=== PATIENT | female | born 1940 | race Caucasian/White ===

== ENCOUNTER 2018-02-28 16:44 | Observation (INO) | payer OTHER ==
--- OUTSIDE RECORDS SUMMARY | 2018-02-28 16:48 | XMS REPORT | Clinical Summary ---
:1940 Author Organization [facility] Address [address] [place] [address] Care Team Providers Name Role Phone Michael Villareal Primary Care Provider Allergies No Known Allergies Medications Medication Sig Dispensed Refills Start Date End Date Status omeprazole (PRILOSEC) Take 20 mg by 0 Active 20 MG capsule mouth daily. lovastatin (MEVACOR) Take 20 mg by 0 Active 20 MG tablet mouth nightly. amLODIPine-benazepril Take 1 capsule 0 Active (LOTREL 5-10) 5-10 mg by mouth daily. per capsule bumetanide (BUMEX) 1 Take 1 mg by 0 Active MG tablet mouth daily. alendronate (FOSAMAX) Take 70 mg by 0 Active 70 MG tablet mouth every 7 days Take in the morning with a full glass of water, on an empty stomach, and do not take anything else by mouth or lie down for the next 30 min. . levothyroxine Take 25 mcg by 0 Active (SYNTHROID, mouth Every LEVOTHROID) 25 MCG morning on an tablet empty stomach. traMADol (ULTRAM) 50 Take 1 tablet 30 tablet 0 02/16/2018 02/26/2018 mg tablet (50 mg total) by mouth every 6 (six) hours as needed for up to 10 days. Max Daily Amount: 200 mg Active Problems Problem Noted Date Malignant neoplasm of pancreas 02/12/2018 Pancreatic cancer 02/12/2018 Pancreatic mass 02/01/2018 Obstructive jaundice due to cancer 02/01/2018 Encounters Date Type Specialty Care Team Description 02/12/2018 Surgery Mark Escalera WHIPPLE MD 02/12/2018 Anesthesia Event Beto Charlton MD 02/12/2018 Hospital General Internal Mark Escalera, - Encounter Medicine 02/16/2018 02/08/2018 Hospital Pre-Admission Testing Resource, Oqfl Encounter Preadmit Phone 02/05/2018 Travel 02/03/2018 Anesthesia Event Gastroenterology Oracio Jensen MD 02/03/2018 Surgery Gastroenterology Randy Andrew MD 02/01/2018 [facility] Internal YrnSaturnino jara Pancreatic mass (Primary Dx); - Encounter Medicine MD Huber Jaundice; 02/06/2018 Rema, Obstructive jaundice due to cancer (HCC); MD Tiffanie Hypothyroidism, unspecified type; Phyllis, Hypertension, unspecified type; MD Marbin Hyperlipidemia, unspecified hyperlipidemia type after 02/27/2017 Social History Tobacco Use Types Packs/Day Years Used Date Never Smoker Smokeless Tobacco: Never Used Alcohol Use Drinks/Week oz/Week Comments No Sex Assigned at Date Recorded Not on file Job Start Date Occupation Industry Not on file Not on file Not on file Travel History Travel Start Travel End No recent travel history available. Last Filed Vital Signs Vital Sign Reading Time Taken Blood Pressure 149/62 02/16/2018 7:49 AM ROLLER CHECKER Pulse 90 02/16/2018 7:49 AM ROLLER CHECKER Temperature 36.8 C (98.3 F) 02/16/2018 7:49 AM ROLLER CHECKER Respiratory Rate 18 02/16/2018 7:49 AM ROLLER CHECKER Oxygen Saturation 97% 02/16/2018 7:49 AM ROLLER CHECKER Inhaled Oxygen Concentration - - Weight 62.6 kg (137 lb 14.4 oz) 02/14/2018 10:22 AM ROLLER CHECKER Height 162.6 cm (5' 4") 02/12/2018 6:07 AM ROLLER CHECKER Body Mass Index 23.67 02/14/2018 10:22 AM ROLLER CHECKER Plan of Treatment Not on file Implants Implanted Type Area Photocopying Equipment Mechanic Device Shelf Model / Identifier Expiration Serial / Lot Date Cath Exp [employer] 12.5cmx [id number] - [id number] Pain Left: LARRY BANDA 02/19/2020 [id number] / Implanted: Qty: 1 on 02/12/2018 by Mark Escalera MD Mgmt/Sti Abdomen / mulator [id number] Cath Exp [employer] License[employer] 12.5cmx [id number] - [id number] Pain Left: LARRY BNADA 02/19/2020 [id number] / Implanted: Qty: 1 on 02/12/2018 by Mark Escalera MD Mgmt/Sti Abdomen / mulator [id number] Stent Viabil Bili 10x6 No Hole [id number] - [id number] Stents-P Bile Duct [employer] GORE & [id number] / Implanted: Qty: 1 on 02/03/2018 by Randy Andrew MD [email or web address] ASSC: MED PRDT [id number] / l [id number] Procedures Procedure Name Priority Date/Time Associated Comments Diagnosis INTRAOPERATIVE PATH 02/26/2018 2:33 REPORT - SCAN PM ROLLER CHECKER RHYTHM STRIP - SCAN 02/19/2018 1:53 PM ROLLER CHECKER HEPATIC FUNCTION PANEL Routine 02/16/2018 5:29 Results for this AM ROLLER CHECKER procedure are in the results section. CBC (HEMOGRAM ONLY) Routine 02/15/2018 4:57 Results for this AM ROLLER CHECKER procedure are in the results section. PHOSPHORUS Routine 02/15/2018 4:57 Results for this AM ROLLER CHECKER procedure are in the results section. HEPATIC FUNCTION PANEL Routine 02/15/2018 4:57 Results for this AM ROLLER CHECKER procedure are in the results section. MAGNESIUM Routine 02/15/2018 4:57 Results for this AM ROLLER CHECKER procedure are in the results section. BASIC METABOLIC PANEL Routine 02/15/2018 4:57 Results for this (7) AM ROLLER CHECKER procedure are in the results section. AMYLASE, BODY FLUID Routine 02/15/2018 4:53 Results for this AM ROLLER CHECKER procedure are in the results section. AMYLASE, BODY FLUID Routine 02/15/2018 4:53 Results for this AM ROLLER CHECKER procedure are in the results section. URINALYSIS W/ REFLEX Routine 02/14/2018 6:09 Results for this URINE CULTURE AM ROLLER CHECKER procedure are in the results section. CBC (HEMOGRAM ONLY) Routine 02/14/2018 3:51 Results for this AM ROLLER CHECKER procedure are in the results section. PHOSPHORUS Routine 02/14/2018 3:51 Results for this AM ROLLER CHECKER procedure are in the results section. HEPATIC FUNCTION PANEL Routine 02/14/2018 3:51 Results for this AM ROLLER CHECKER procedure are in the results section. MAGNESIUM Routine 02/14/2018 3:51 Results for this AM ROLLER CHECKER procedure are in the results section. BASIC METABOLIC PANEL Routine 02/14/2018 3:51 Results for this (7) AM ROLLER CHECKER procedure are in the results section. AMYLASE, BODY FLUID Routine 02/14/2018 3:46 Results for this AM ROLLER CHECKER procedure are in the results section. AMYLASE, BODY FLUID Routine 02/14/2018 2:16 Results for this AM ROLLER CHECKER procedure are in the results section. TRANSFUSION SERVICE 02/13/2018 6:00 REPORT - SCAN PM ROLLER CHECKER CBC (HEMOGRAM ONLY) Routine 02/13/2018 6:01 Results for this AM ROLLER CHECKER procedure are in the results section. PHOSPHORUS Routine 02/13/2018 6:01 Results for this AM ROLLER CHECKER procedure are in the results section. HEPATIC FUNCTION PANEL Routine 02/13/2018 6:01 Results for this AM ROLLER CHECKER procedure are in the results section. MAGNESIUM Routine 02/13/2018 6:01 Results for this AM ROLLER CHECKER procedure are in the results section. BASIC METABOLIC PANEL Routine 02/13/2018 6:01 Results for this (7) AM ROLLER CHECKER procedure are in the results section. AMYLASE, BODY FLUID Routine 02/13/2018 6:01 Results for this AM ROLLER CHECKER procedure are in the results section. AMYLASE, BODY FLUID Routine 02/13/2018 6:01 Results for this AM ROLLER CHECKER procedure are in the results section. BASIC METABOLIC PANEL Routine 02/12/2018 4:46 Results for this (7) PM ROLLER CHECKER procedure are in the results section. CBC (HEMOGRAM ONLY) Routine 02/12/2018 4:46 Results for this PM ROLLER CHECKER procedure are in the results section. POTASSIUM Routine 02/12/2018 4:46 Results for this PM ROLLER CHECKER procedure are in the results section. BLOOD GAS, ARTERIAL STAT 02/12/2018 12:30 Results for this PM ROLLER CHECKER procedure are in the results section. CALCIUM, IONIZED STAT 02/12/2018 12:30 Results for this PM ROLLER CHECKER procedure are in the results section. HGB/HCT (H&H) - STAT STAT 02/12/2018 12:30 Results for this LAB PM ROLLER CHECKER procedure are in the results section. GLUCOSE-STAT LAB STAT 02/12/2018 12:30 Results for this PM ROLLER CHECKER procedure are in the results section. POTASSIUM-STAT LAB STAT 02/12/2018 12:30 Results for this PM ROLLER CHECKER procedure are in the results section. SODIUM NA-STAT LAB STAT 02/12/2018 12:30 Results for this PM ROLLER CHECKER procedure are in the results section. ANAEROBIC CULTURE Routine 02/12/2018 10:03 Results for this AM ROLLER CHECKER procedure are in the results section. SURGICALLY OBTAINED Routine 02/12/2018 10:03 Results for this CULTURE + GRAM STAIN AM ROLLER CHECKER procedure are in the results section. ANAEROBIC CULTURE Routine 02/12/2018 9:54 Results for this AM ROLLER CHECKER procedure are in the results section. SURGICALLY OBTAINED Routine 02/12/2018 9:54 Results for this CULTURE + GRAM STAIN AM ROLLER CHECKER procedure are in the results section. TISSUE EXAM AP Routine 02/12/2018 9:23 Results for this AM ROLLER CHECKER procedure are in the results section. ANESTHESIA SPINAL Routine 02/12/2018 8:58 Results for this BLOCK AM ROLLER CHECKER procedure are in the results section. BLOOD GAS, ARTERIAL STAT 02/12/2018 8:50 Results for this AM ROLLER CHECKER procedure are in the results section. CALCIUM, IONIZED STAT 02/12/2018 8:50 Results for this AM ROLLER CHECKER procedure are in the results section. HGB/HCT (H&H) - STAT STAT 02/12/2018 8:50 Results for this LAB AM ROLLER CHECKER procedure are in the results section. GLUCOSE-STAT LAB STAT 02/12/2018 8:50 Results for this AM ROLLER CHECKER procedure are in the results section. POTASSIUM-STAT LAB STAT 02/12/2018 8:50 Results for this AM ROLLER CHECKER procedure are in the results section. SODIUM NA-STAT LAB STAT 02/12/2018 8:50 Results for this AM ROLLER CHECKER procedure are in the results section. WHIPPLE 02/12/2018 8:00 Malignant neoplasm AM ROLLER CHECKER of pancreas, unspecified location of malignancy (HCC) Special Needs (ERAS PROTOCOL) PREPARE LEUKO-REDUCED Routine 02/12/2018 7:56 AM Results for this RBC ROLLER CHECKER procedure are in the results section. TYPE AND SCREEN, Routine 02/12/2018 6:28 AM Results for this AUTOMATED ROLLER CHECKER procedure are in the results section. POTASSIUM-STAT LAB Routine 02/12/2018 6:28 AM Results for this ROLLER CHECKER procedure are in the results section. RHYTHM STRIP - SCAN 02/07/2018 2:40 PM CDT CBC W/PLT COUNT & AUTO Routine 02/06/2018 5:32 AM Results for this DIFFERENTIAL CDT procedure are in the results section. CBC W/PLT COUNT & AUTO Routine 02/06/2018 5:32 AM Results for this DIFFERENTIAL CDT procedure are in the results section. MAGNESIUM Routine 02/06/2018 5:32 AM Results for this CDT procedure are in the results section. HEPATIC FUNCTION PANEL Routine 02/06/2018 5:32 AM Results for this CDT procedure are in the results section. BASIC METABOLIC PANEL Routine 02/06/2018 5:32 AM Results for this (7) CDT procedure are in the results section. CT ABD/PELVIS - STAT 02/05/2018 3:30 PM Results for this PANCREAS EVALUATION CDT procedure are in the results section. CBC W/PLT COUNT & AUTO Routine 02/05/2018 6:39 AM Results for this DIFFERENTIAL CDT procedure are in the results section. CBC W/PLT COUNT & AUTO Routine 02/05/2018 6:39 AM Results for this DIFFERENTIAL CDT procedure are in the results section. MAGNESIUM Routine 02/05/2018 6:39 AM Results for this CDT procedure are in the results section. HEPATIC FUNCTION PANEL Routine 02/05/2018 6:39 AM Results for this CDT procedure are in the results section. BASIC METABOLIC PANEL Routine 02/05/2018 6:39 AM Results for this (7) CDT procedure are in the results section. CBC W/PLT COUNT & AUTO Routine 02/04/2018 3:54 AM Results for this DIFFERENTIAL CDT procedure are in the results section. CBC W/PLT COUNT & AUTO Routine 02/04/2018 3:54 AM Results for this DIFFERENTIAL CDT procedure are in the results section. MAGNESIUM Routine 02/04/2018 3:54 AM Results for this CDT procedure are in the results section. HEPATIC FUNCTION PANEL Routine 02/04/2018 3:54 AM Results for this CDT procedure are in the results section. BASIC METABOLIC PANEL Routine 02/04/2018 3:54 AM Results for this (7) CDT procedure are in the results section. REPORT OF PROCEDURE - 02/03/2018 2:34 PM ENDOSCOPY URL CDT REPORT OF PROCEDURE - 02/03/2018 2:31 PM ENDOSCOPY URL CDT FL ERCP Routine 02/03/2018 1:14 PM Results for this CDT procedure are in the results section. CYTOLOGY REQUEST Routine 02/03/2018 1:08 PM Results for this CDT procedure are in the results section. FINE NEEDLE ASPIRATE Routine 02/03/2018 1:08 PM Results for this (FNA) REQUEST CDT procedure are in the results section. CYTOLOGY AP Routine 02/03/2018 1:08 PM Results for this CDT procedure are in the results section. FINE NEEDLE ASPIRATION AP Routine 02/03/2018 1:08 PM Results for this BY CLINICIAN CDT procedure are in the results section. TISSUE EXAM AP Routine 02/03/2018 1:07 PM Results for this CDT procedure are in the results section. ERCP,BILIARY STENT 02/03/2018 11:30 AM Pancreatic mass CDT ERCP,PAPILLOTOMY 02/03/2018 11:30 AM Pancreatic mass CDT ERCP,BALLOON SWEEPING 02/03/2018 11:30 AM Pancreatic mass CDT UPPER ENDOSCOPY,FNA 02/03/2018 11:30 AM Pancreatic mass W/ULTRASOUND CDT PROCEDURE W/ C-ARM 02/03/2018 11:30 AM Pancreatic mass CDT ERCP 02/03/2018 11:30 AM Pancreatic mass CDT CBC W/PLT COUNT & AUTO Routine 02/03/2018 5:38 AM Results for this DIFFERENTIAL CDT procedure are in the results section. CBC W/PLT COUNT & AUTO Routine 02/03/2018 5:38 AM Results for this DIFFERENTIAL CDT procedure are in the results section. MAGNESIUM Routine 02/03/2018 5:38 AM Results for this CDT procedure are in the results section. HEPATIC FUNCTION PANEL Routine 02/03/2018 5:38 AM Results for this CDT procedure are in the results section. BASIC METABOLIC PANEL Routine 02/03/2018 5:38 AM Results for this (7) CDT procedure are in the results section. AMYLASE Routine 02/03/2018 5:38 AM Results for this CDT procedure are in the results section. LIPASE Routine 02/03/2018 5:38 AM Results for this CDT procedure are in the results section. URINALYSIS W/ STAT 02/02/2018 7:33 PM Results for this MICROSCOPIC CDT procedure are in the results section. URINE CULTURE Add-On 02/02/2018 7:33 PM Results for this CDT procedure are in the results section. CBC W/PLT COUNT & AUTO Routine 02/02/2018 6:24 AM Results for this DIFFERENTIAL CDT procedure are in the results section. CBC W/PLT COUNT & AUTO Routine 02/02/2018 6:24 AM Results for this DIFFERENTIAL CDT procedure are in the results section. MAGNESIUM Routine 02/02/2018 6:24 AM Results for this CDT procedure are in the results section. HEPATIC FUNCTION PANEL Routine 02/02/2018 6:24 AM Results for this CDT procedure are in the results section. BASIC METABOLIC PANEL Routine 02/02/2018 6:24 AM Results for this (7) CDT procedure are in the results section. CBC W/PLT COUNT & AUTO STAT 02/01/2018 4:07 PM Results for this DIFFERENTIAL CDT procedure are in the results section. PT/APTT STAT 02/01/2018 4:07 PM Results for this CDT procedure are in the results section. BASIC METABOLIC PANEL STAT 02/01/2018 4:07 PM Results for this (7) CDT procedure are in the results section. HEPATIC FUNCTION PANEL STAT 02/01/2018 4:07 PM Results for this CDT procedure are in the results section. AMYLASE STAT 02/01/2018 4:07 PM Results for this CDT procedure are in the results section. LIPASE STAT 02/01/2018 4:07 PM Results for this CDT procedure are in the results section. CBC W/PLT COUNT & AUTO STAT 02/01/2018 4:07 PM Results for this DIFFERENTIAL CDT procedure are in the results section. after 02/27/2017 Results INTRAOPERATIVE PATH REPORT - SCAN (02/26/2018 2:33 PM ROLLER CHECKER) Narrative Performed At RHYTHM STRIP - SCAN (02/19/2018 1:53 PM ROLLER CHECKER)Only the most recent of2 resultswithin the time period is included. Narrative Performed At Hepatic function panel (02/16/2018 5:29 AM ROLLER CHECKER)Only the most recent of10 resultswithin the time period is included. Protein, Total 4.5 (L) 6.0 - 8.3 gm/dL [facility] Albumin 2.5 (L) 3.5 - 5.0 g/dL [facility] Total Bilirubin 2.3 (H) 0.2 - 1.2 mg/dL [facility] Bilirubin, Direct 1.8 (H) 0.1 - 0.5 mg/dL [facility] Alkaline Phosphatase 169 (H) 40 - 150 U/L [facility] AST 25 5 - 34 U/L [facility] ALT 32 6 - 55 U/L [facility] Specimen Blood - Arm, Right Narrative Performed At Specimen slightly icteric [facility] Performing Organization Address City/State/Zipcode Phone Number [facility] [address] [place] [phone] [facility] CBC (Hemogram only) (02/15/2018 4:57 AM ROLLER CHECKER)Only the most recent of4 resultswithin the time period is included. WBC 13.1 (H) 3.5 - 10.5 K/L [facility] RBC 3.05 (L) 3.93 - 5.22 M/L [facility] Hemoglobin 9.8 (L) 11.2 - 15.7 GM/DL [facility] Hematocrit 31.0 (L) 34.1 - 44.9 % [facility] MCV 101.6 (H) 79.4 - 94.8 fL [facility] MCH 32.1 25.6 - 32.2 pg [facility] MCHC 31.6 (L) 32.2 - 35.5 GM/DL [facility] RDW 15.7 (H) 11.7 - 14.4 % [facility] Platelets 335 150 - 450 K/CU MM [facility] MPV 10.2 9.4 - 12.3 fL [facility] nRBC 0 0 - 0 /100 WBC [facility] Specimen Blood - Arm, Right Performing Organization Address City/[facility] Phone Number [address] [address] C[place] Phosphorus (02/15/2018 4:57 AM ROLLER CHECKER)Only the most recent of3 resultswithin the time period is included. Phosphorus 1.2 (LL) 2.3 - 4.7 mg/dL [facility] Specimen Blood - Arm, Right Performing Organization Address City/[facility] Phone Number [address] [address] [facility] Magnesium (02/15/2018 4:57 AM ROLLER CHECKER)Only the most recent of8 resultswithin the time period is included. Magnesium 1.9 1.6 - 2.6 mg/dL [facility] Specimen Blood - Arm, Right Performing Organization Address [facility] Phone Number [address] [phone] [place] Basic Metabolic Panel (02/15/2018 4:57 AM ROLLER CHECKER)Only the most recent of10 resultswithin the time period is included. Sodium 137 136 - 145 meq/L [facility] Potassium 3.5 3.5 - 5.1 meq/L [facility] Chloride 106 98 - 107 meq/L [facility] CO2 23 22 - 29 meq/L [facility] BUN 8 7 - 21 mg/dL [facility] Creatinine 0.60 0.57 - 1.25 mg/dL [facility] Glucose 78 70 - 105 mg/dL [facility] Calcium 8.0 (L) 8.4 - 10.2 mg/dL [facility] EGFR 97Comment: ESTIMATED GFR IS mL/min/1.73 sq m [facility] NOT ACCURATE CREATININE [facility] CLEARANCE IN PREDICTING GLOMERULAR FILTRATION RATE. ESTIMATED GFR IS NOT APPLICABLE FOR DIALYSIS PATIENTS. Specimen Blood - Arm, Right Narrative Performed At Specimen slightly icteric [facility] Performing Organization Address City/[facility]/Zipcode Phone Number [place] [phone] [place] Amylase, body fluid (02/15/2018 4:53 AM ROLLER CHECKER)Only the most recent of6 resultswithin the time period is included. Amylase, Fluid 14 U/L [facility] Specimen Body Fluid - DOMINIC Drain Narrative Performed At Absence of reference range indicates that [facility] normals have not been defined. Assay performance has not been validated for this type of specimen. Lateral drain Performing Organization Address City/State/Zipcode Phone Number [facility] [address] [place] [phone] [place] Urinalysis w/Microscopic + Reflex to Culture (02/14/2018 6:09 AM ROLLER CHECKER) Color, UA Yellow [facility] Clarity, UA Clear [facility] Specific [place], UA 1.013 1.001 - 1.035 [facility] pH, UA 5.5 5.0 - 8.0 [facility] Protein, UA 30 mg/dL (A) Negative [facility] Glucose, UA Negative Negative [facility] Ketones, UA Negative Negative [facility] Bilirubin, UA Negative Negative [facility] Blood, UA Moderate (A) Negative [facility] Nitrite, UA Negative Negative [facility] Leukocytes, UA Negative Negative [facility] Urobilinogen, UA 0.2 0.2 - 1.0 mg/dL [facility] RBC, UA 1 /HPF [facility] WBC, UA 3 /HPF [facility] Bacteria, UA Rare [facility] Mucus Rare [facility] Squam Epithel, UA 2 /HPF [facility] Hyaline Casts, UA 1 /LPF [facility] Specimen Source [facility] Specimen Urine - Urine, Nadeen Performing Organization Address City/State/Zipcode Phone Number [facility] [address] [place] [address] [place] TRANSFUSION SERVICE REPORT - SCAN (02/13/2018 6:00 PM ROLLER CHECKER) Narrative Performed At Potassium (02/12/2018 4:46 PM ROLLER CHECKER) Potassium 4.6 3.5 - 5.1 meq/L [facility] Specimen Blood - Line, Arterial Performing Organization Address [facility] Phone Number [address] [phone] [place] Potassium-Stat Lab (02/12/2018 12:30 PM ROLLER CHECKER)Only the most recent of3 resultswithin the time period is included. Potassium 4.8 3.6 - 5.5 meq/L [facility] Specimen Blood, Arterial Performing Organization Address [facility] Phone Number [address] [address] [phone] [place] Sodium Na-Stat Lab (02/12/2018 12:30 PM ROLLER CHECKER)Only the most recent of2 resultswithin the time period is included. Sodium 135 135 - 148 meq/L [facility] Specimen Blood, Arterial Performing Organization Address [facility] Phone Number [address] [phone] [place] Glucose-Stat Lab (02/12/2018 12:30 PM ROLLER CHECKER)Only the most recent of2 resultswithin the time period is included. Glucose 126 (H) 70 - 110 mg/dL [facility] Specimen Blood, Arterial Performing Organization Address [facility] Phone Number [address] [address] [phone] CENTER HGB/HCT (H&H)-Stat Lab (02/12/2018 12:30 PM ROLLER CHECKER)Only the most recent of2 resultswithin the time period is included. Hemoglobin 10.1 (L) 12.0 - 15.0 g/dL [facility] Hematocrit 30.0 (L) 36.0 - 45.0 % [facility] Specimen Blood, Arterial Performing Organization Address City/State/Zipcode Phone Number [address] [phone] [place] Calcium, Ionized (02/12/2018 12:30 PM ROLLER CHECKER)Only the most recent of2 resultswithin the time period is included. Calcium, Ion 1.00 (L) 1.12 - 1.27 mmol/L [facility] pH, Blood 7.39 [facility] Specimen Blood Performing Organization Address City/[facility] Phone Number [address] [phone] [place] Blood gas, arterial (02/12/2018 12:30 PM ROLLER CHECKER)Only the most recent of2 resultswithin the time period is included. pH, Arterial 7.39 7.35 - 7.45 [facility] pCO2, Arterial 39 35 - 45 mmHg [facility] pO2, Arterial 269 (H) 80 - 90 mmHg [facility] O2 Sat, Arterial 99.6 (H) 96.0 - 97.0 % [facility] HCO3, Arterial 23 21 - 29 mmol/L [facility] Base Excess, Arterial -1.9 -2.0 - 3.0 mmol/L [facility] Patient Temperature 37.0 C [facility] [facility] FIO2 50.0 % [facility] Specimen Blood, Arterial Performing Organization Address City/[facility]/Zipcode Phone Number [address] [address] CENTER Anaerobic culture (02/12/2018 10:03 AM ROLLER CHECKER)Only the most recent of2 resultswithin the time period is included. Result CUTIBACTERIUM ACNES (A) [facility] Specimen Body Fluid - Common Bile Duct Performing Organization Address [facility] Phone Number [facility] [address] [place] [address] CENTER Surgically obtained culture + gram stain (02/12/2018 10:03 AM ROLLER CHECKER)Only the most recent of2 resultswithin the time period is included. Result 1+ Enterococcus species (A) [facility] Result [facility] (A) [facility] [employer] Gram Stain Result 1+ WBCs [facility] Gram Stain Result No organisms seen [facility] Specimen Body Fluid - Common Bile Duct Organism Antibiotic Method Susceptibility Enterococcus species Ampicillin <=2: Susceptible Enterococcus species Linezolid 2: Susceptible Enterococcus species Vancomycin 2: Susceptible Enterobacter cloacae Amikacin <=2: Susceptible complex Enterobacter cloacae Aztreonam <=1: Susceptible complex Enterobacter cloacae Cefepime <=1: Susceptible complex Enterobacter cloacae Cefoxitin 16: Resistant complex Enterobacter cloacae Ceftazidime <=1: Susceptible complex Enterobacter cloacae Ceftriaxone <=1: Susceptible complex Enterobacter cloacae Ertapenem <=0.5: Susceptible complex Enterobacter cloacae Gentamicin <=1: Susceptible complex Enterobacter cloacae Levofloxacin <=0.12: Susceptible complex Enterobacter cloacae Meropenem <=0.25: Susceptible complex Enterobacter cloacae Piperacillin + Tazobactam <=4: Susceptible complex Enterobacter cloacae Tetracycline <=1: Susceptible complex Enterobacter cloacae Tobramycin <=1: Susceptible complex Enterobacter cloacae Trimethoprim + Sulfamethoxazole <=20: Susceptible complex Performing Organization Address City/[facility]/Zipcode Phone Number [facility] [address] [place] [address] CENTER Tissue Exam (02/12/2018 9:23 AM ROLLER CHECKER)Only the most recent of2 resultswithin the time period is included. Case Report Surgical Pathology Report Case: [id number] [facility] Authorizing Provider:Mark Escalera MDCollected: 02/12/[address] [place] [address] Ordering Location: [facility] PERIOPERATIVE Received: 02/12/2018 1247 SERVICES Pathologist: Navarro Love MD Specimens: A) - Lymph Node, Hepatic Artery Lymph Node B) - Pancreas, Ink=Neck Margin, Blue Stitch=SMA, Black Stitch=Common Bile Duct DIAGNOSIS A. LYMPH NODE, HEPATIC ARTERY, EXCISION: [facility] - ONE BENIGN LYMPH NODE (0/1) [facility] B. 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) - CHOLEDOCHOLITHIASIS - AJCC PATHOLOGIC STAGE (8TH EDITION): III (pT2 pN2) Signing Pathologist Direct Phone Line: [phone] SYNOPTIC REPORT PANCREAS (EXOCRINE)(Pancreas Exo - All Specimens) [facility] SPECIMEN Procedure:Pancreaticoduodenectomy (Whipple resection), partial pancreatectomy TUMOR Tumor Site:Pancreatic head Histologic Type:Ductal adenocarcinoma Histologic Grade:G2: Moderately differentiated Tumor Size:Greatest dimension in Centimeters (cm): 2.8 Centimeters (cm) Additional Dimension in Centimeters (cm):2 Centimeters (cm) Additional Dimension in Centimeters (cm):1.5 Centimeters (cm ) Tumor Extent: Tumor Extension:Tumor invades peripancreatic soft tissues :Tumor invades retroperitoneal soft tissue Tumor Extension:Tumor involves vascular bed / groove ( corresponding to superior mesenteric vein / portal vein) Accessory Findings: Treatment Effect:No known presurgical therapy Lymphovascular Invasion:Present Perineural Invasion:Present MARGINS Margins: Pancreatic Neck / Parenchymal Margin:Uninvolved by invasive carcinoma Distance of Invasive Carcinoma from Margin:1 Centimeters (cm) Uncinate (Retroperitoneal / Superior Mesenteric Artery) Margin: Involved by invasive carcinoma Bile Duct Margin:Uninvolved by invasive carcinoma and high- grade intraepithelial neoplasia Distance of Invasive Carcinoma from Margin:3 Centimeters (cm) Proximal Margin (Gastric or Duodenal):Uninvolved by invasive carcinoma and high-grade dysplasia Distal Margin (Duodenal or Jejunal):Uninvolved by invasive carcinoma and high-grade dysplasia LYMPH NODES Number of Lymph Nodes Involved:5 Number of Lymph Nodes Examined:24 PATHOLOGIC STAGE CLASSIFICATION(pTNM, AJCC 8th Edition) TNM Descriptors:Not applicable Primary Tumor (pT):pT2 Regional Lymph Nodes (pN):pN2 ADDITIONAL FINDINGS Additional Pathologic Findings:Pancreatic intraepithelial neoplasia Highest Grade (PanIN):3 Additional Pathologic Findings:Chronic pancreatitis Additional Pathologic Findings:choledocholithiasis CPT Code(s) A. 90282 [facility] B. 08786, 74217, 25172 x2 [facility] CLINICAL HISTORY Malignant neoplasm of pancreas [facility] SPECIMEN SOURCE A. Hepatic artery lymph node; [facility] B. Whipple specimen [facility] GROSS DESCRIPTION Specimen A: Received fresh labeled "lymph node", description "hepatic artery lymph node" is a 1.3 x 1.0 x 0.2 cm pink-munson irregular lymph node. The specimen is bisected and entirely submitted in cassette A1. [facility] Specimen B: Received fresh labeled "Whipple specimen" is a whipple resection specimen including distal stomach, with pylorus, duodenum, head of pancreas, cystic duct and common bile duct stump. The stom ach/pylorus is 1.5 cm in length and 0.4 cm in wall thickness. The duodenum is 18 cm in length, 3 cm in average circumference and 0.3 cm in wall thickness. The pancreas is 3 x 2.5 X 1.5 cm in cross secti on. The common bile duct stump is 0.5 cm in length and 0.6 cm in diameter at the margin. The cystic duct is present, measuring 4 cm in length x 1 cm in diameter and disclosing a 0.8 cm stone. Bivalving the pancreas reveals a solid, 2.8 x 2 x 1.5 cm ill-defined mass, located in the uncinate process, nearly abutting the uncinate margin, 1 cm from the pancreatic neck margin, 3 cm from the commo n bile duct margin, 11 cm from the proximal (gastric) margin and 16 cm from the distal (duodenal) resection margin. The bile duct has a stent at the proximal end. The posterior surface and anterior surface are munson-red and without gross involvement by the mass. The uninvolved pancreas is munson and lobulated. The gastric mucosa and proximal duodenal mucosa are munson-pink and grossly unremarkable. The distal 9 cm of the duodenal mucosa appears hyperemic. Multiple lymph nodes are identified in the soft tissue around the organ. A gross photograph is taken. Ink code: green, uncinate margin; yellow - vascular groove; black - posterior pancreatic surface; blue - anterior pancreatic surface. Section code: B1, pancreatic neck resection margin, en face; B2, common bile duct margin, en face; B3, tumor, representative phlebotomy services; B4, vascular bed, en face; B5- B8, uncinate margin, perpendicular sections, e ntirely submitted; B9-B10, ampulla, both halves, en face; B11-B17, tumor ( B17 tumor in relation to common bile duct); B18, four lymph node candidates, posterior-inferior; B19, five lymph node candidates , posterior-superior; B20-B23, possible lymph node candidates, anterior- inferior; B24, gastric margin, en face; B25, duodenal margin, en face; B26, uninvolved pancreas with pancreatic and common bile du cts; B27-B28 duodenum, representative phlebotomy services; B29, cystic duct edge; B30, cystic duct representative phlebotomy services. OK/pl/ew INTRAOPERATIVE FROZEN SECTION DIAGNOSIS: [facility] CONSULTATION B1FS, PANCREATIC NECK MARGIN, NEGATIVE FOR CARCINOMA [facility] B2FS, COMMON BILE DUCT MARGIN, NEGATIVE FOR CARCINOMA B3FS, TUMOR [employer]; ADENOCARCINOMA The findings are reported to Dr. Escalera by Dr. Love on 12:49 p.m. February 12, 2018. Specimen Tissue - Lymph Node Performing Organization Address City/State/Zipcode Phone Number [facility] [address] [place] [address] CENTER ANESTHESIA SPINAL BLOCK (02/12/2018 8:58 AM ROLLER CHECKER) Narrative Performed At Albaro Freeman MD 02/12/20189:00 AM Spinal Block Patient location during procedure: OR Start time: 02/12/2018 8:07 AM End time: 02/12/2018 8:14 AM Procedure Indication: procedure for pain, at surgeon's request and post-op pain management Staffing Anesthesiologist: Alexi Emery MD Resident/CARTON INSPECTOR: Albaro Freeman MD Preanesthetic Checklist Completed: patient identified, pre-op evaluation, timeout performed, IV checked, risks and benefits discussed, monitors and equipment checked, anesthesia consent given, prep site dry prior to draping and maximum sterile barriers were used: cap, mask, sterile gown, sterile gloves, and large sterile sheet Prep Prep: Betadine Procedures: sterile gloves, surgical mask and surgical hat Spinal Block Patient position: sitting Patient monitoring: EKG, HR, BP and SpO2 Approach: midlineNo pictures available Level:L4-5 Injection technique: single-shot Needle Needle type: Pencan Needle gauge: 25 G Needle Length: 12 cm Used introducer Assessment Sensory level: T10 Events: cerebrospinal fluid Additional Notes Dr. Emery present throughout. Procedure Note Albaro Freeman MD - 02/12/2018 8:58 AM ROLLER CHECKER Spinal Block Patient location during procedure: OR Start time: 02/12/2018 8:07 AM End time: 02/12/2018 8:14 AM Procedure Indication: procedure for pain, at surgeon's request and post-op pain management Staffing Anesthesiologist: Alexi Emery MD Resident/CARTON INSPECTOR: Albaro Freeman MD Preanesthetic Checklist Completed: patient identified, pre-op evaluation, timeout performed, IV checked , risks and benefits discussed, monitors and equipment checked, anesthesia consent given, prep site dry prior to draping and maximum sterile barriers were used: cap, mask, sterile gown, sterile gloves, and large sterile sheet Prep Prep: Betadine Procedures: sterile gloves, surgical mask and surgical hat Spinal Block Patient position: sitting Patient monitoring: EKG, HR, BP and SpO2 Approach: midlineNo pictures available Level: L4-5 Injection technique: single-shot Needle Needle type: Pencan Needle gauge: 25 G Needle Length: 12 cm Used introducer Assessment Sensory level: T10 Events: cerebrospinal fluid Additional Notes Dr. Emery present throughout. Prepare Leuko-Red RBC (02/12/2018 7:56 AM ROLLER CHECKER) CROSSMATCH COMPATIBLE SAFETRACE TX Unit ABO O Pos SAFETRACE TX UNIT NUMBER [id number] SAFETRACE TX Status READY SAFETRACE TX Blood Bank Product RED BLOOD CELLS SAFETRACE TX PRODUCT CODE [id number] SAFETRACE TX CROSSMATCH COMPATIBLE SAFETRACE TX Unit ABO O Pos SAFETRACE TX UNIT NUMBER [id number] SAFETRACE TX Status READY SAFETRACE TX Blood Bank Product RED BLOOD CELLS SAFETRACE TX PRODUCT CODE [id number] SAFETRACE TX CROSSMATCH COMPATIBLE SAFETRACE TX Unit ABO O Pos SAFETRACE TX UNIT NUMBER [id number] SAFETRACE TX Status READY SAFETRACE TX Blood Bank Product RED BLOOD CELLS SAFETRACE TX PRODUCT CODE [id number] SAFETRACE TX CROSSMATCH COMPATIBLE SAFETRACE TX Unit ABO O Pos SAFETRACE TX UNIT NUMBER [id number] SAFETRACE TX Status READY SAFETRACE TX Blood Bank Product RED BLOOD CELLS SAFETRACE TX PRODUCT CODE [id number] SAFETRACE TX Specimen Other Performing Organization Address [facility] Phone Number SAFETRACE TX Type and screen, automated (02/12/2018 6:28 AM ROLLER CHECKER) ABO/RH AUTOMATED (BEAKER) O POSITIVE [facility] Ab Scrn NEGATIVE [facility] Specimen Blood Performing Organization Address [facility] Phone Number [facility] [address] [place] [address] CBC with platelet count + automated diff (02/06/2018 5:32 AM CDT)Only the most recent of6 resultswithin the time period is included. WBC 8.1 3.5 - 10.5 K/L [facility] RBC 2.82 (L) 3.93 - 5.22 M/L [facility] Hemoglobin 8.9 (L) 11.2 - 15.7 GM/DL [facility] Hematocrit 27.9 (L) 34.1 - 44.9 % [facility] MCV 98.9 (H) 79.4 - 94.8 fL [facility] MCH 31.6 25.6 - 32.2 pg [facility] MCHC 31.9 (L) 32.2 - 35.5 GM/DL [facility] RDW 15.7 (H) 11.7 - 14.4 % [facility] Platelets 222 150 - 450 K/CU MM [facility] MPV 10.2 9.4 - 12.3 fL [facility] nRBC 0 0 - 0 /100 WBC [facility] % Neutros 64 % [facility] % Lymphs 19 % [facility] % Monos 8 % [facility] % Eos 3 % [facility] % Baso 1 % [facility] # Neutros 5.17 1.56 - 6.13 K/L [facility] # Lymphs 1.56 1.18 - 3.74 K/L [facility] # Monos 0.63 (H) 0.24 - 0.36 K/L [facility] # Eos 0.24 0.04 - 0.36 K/L [facility] # Baso 0.06 0.01 - 0.08 K/L [facility] Immature Granulocytes-Relative 5 (H) 0 - 1 % [facility] Specimen Blood - Arm, Right Performing Organization Address City/State/Zipcode Phone Number [facility] [address] [place] [address] abd/pelvis - pancreas evaluation (02/05/2018 3:30 PM CDT) Narrative Performed At FINAL REPORT [employer] INDICATION: 77-year-old female with suspected pancreatic mass and abnormal upper endoscopic ultrasound. COMPARISON: ERCP February 03, 2018 TECHNIQUE: CT of the Abdomen and Pelvis WITHOUT and WITH intravenous contrast. Enteric contrast was used. The exam was performed according to our department dose-optimization protocol, which includes automated exposure control, adjustments of mA and kV according to patient size. Iterative reconstructions are also sometimes employed. FINDINGS: In the head of the pancreas there is a hypodense hypoenhancing mass (portal venous phase axial image 43, coronal image 31) measuring 3.2 x 2.5 x 2.1 cm. Despite placement of a expandable metallic stent in the common duct is not narrows the lumen to 2.5 mm. The proximal common hepatic duct is dilated measuring 11 cm in diameter and proximal to the proximal end of the metallic stent there is narrowing of the common hepatic duct, likely from mass effect of a dilated cystic duct remnant. The central intrahepatic ducts are mildly dilated measuring 7 mm. Main pancreatic duct is also dilated measuring 7 mm in diameter. No pancreatic gland atrophy. The pancreatic mass is in contact with the right posterolateral wall of the superior mesenteric vein involving approximately 120 degrees over 1 cm segment. There is a tributary that drains into the superior mesenteric vein at this level, it is on the anterior side of the superior mesenteric vein. No liver metastasis is demonstrated. There are several liver cysts measuring up to 4.5 cm. There are two subcentimeter hypodensities which do not change on multiphase postcontrast imaging, highly likely represent cysts. No upper abdominal lymphadenopathy. There is no gastric outlet obstruction. At the gastric cardia there is a hypodense area. Small bowel loops are unremarkable. Diverticuli of the sigmoid colon noted. Kidneys, adrenal glands, bladder unremarkable. There is scattered moderate calcified plaque of the abdominal aorta. There is suggestion of a TURP or prostatectomy. No pelvic or retroperitoneal lymphadenopathy. There is diffuse osteopenia and a chronic moderate compression fracture of the T12 vertebral body. No acute compression fracture. No suspicious osseous lesion demonstrated. IMPRESSION: 3 cm mass in the head of the pancreas, representing pancreatic adenocarcinoma. Mass is resectable by standard criteria. Hypodense area at the gastric cardia, may represent gastric fundoplication. If the patient has not had gastric fundoplication, this might represent a mass and endoscopic evaluation recommended. Prior TURP versus prostatectomy. Diffuse osteopenia and chronic T12 compression fracture. Signed: Jesús Pineda MD Report Verified Date/Time:02/06/2018 10:37:24 [place] Location: [facility] C0X Ortho Consult Reading Room Procedure Note Interface, External Ris In - 02/06/2018 10:39 AM CDT FINAL REPORT INDICATION: 77-year-old female with suspected pancreatic mass and abnormal upper endoscopic ultrasound. COMPARISON: ERCP February 03, 2018 TECHNIQUE: CT of the Abdomen and Pelvis WITHOUT and WITH intravenous contrast. Enteric contrast was used. The exam was performed according to our department dose-optimization protocol, which includes automated exposure control, adjustments of mA and kV according to patient size. Iterative reconstructions are also sometimes employed. FINDINGS: In the head of the pancreas there is a hypodense hypoenhancing mass (portal venous phase axial image 43, coronal image 31) measuring 3.2 x 2.5 x 2.1 cm. Despite placement of a expandable metallic stent in the common duct is not narrows the lumen to 2.5 mm. The proximal common hepatic duct is dilated measuring 11 cm in diameter and proximal to the proximal end of the metallic stent there is narrowing of the common hepatic duct, likely from mass effect of a dilated cystic duct remnant. The central intrahepatic ducts are mildly dilated measuring 7 mm. Main pancreatic duct is also dilated measuring 7 mm in diameter. No pancreatic gland atrophy. The pancreatic mass is in contact with the right posterolateral wall of the superior mesenteric vein involving approximately 120 degrees over 1 cm segment. There is a tributary that drains into the superior mesenteric vein at this level, it is on the anterior side of the superior mesenteric vein. No liver metastasis is demonstrated. There are several liver cysts measuring up to 4.5 cm. There are two subcentimeter hypodensities which do not change on multiphase postcontrast imaging, highly likely represent cysts. No upper abdominal lymphadenopathy. There is no gastric outlet obstruction. At the gastric cardia there is a hypodense area. Small bowel loops are unremarkable. Diverticuli of the sigmoid colon noted. Kidneys, adrenal glands, bladder unremarkable. There is scattered moderate calcified plaque of the abdominal aorta. There is suggestion of a TURP or prostatectomy. No pelvic or retroperitoneal lymphadenopathy. There is diffuse osteopenia and a chronic moderate compression fracture of the T12 vertebral body. No acute compression fracture. No suspicious osseous lesion demonstrated. IMPRESSION: 3 cm mass in the head of the pancreas, representing pancreatic adenocarcinoma. Mass is resectable by standard criteria. Hypodense area at the gastric cardia, may represent gastric fundoplication. If the patient has not had gastric fundoplication, this might represent a mass and endoscopic evaluation recommended. Prior TURP versus prostatectomy. Diffuse osteopenia and chronic T12 compression fracture. Signed: Jesús Pineda MD Report Verified Date/Time: 02/06/2018 10:37:24 Reading Location: [address] Ortho Consult Reading Room Performing Organization Address City/State/Zipcode Phone Number [facility] REPORT OF PROCEDURE - ENDOSCOPY URL (02/03/2018 2:34 PM CDT) Narrative Performed At REPORT OF PROCEDURE - ENDOSCOPY URL (02/03/2018 2:31 PM CDT) Narrative Performed At [place] ERCP (02/03/2018 1:14 PM CDT) Narrative Performed At FINAL REPORT [facility] ERCP, 02/03/2018 Clinical History: Jaundice Impression: Intraoperative images are obtained. The radiologist is not present during the procedure. Fluoroscopy was not performed by the undersigned.Images are presented for interpretation at the completion of the procedure.Please refer to the procedure report for more details. 19 images minimal with fluoroscopy time of 123 seconds demonstrating interrogation of a dilated common duct with stent placement. Signed: Dayne Dietrich MD Report Verified Date/Time:02/03/2018 13:28:45 Reading Location: [address] Ortho Consult Reading Room Procedure Note Interface, External Ris In - 02/03/2018 1:30 PM CDT FINAL REPORT ERCP, 02/03/2018 Clinical History: Jaundice Impression: Intraoperative images are obtained. The radiologist is not present during the procedure. Fluoroscopy was not performed by the undersigned. Images are presented for interpretation at the completion of the procedure. Please refer to the procedure report for more details. 19 images minimal with fluoroscopy time of 123 seconds demonstrating interrogation of a dilated common duct with stent placement. Signed: Dayne Dietrich MD Report Verified Date/Time: 02/03/2018 13:28:45 Reading Location: [address] Ortho Consult Reading Room Performing Organization Address City/State/Zipcode Phone Number [facility] CYTOLOGY REQUEST (02/03/2018 1:08 PM CDT) Cytology See Separate Report [facility] Specimen Brushings - Common Bile Duct Performing Organization Address City/[facility]/Zipcode Phone Number [facility] [address] [place] [address] [phone] [employer] FINE NEEDLE ASPIRATE (FNA) REQUEST (02/03/2018 1:08 PM CDT) Cytology See Separate Report [facility] Specimen Fine Needle Aspirate - FNA Performing Organization Address [facility] Phone Number [facility] [address] [place] [id number] [employer] Fine Needle Aspirate by Clinician (02/03/2018 1:08 PM CDT) Case Report Medical Cytology Report Case: [id number] [facility] Authorizing Provider:Randy Andrew MDCollected: 02/03/2018 1308 [facility] Ordering Location: [address] Received: 02/05/2018 1108 Service Pathologist: Steffi Renee MD Specimen:Pancreas, Head, Head of pancreas FNA DIAGNOSIS PANCREAS HEAD MASS FNA BY CLINICIAN (CYTOSPINS AND CELL BLOCK OF ASPIRATE): [facility] - FEW CLUSTERS OF ATYPICAL CELLS (SEE COMMENT) [facility] Signing Pathologist Direct Phone Line: [phone] COMMENT Very few atypical cell clusters with rare gland formation are seen in the cellblock. These cells are very few for a definite diagnosis. Background acinar tissue is present. Five levels are examined. [facility] Please see cases [id number] and [id number] CPT Code(s) 50335, 17203 [facility] CLINICAL DATA (2.2 x 2.0 cm) Irregular [facility] mass in the pancreatic [facility] head SPECIMEN SOURCE PANCREAS, HEAD MASS FNA [facility] GROSS DESCRIPTION 25 mls in cytorich red; 4 cytospins, cell block [facility] Collected: [id number] [facility] [place] Received: [id number] MICROSCOPIC DESCRIPTION PERFORMED [facility] Gross assessment was [facility] performed at [place], Department of [facility] Pathology, [address] [place] [id number], Technical component was [facility] performed at [place], Department of [facility] Pathology, [address] [place] [phone], Professional component was [facility] performed at [place], Department of [facility] Pathology, [address] [place] [phone], Specimen Fine Needle Aspirate - Pancreas, Head Narrative Performed At Performing Organization Address City/State/Zipcode Phone Number [address] [phone] [facility] Cytology (02/03/2018 1:08 PM CDT) Case Report Medical Cytology Report Case: [id number] [facility] Authorizing Provider:Randy Andrew MDCollected: 02/03/2018 1308 [facility] Ordering Location: [address] Received: 02/05/2018 1110 Service Pathologist: Steffi Renee MD Specimen:Common Bile Duct DIAGNOSIS COMMON BILE DUCT BRUSHING (CYTOSPINS): [facility] - NO MALIGNANT CELLS SEEN [facility] Signing Pathologist Direct Phone Line: [phone] COMMENT Please see cases [id number] [facility] and [id number] [facility] CPT Code(s) 65150 [facility] CLINICAL DATA Pancreatic head mass, bile [facility] duct stricture [facility] SPECIMEN SOURCE COMMON BILE DUCT BRUSHING [facility] GROSS DESCRIPTION 1 brush tip in cytorich red; 2 cytospins [facility] Collected: [id number] [facility] Received: [id number] STATEMENT OF ADEQUACY Satisfactory [facility] Gross assessment was [facility] performed at [place], Department of [facility] Pathology, [address] [place] [address], Technical component was [facility] performed at [place], Department of [facility] Pathology, [address] [place] [id number], Professional component was [facility] performed at [place], Department of [facility] Pathology, [address] [place] [address], Specimen Brushings - Common Bile Duct Narrative Performed At Performing Organization Address [facility] Phone Number [address] [phone] [facility] Lipase (02/03/2018 5:38 AM CDT)Only the most recent of2 resultswithin the time period is included. Lipase 489 (H) 8 - 78 U/L [facility] Specimen Blood - Arm, Left Narrative Performed At Specimen markedly [facility] Performing Organization Address [facility] Phone Number [address] [address] CENTER Amylase (02/03/2018 5:38 AM CDT)Only the most recent of2 resultswithin the time period is included. Amylase 202 (H) 25 - 125 U/L [facility] Specimen Blood - Arm, Left Narrative Performed At Specimen markedly [facility] Performing Organization Address [facility] Phone Number [address] [phone] [facility] Urinalysis w/Microscopic (02/02/2018 7:33 PM CDT) Color, UA Dark Yellow [facility] Clarity, UA Hazy [facility] Specific [place], UA 1.014 1.001 - 1.035 [facility] pH, UA 5.5 5.0 - 8.0 [facility] Protein, UA 20 mg/dL (A) Negative [facility] Glucose, UA Negative Negative [facility] Ketones, UA Negative Negative [facility] Bilirubin, UA Positive (A) Negative [facility] Blood, UA Trace (A) Negative [facility] Nitrite, UA Negative Negative [facility] Leukocytes, UA Large (A) Negative [facility] Urobilinogen, UA 0.2 0.2 - 1.0 mg/dL [facility] RBC, UA 0 /HPF [facility] WBC, UA >182 /HPF [facility] Squam Epithel, UA 7 /HPF [facility] Specimen Source Urine, Clean Catch [facility] Specimen Urine - Urine, Clean Catch Performing Organization Address City/[facility]/Zipcode Phone Number [address] [address] [place] Urine culture (02/02/2018 7:33 PM CDT) Result No growth [facility] Specimen Urine - Urine, Clean Catch Performing Organization Address City/[facility]/Zipcode Phone Number [address] [phone] [facility] PT/aPTT (02/01/2018 4:07 PM CDT) Protime 14.1 11.7 - 14.7 seconds [facility] INR 1.1 <=5.9 [facility] PTT 27.4 22.5 - 36.0 seconds [facility] Specimen Blood - Arm, Right Narrative Performed At [facility] RECOMMENDED COUMADIN/WARFARIN INR THERAPY RANGES STANDARD DOSE: 2.0 - 3.0 Includes: PROPHYLAXIS for venous thrombosis, systemic embolization; TREATMENT for venous thrombosis and/or pulmonary embolus. HIGH RISK: Target INR is 2.5-3.5 for patients with mechanical heart valves. Performing Organization Address City/State/Zipcode Phone Number [facility] [address] [place], [place] [phone] CENTER after 02/27/2017 Insurance Payer Benefit Plan / Group Subscriber ID Type Phone Address MEDICARE MEDICARE A B xxxxxxxxxxx Medicare AETNA - [place] CARE AETNA INDEMNITY NON CONTR xxxxxxxxx Comm Advance Directives For more information, please contact:[address] [phone] Code Status Date Activated Date Inactivated Comments Full Code 02/12/2018 8:48 PM This code status was determined by: Patient Full Code 02/12/2018 6:10 AM 02/12/2018 8:48 PM This code status was determined by: Patient Full Code 02/01/2018 6:36 PM 02/12/2018 5:47 AM This code status was determined by: Patient
--- OUTSIDE RECORDS SUMMARY | 2018-02-28 16:49 | XMS REPORT ---
:1940 [facility] Address [address] [place] [address] Care Team Providers Name Role Phone MARK ESCALERA Unavailable Unavailable CAS STAPLES Unavailable Unavailable Problems This patient has no known problems. Allergies, Adverse Reactions, Alerts This patient has no known allergies or adverse reactions. Medications This patient has no known medications. Results Test Description Test Time Test Comments Text Results Atomic Results Result Comments ANAEROBIC CULTURE 2018-02-20 04:17:00 Test Item Value Reference Range Comments CULTURE (BEAKER) (test dfeu=3988) <1+ Propionibacterium acnes ANAEROBIC [id number] 05:08:00 Test Item Value Reference Range Comments CULTURE (BEAKER) (test nqab=1132) No anaerobes isolated HEPATIC FUNCTION [id number] 06:35:00 Test Item Value Reference Range Comments TOTAL PROTEIN (BEAKER) (test qtvj=114) 4.5 gm/dL 6.0-8.3 ALBUMIN (BEAKER) (test wetf=4279) 2.5 g/dL 3.5-5.0 BILIRUBIN TOTAL (BEAKER) (test mnvz=130) 2.3 mg/dL 0.2-1.2 BILIRUBIN DIRECT (BEAKER) (test vyky=413) 1.8 mg/dL 0.1-0.5 ALKALINE PHOSPHATASE (BEAKER) (test vobo=485) 169 U/L 40-150 AST (SGOT) (BEAKER) (test tgkg=202) 25 U/L 5-34 ALT (SGPT) (BEAKER) (test tfla=839) 32 U/L 6-55 Specimen slightly ictericSURGICALLY OBTAINED CULTURE + GRAM [id number] 16: 50:00 Test Item Value Reference Range Comments CULTURE (BEAKER) (test ENTEROCOCCUS SPECIES 1+ Enterococcus species gtju=5449) Ampicillin (test code=26) Linezolid (test code=40) Tetracycline (test code=2) Vancomycin (test code=13) CULTURE (BEAKER) (test <1+ Enterobacter cloacae gvrl=8058) complex GRAM STAIN RESULT 1+ WBCs (BEAKER) (test ntlx=6279) GRAM STAIN RESULT No organisms seen (BEAKER) (test smqj=745494) TISSUE [id number] 10:00:00Surgical Pathology Report Case: [id number] Authorizing Provider: Mark Escalera MD Collected: 02/12/2018922 Ordering Location: [facility] PERI[facility] Received: 02/12/2018 1247 SERVICES Pathologist: Navarro Love MD Specimens: A) - Lymph Node, Hepatic Artery Lymph Node B) -Pancreas, Ink= Neck Margin, Blue Stitch=SMA, Black Stitch=Common Bile Duct A. LYMPH NODE, HEPATIC ARTERY, EXCISION: - ONE BENIGN LYMPH NODE (0/1)B. 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) - CHOLEDOCHOLITHIASIS - AJCC PATHOLOGIC STAGE (8TH EDITION): III (pT2 pN2) Signing Pathologist Direct Phone Line: [phone] signed by Navarro Love MD on 02/15/2018 at 10:00 AMPANCREAS (EXOCRINE) (Pancreas Exo - All Specimens)SPECIMEN Procedure: Pancreaticoduodenectomy (Whipple resection), partial pancreatectomy TUMOR Tumor Site: Pancreatic head Histologic Type: Ductal adenocarcinoma Histologic Grade: G2: Moderately differentiated Tumor Size: Greatest dimension in Centimeters (cm): 2.8 Centimeters (cm) Additional Dimension in Centimeters (cm): 2 Centimeters (cm) Additional Dimension in Centimeters (cm): 1.5 Centimeters (cm) Tumor Extent: Tumor Extension: Tumor invades peripancreatic soft tissues : Tumor invades retroperitoneal soft tissue Tumor Extension: Tumor involves vascular bed / groove( corresponding to superior mesenteric vein / portal vein) Accessory Findings: Treatment Effect: No known presurgical therapy Lymphovascular Invasion: Present Perineural Invasion: Present MARGINS Margins: Pancreatic Neck / Parenchymal Margin: Uninvolved by invasive carcinoma Distance of Invasive Carcinoma from Margin: 1 Centimeters (cm) Uncinate(Retroperitoneal / Superior Mesenteric Artery) Margin: Involved by invasive carcinoma Bile Duct Margin: Uninvolved by invasive carcinoma and high-grade intraepithelial neoplasia Distance of Invasive Carcinoma from Margin: 3 Centimeters (cm) Proximal Margin (Gastric or Duodenal): Uninvolved by invasive carcinoma and high-grade dysplasia Distal Margin ( Duodenal or Jejunal): Uninvolved by invasive carcinoma and high-grade dysplasia LYMPH NODES Number of Lymph NodesInvolved: 5 Number of Lymph Nodes Examined: 24 PATHOLOGIC STAGE CLASSIFICATION (pTNM, QSXQ5iw Edition) TNM Descriptors: Not applicable Primary Tumor (pT): pT2 Regional Lymph Nodes (pN): pN2 ADDITIONAL FINDINGS 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 38534V. 78355, 58071, 38350 g2Pzrqccxunkrgjupmv of pancreasA. Hepatic artery lymph node; B. Whipple specimenSpecimen A: Received fresh labeled "lymph node", description "hepatic artery lymph node" is a 1.3 x 1.0 x 0.2 cm pink-munson irregular lymph node. The specimen is bisected and entirely submitted in cassette A1. Specimen B: Received fresh labeled "Whipple specimen" is a whipple resection specimen including distal stomach, with pylorus, duodenum, head of pancreas, cystic duct and common bile duct stump. The stomach/pylorus is 1.5 cm in length and 0.4 cm in wall thickness. The duodenum is 18 cm in length, 3 cm in average circumference and 0.3 cm in wall thickness. The pancreas is 3 x 2.5 X 1.5 cm in cross section. The common bile duct stump is 0.5 cm in length and 0.6 cm in diameter at the margin. The cystic duct is present, measuring4 cm in length x 1 cm in diameter and disclosing a 0.8 cm stone. Bivalving the pancreas reveals a solid, 2.8 x 2 x 1.5 cm ill-defined mass, located in the uncinate process, nearly abutting the uncinatemargin, 1 cm from the pancreatic neck margin, 3 cm from the common bile duct margin, 11 cm from the proximal (gastric) margin and 16 cm from the distal (duodenal) resection margin. The bile duct has a stent at the proximal end. The posterior surface and anterior surface are munson-red and without gross involvement by the mass. The uninvolved pancreas is munson and lobulated. The gastric mucosa and proximalduodenal mucosa are munson-pink and grossly unremarkable. The distal 9 cm of the duodenal mucosa appears hyperemic. Multiple lymph nodes are identified in the soft tissue around the organ. A gross photograph is taken. Ink code: green, uncinate margin; yellow - vascular groove; black - posterior pancreatic surface; blue - anterior pancreatic surface.Section code: B1, pancreatic neck resection margin, en face; B2, common bile duct margin, en face; B3, tumor, district representative; B4, vascular bed, en face ; B5-B8, uncinate margin, perpendicular sections, entirely submitted; B9-B10, ampulla, both halves, en face; B11-B17, tumor (B17 tumor in relation to common bile duct); B18, four lymph node candidates, posterior-inferior; B19, five lymph node candidates, posterior-superior; B20-B23, possible lymph node candidates, anterior-inferior; B24, gastric margin, en face; B25, duodenal margin, en face; B26, uninvolved pancreas with pancreatic and common bile ducts ; B27-B28 duodenum, district representative; B29, cystic ductedge; B30, cystic duct district representative. OK/pl/ewFROZEN SECTION DIAGNOSIS: B1FS, PANCREATIC NECK MARGIN , NEGATIVE FOR WKKQDNPLJH6NP, COMMON BILE DUCT MARGIN, NEGATIVE FOR XMJVOCUKPK2FN, TUMOR PAPER BALER; ADENOCARCINOMAThe findings are reported to Dr. Escalera by Dr. Love on 12:49 p.m. February.[id number] 06 :20:00 Test Item Value Reference Range Comments PHOSPHORUS (BEAKER) (test fbaj=835) 1.2 mg/dL 2.3-4.7 [id number] 06:19:00 Test Item Value Reference Range Comments MAGNESIUM (BEAKER) (test nbpg=242) 1.9 mg/dL 1.6-2.6 BASIC METABOLIC [id number] 06:19:00 Test Item Value Reference Range Comments SODIUM (BEAKER) (test 137 meq/L 136-145 ijni=477) POTASSIUM (BEAKER) (test 3.5 meq/L 3.5-5.1 disd=631) CHLORIDE (BEAKER) (test 106 meq/L 98-107 cswg=619) CO2 (BEAKER) (test 23 meq/L 22-29 ewrr=964) BLOOD UREA NITROGEN 8 mg/dL 7-21 (BEAKER) (test xzor=109) CREATININE (BEAKER) (test 0.60 mg/dL 0.57-1.25 fzdf=203) GLUCOSE RANDOM (BEAKER) 78 mg/dL 70-105 (test ximb=593) CALCIUM (BEAKER) (test 8.0 mg/dL 8.4-10.2 kwqu=065) EGFR (BEAKER) (test 97 mL/min/1.73 sq m ESTIMATED GFR IS NOT cxar=3470) ACCURATE CREATININE CLEARANCE IN PREDICTING GLOMERULAR FILTRATION RATE. ESTIMATED GFR IS NOT APPLICABLE FOR DIALYSIS PATIENTS. Specimen slightly ictericHEPATIC FUNCTION [id number] 06:19:00 Test Item Value Reference Range Comments TOTAL PROTEIN (BEAKER) (test gage=836) 5.2 gm/dL 6.0-8.3 ALBUMIN (BEAKER) (test oeak=8021) 2.9 g/dL 3.5-5.0 BILIRUBIN TOTAL (BEAKER) (test tppd=160) 2.8 mg/dL 0.2-1.2 BILIRUBIN DIRECT (BEAKER) (test vvus=801) 2.0 mg/dL 0.1-0.5 ALKALINE PHOSPHATASE (BEAKER) (test dsbe=747) 194 U/L 40-150 AST (SGOT) (BEAKER) (test nqmg=077) 30 U/L 5-34 ALT (SGPT) (BEAKER) (test rxmy=302) 40 U/L 6-55 Specimen slightly ictericCBC (HEMOGRAM ONLY)2018-02-15 05:55:00 Test Item Value Reference Range Comments WHITE BLOOD CELL COUNT (BEAKER) (test wpxa=044) 13.1 K/ L 3.5-10.5 RED BLOOD CELL COUNT (BEAKER) (test ydpi=342) 3.05 M/ L 3.93-5.22 HEMOGLOBIN (BEAKER) (test bexm=296) 9.8 GM/DL 11.2-15.7 HEMATOCRIT (BEAKER) (test xmtp=424) 31.0 % 34.1-44.9 MEAN CORPUSCULAR VOLUME (BEAKER) (test yguv=289) 101.6 fL 79.4-94.8 MEAN CORPUSCULAR HEMOGLOBIN (BEAKER) (test 32.1 pg 25.6-32.2 ouqv=580) MEAN CORPUSCULAR HEMOGLOBIN CONC (BEAKER) (test 31.6 GM/DL 32.2-35.5 qavv=168) RED CELL DISTRIBUTION WIDTH (BEAKER) (test 15.7 % 11.7-14.4 mjoy=801) PLATELET COUNT (BEAKER) (test owqs=213) 335 K/CU MM 150-450 MEAN PLATELET VOLUME (BEAKER) (test gfdk=214) 10.2 fL 9.4-12.3 NUCLEATED RED BLOOD CELLS (BEAKER) (test 0 /100 WBC 0-0 awau=040) AMYLASE, BODY [id number] 05:30:00 Test Item Value Reference Range Comments AMYLASE FLUID (BEAKER) (test dnhm=098) 14 U/L Absence of reference range indicates that normals have not been defined.Assay performance has not been validated for this type of specimen.Lateral drainAMYLASE, BODY [id number] 05:30:00 Test Item Value Reference Range Comments AMYLASE FLUID (BEAKER) (test mgnv=872) 12 U/L Absence of reference range indicates that normals have not been defined.Assay performance has not been validated for this type of specimen.Medial drainSURGICALLY OBTAINED CULTURE + GRAM [id number] 10:26:00 Test Item Value Reference Range Comments CULTURE (BEAKER) (test ACINETOBACTER 1+ Acinetobacter xmqu=5160) BAUMANNII baumannii Amikacin (test code=1) Susceptible 0-16 , Resistant <0 or >16 Ampicillin + Sulbactam Susceptible 0-8 , (test code=6) Resistant <0 or >8 Aztreonam (test code=32) Cefepime (test code=51) Susceptible 0-8 , Resistant <0 or >8 Ceftazidime (test Susceptible 0-8 , code=27) Resistant <0 or >8 Ceftriaxone (test Susceptible 0-8 , code=52) Resistant <0 or >8 Ciprofloxacin (test Susceptible 0-1 , code=7) Resistant <0 or >1 Gentamicin (test Susceptible 0-4 , code=18) Resistant <0 or >4 Levofloxacin (test Susceptible 0-2 , code=22) Resistant <0 or >2 Meropenem (test code=34) Susceptible 0-2 , Resistant <0 or >2 Minocycline (test Susceptible 0-4 , code=35) Resistant <0 or >4 Piperacillin (test Susceptible 0-16 , code=24) Resistant <0 or >16 Piperacillin + Susceptible 0-16 , Tazobactam (test Resistant <0 or >16 code=29) Tetracycline (test Susceptible 0-4 , code=2) Resistant <0 or >4 Tobramycin (test Susceptible 0-4 , code=25) Resistant <0 or >4 Trimethoprim + Susceptible 0-40 , Sulfamethoxazole (test Resistant <0 or >40 code=47) CULTURE (BEAKER) (test From Broth Only Same lrkj=2754) organism has been isolated from cultures(s) of the same body site and collection date. Repeat identification and susceptibility testing performed only after consultation with the clinical microbiology laboratory.Refer to previous culture ofEnterococcus species GRAM STAIN RESULT 2+ White blood cells (BEAKER) (test seen dvzp=9374) GRAM STAIN RESULT 1+ gram positive (BEAKER) (test cocci klid=452604) GRAM STAIN RESULT <1+ gram negative (BEAKER) (test rods cyfw=044245) URINALYSIS W/ REFLEX URINE [id number] 06:48:00 Test Item Value Reference Range Comments COLOR (BEAKER) (test tndo=094) Yellow CLARITY (BEAKER) (test cuqm=333) Clear SPECIFIC GRAVITY UA (BEAKER) (test btij=735) 1.013 1.001-1.035 PH UA (BEAKER) (test aqeo=261) 5.5 5.0-8.0 PROTEIN UA (BEAKER) (test hhht=984) 30 mg/dL Negative GLUCOSE UA (BEAKER) (test odsf=933) Negative Negative KETONES UA (BEAKER) (test egvn=050) Negative Negative BILIRUBIN UA (BEAKER) (test afml=343) Negative Negative BLOOD UA (BEAKER) (test wqwz=935) Moderate Negative NITRITE UA (BEAKER) (test aweu=948) Negative Negative LEUKOCYTE ESTERASE UA (BEAKER) (test bfyp=285) Negative Negative UROBILINOGEN UA (BEAKER) (test xavc=459) 0.2 mg/dL 0.2-1.0 RBC UA (BEAKER) (test wdvk=004) 1 /HPF WBC UA (BEAKER) (test nuvr=587) 3 /HPF BACTERIA (BEAKER) (test xxtc=598) Rare MUCUS (BEAKER) (test dshc=8869) Rare SQUAMOUS EPITHELIAL (BEAKER) (test jxim=735) 2 /HPF HYALINE CASTS (BEAKER) (test wspf=047) 1 /LPF SOURCE(BEAKER) (test mylg=8729) BASIC METABOLIC [id number] 05:46:00 Test Item Value Reference Range Comments SODIUM (BEAKER) (test 136 meq/L 136-145 carg=086) POTASSIUM (BEAKER) (test 3.1 meq/L 3.5-5.1 tida=915) CHLORIDE (BEAKER) (test 105 meq/L 98-107 pvnc=401) CO2 (BEAKER) (test 24 meq/L 22-29 yaer=039) BLOOD UREA NITROGEN 13 mg/dL 7-21 (BEAKER) (test srdj=525) CREATININE (BEAKER) (test 0.58 mg/dL 0.57-1.25 galb=315) GLUCOSE RANDOM (BEAKER) 85 mg/dL 70-105 (test wtht=360) CALCIUM (BEAKER) (test 7.5 mg/dL 8.4-10.2 wvfc=577) EGFR (BEAKER) (test 101 mL/min/1.73 sq m ESTIMATED GFR IS NOT bfmi=5793) ACCURATE CREATININE CLEARANCE IN PREDICTING GLOMERULAR FILTRATION RATE. ESTIMATED GFR IS NOT APPLICABLE FOR DIALYSIS PATIENTS. Specimen slightly [id number] 05:36:00 Test Item Value Reference Range Comments PHOSPHORUS (BEAKER) (test mczj=547) 2.3 mg/dL 2.3-4.7 [id number] 05:36:00 Test Item Value Reference Range Comments MAGNESIUM (BEAKER) (test bevc=646) 1.8 mg/dL 1.6-2.6 HEPATIC FUNCTION [id number] 05:36:00 Test Item Value Reference Range Comments TOTAL PROTEIN (BEAKER) (test ogps=949) 4.6 gm/dL 6.0-8.3 ALBUMIN (BEAKER) (test dqoo=5298) 2.8 g/dL 3.5-5.0 BILIRUBIN TOTAL (BEAKER) (test vlbg=986) 3.0 mg/dL 0.2-1.2 BILIRUBIN DIRECT (BEAKER) (test txsv=547) 1.9 mg/dL 0.1-0.5 ALKALINE PHOSPHATASE (BEAKER) (test yafx=945) 179 U/L 40-150 AST (SGOT) (BEAKER) (test uzxv=633) 32 U/L 5-34 ALT (SGPT) (BEAKER) (test rcaq=716) 43 U/L 6-55 Specimen slightly ictericCBC (HEMOGRAM ONLY)2018-02-14 05:11:00 Test Item Value Reference Range Comments WHITE BLOOD CELL COUNT (BEAKER) (test yfmb=401) 15.1 K/ L 3.5-10.5 RED BLOOD CELL COUNT (BEAKER) (test zmav=325) 2.76 M/ L 3.93-5.22 HEMOGLOBIN (BEAKER) (test iusx=933) 9.0 GM/DL 11.2-15.7 HEMATOCRIT (BEAKER) (test urfc=182) 28.3 % 34.1-44.9 MEAN CORPUSCULAR VOLUME (BEAKER) (test jfed=605) 102.5 fL 79.4-94.8 MEAN CORPUSCULAR HEMOGLOBIN (BEAKER) (test 32.6 pg 25.6-32.2 jpum=863) MEAN CORPUSCULAR HEMOGLOBIN CONC (BEAKER) (test 31.8 GM/DL 32.2-35.5 qzbj=999) RED CELL DISTRIBUTION WIDTH (BEAKER) (test 16.0 % 11.7-14.4 fwqk=523) PLATELET COUNT (BEAKER) (test hcwz=616) 292 K/CU MM 150-450 MEAN PLATELET VOLUME (BEAKER) (test qdjt=844) 10.4 fL 9.4-12.3 NUCLEATED RED BLOOD CELLS (BEAKER) (test 0 /100 WBC 0-0 wfma=666) AMYLASE, BODY [id number] 04:25:00 Test Item Value Reference Range Comments AMYLASE FLUID (BEAKER) (test hwko=783) 32 U/L Absence of reference range indicates that normals have not been defined.Assay performance has not been validated for this type of specimen.Lateral drainAMYLASE, BODY [id number] 04:25:00 Test Item Value Reference Range Comments AMYLASE FLUID (BEAKER) (test xqql=191) 56 U/L Absence of reference range indicates that normals have not been defined.Assay performance has not been validated for this type of specimen.Medial drainAMYLASE , BODY [id number] 08:26:00 Test Item Value Reference Range Comments AMYLASE FLUID (BEAKER) (test qgfr=098) 87 U/L Absence of reference range indicates that normals have not been defined.Assay performance has not been validated for this type of specimen.Medial drainAMYLASE , BODY [id number] 08:11:00 Test Item Value Reference Range Comments AMYLASE FLUID (BEAKER) (test aegf=426) 91 U/L Absence of reference range indicates that normals have not been defined.Assay performance has not been validated for this type of specimen.Lateral drainBASIC METABOLIC [id number] 07:04:00 Test Item Value Reference Range Comments SODIUM (BEAKER) (test 136 meq/L 136-145 llny=000) POTASSIUM (BEAKER) (test 4.1 meq/L 3.5-5.1 ptxr=250) CHLORIDE (BEAKER) (test 111 meq/L 98-107 vkdi=857) CO2 (BEAKER) (test 20 meq/L 22-29 hwah=518) BLOOD UREA NITROGEN 15 mg/dL 7-21 (BEAKER) (test inmm=425) CREATININE (BEAKER) (test 0.66 mg/dL 0.57-1.25 bgvb=560) GLUCOSE RANDOM (BEAKER) 103 mg/dL 70-105 (test labo=557) CALCIUM (BEAKER) (test 7.6 mg/dL 8.4-10.2 fddm=479) EGFR (BEAKER) (test 87 mL/min/1.73 sq m ESTIMATED GFR IS NOT fmog=0270) ACCURATE CREATININE CLEARANCE IN PREDICTING GLOMERULAR FILTRATION RATE. ESTIMATED GFR IS NOT APPLICABLE FOR DIALYSIS PATIENTS. Specimen slightly [id number] 07:02:00 Test Item Value Reference Range Comments PHOSPHORUS (BEAKER) (test owir=274) 2.1 mg/dL 2.3-4.7 [id number] 07:02:00 Test Item Value Reference Range Comments MAGNESIUM (BEAKER) (test zxzc=015) 1.4 mg/dL 1.6-2.6 HEPATIC FUNCTION [id number] 07:02:00 Test Item Value Reference Range Comments TOTAL PROTEIN (BEAKER) (test crxr=436) 5.3 gm/dL 6.0-8.3 ALBUMIN (BEAKER) (test tcnz=9665) 3.3 g/dL 3.5-5.0 BILIRUBIN TOTAL (BEAKER) (test fugh=161) 3.3 mg/dL 0.2-1.2 BILIRUBIN DIRECT (BEAKER) (test kjzg=611) 2.2 mg/dL 0.1-0.5 ALKALINE PHOSPHATASE (BEAKER) (test jmnd=065) 208 U/L 40-150 AST (SGOT) (BEAKER) (test xjhy=929) 50 U/L 5-34 ALT (SGPT) (BEAKER) (test ujiz=503) 60 U/L 6-55 Specimen slightly ictericCBC (HEMOGRAM ONLY)2018-02-13 07:00:00 Test Item Value Reference Range Comments WHITE BLOOD CELL COUNT (BEAKER) (test pore=914) 16.5 K/ L 3.5-10.5 RED BLOOD CELL COUNT (BEAKER) (test ahod=320) 3.13 M/ L 3.93-5.22 HEMOGLOBIN (BEAKER) (test onun=837) 10.3 GM/DL 11.2-15.7 HEMATOCRIT (BEAKER) (test qtui=666) 32.6 % 34.1-44.9 MEAN CORPUSCULAR VOLUME (BEAKER) (test dmag=370) 104.2 fL 79.4-94.8 MEAN CORPUSCULAR HEMOGLOBIN (BEAKER) (test 32.9 pg 25.6-32.2 tfiw=165) MEAN CORPUSCULAR HEMOGLOBIN CONC (BEAKER) (test 31.6 GM/DL 32.2-35.5 rnxf=942) RED CELL DISTRIBUTION WIDTH (BEAKER) (test 16.1 % 11.7-14.4 gauv=057) PLATELET COUNT (BEAKER) (test jmzc=062) 366 K/CU MM 150-450 MEAN PLATELET VOLUME (BEAKER) (test fpji=467) 9.9 fL 9.4-12.3 NUCLEATED RED BLOOD CELLS (BEAKER) (test 0 /100 WBC 0-0 vind=322) BASIC METABOLIC [id number] 17:20:00 Test Item Value Reference Range Comments SODIUM (BEAKER) (test 137 meq/L 136-145 ddem=388) POTASSIUM (BEAKER) (test 4.6 meq/L 3.5-5.1 ztja=287) CHLORIDE (BEAKER) (test 110 meq/L 98-107 afnq=475) CO2 (BEAKER) (test 21 meq/L 22-29 hfzg=817) BLOOD UREA NITROGEN 16 mg/dL 7-21 (BEAKER) (test uzmr=585) CREATININE (BEAKER) (test 0.77 mg/dL 0.57-1.25 baji=811) GLUCOSE RANDOM (BEAKER) 151 mg/dL 70-105 (test jxlv=576) CALCIUM (BEAKER) (test 7.8 mg/dL 8.4-10.2 sugi=127) EGFR (BEAKER) (test 73 mL/min/1.73 sq m ESTIMATED GFR IS NOT cddm=3382) ACCURATE CREATININE CLEARANCE IN PREDICTING GLOMERULAR FILTRATION RATE. ESTIMATED GFR IS NOT APPLICABLE FOR DIALYSIS PATIENTS. Specimen slightly [id number] 17:19:00 Test Item Value Reference Range Comments POTASSIUM (BEAKER) (test robt=130) 4.6 meq/L 3.5-5.1 CBC (HEMOGRAM ONLY)2018-02-12 16:54:00 Test Item Value Reference Range Comments WHITE BLOOD CELL COUNT (BEAKER) (test vyae=107) 11.9 K/ L 3.5-10.5 RED BLOOD CELL COUNT (BEAKER) (test diej=636) 2.91 M/ L 3.93-5.22 HEMOGLOBIN (BEAKER) (test twqk=851) 9.3 GM/DL 11.2-15.7 HEMATOCRIT (BEAKER) (test tbnl=835) 29.1 % 34.1-44.9 MEAN CORPUSCULAR VOLUME (BEAKER) (test scnc=027) 100.0 fL 79.4-94.8 MEAN CORPUSCULAR HEMOGLOBIN (BEAKER) (test 32.0 pg 25.6-32.2 pphg=863) MEAN CORPUSCULAR HEMOGLOBIN CONC (BEAKER) (test 32.0 GM/DL 32.2-35.5 xtsa=332) RED CELL DISTRIBUTION WIDTH (BEAKER) (test 15.5 % 11.7-14.4 yfib=379) PLATELET COUNT (BEAKER) (test spqy=142) 299 K/CU MM 150-450 MEAN PLATELET VOLUME (BEAKER) (test xpyh=059) 9.5 fL 9.4-12.3 NUCLEATED RED BLOOD CELLS (BEAKER) (test 0 /100 WBC 0-0 dzua=702) GLUCOSE-STAT [id number] 12:41:00 Test Item Value Reference Range Comments GLUCOSE RANDOM (BEAKER) (test ggck=920) 126 mg/dL 70-110 HGB/HCT (H&H) - STAT [id number] 12:41:00 Test Item Value Reference Range Comments HEMOGLOBIN (BEAKER) (test olhj=517) 10.1 g/dL 12.0-15.0 HEMATOCRIT (BEAKER) (test oixq=129) 30.0 % 36.0-45.0 BLOOD GAS, [id number] 12:41:00 Test Item Value Reference Range Comments PH ARTERIAL (BEAKER) (test yhph=520) 7.39 7.35-7.45 PCO2 ARTERIAL (BEAKER) (test nslu=252) 39 mmHg 35-45 PO2 ARTERIAL (BEAKER) (test byln=928) 269 mmHg 80-90 O2 SATURATION ARTERIAL (BEAKER) (test iobr=463) 99.6 % 96.0-97.0 HCO3 ARTERIAL (BEAKER) (test olka=304) 23 mmol/L 21-29 BASE EXCESS ARTERIAL (BEAKER) (test jovj=896) -1.9 mmol/L -2.0-3.0 PATIENT TEMPERATURE (BEAKER) (test pxvl=7261) 37.0 C FIO2 (BEAKER) (test cktj=0071) 50.0 % CALCIUM, [id number] 12:41:00 Test Item Value Reference Range Comments CALCIUM IONIZED (BEAKER) (test kosz=282) 1.00 mmol/L 1.12-1.27 PH, BLOOD (BEAKER) (test rngj=9058) 7.39 SODIUM NA-STAT [id number] 12:40:00 Test Item Value Reference Range Comments SODIUM (BEAKER) (test ftnj=165) 135 meq/L 135-148 POTASSIUM-STAT [id number] 12:40:00 Test Item Value Reference Range Comments POTASSIUM (BEAKER) (test szog=275) 4.8 meq/L 3.6-5.5 POTASSIUM-STAT [id number] 08:57:00 Test Item Value Reference Range Comments POTASSIUM (BEAKER) (test fbst=048) 2.9 meq/L 3.6-5.5 HGB/HCT (H&H) - STAT [id number] 08:57:00 Test Item Value Reference Range Comments HEMOGLOBIN (BEAKER) (test rkkl=876) 10.1 g/dL 12.0-15.0 HEMATOCRIT (BEAKER) (test nutb=192) 30.0 % 36.0-45.0 BLOOD GAS, [id number] 08:57:00 Test Item Value Reference Range Comments PH ARTERIAL (BEAKER) (test hhyg=534) 7.53 7.35-7.45 PCO2 ARTERIAL (BEAKER) (test yirl=468) 27 mmHg 35-45 PO2 ARTERIAL (BEAKER) (test lper=830) 347 mmHg 80-90 O2 SATURATION ARTERIAL (BEAKER) (test jhmn=589) 99.8 % 96.0-97.0 HCO3 ARTERIAL (BEAKER) (test hmko=496) 22 mmol/L 21-29 BASE EXCESS ARTERIAL (BEAKER) (test huax=362) 0.4 mmol/L -2.0-3.0 PATIENT TEMPERATURE (BEAKER) (test csyf=5682) 37.0 C FIO2 (BEAKER) (test lwvp=1739) 90.0 % CALCIUM, [id number] 08:57:00 Test Item Value Reference Range Comments CALCIUM IONIZED (BEAKER) (test zudp=583) 1.09 mmol/L 1.12-1.27 PH, BLOOD (BEAKER) (test grgj=3405) 7.53 GLUCOSE-STAT [id number] 08:56:00 Test Item Value Reference Range Comments GLUCOSE RANDOM (BEAKER) (test mjex=804) 93 mg/dL 70-110 SODIUM NA-STAT [id number] 08:56:00 Test Item Value Reference Range Comments SODIUM (BEAKER) (test rouc=594) 135 meq/L 135-148 POTASSIUM-STAT [id number] 06:57:00 Test Item Value Reference Range Comments POTASSIUM (BEAKER) (test gekq=780) 3.0 meq/L 3.6-5.5 [id number] 17:22:00Medical Cytology Report Case: [id number] Authorizing Provider: Randy Andrew MD Collected: 02/03/2018 1308 Ordering Location: [address] Received: 02/05/2018 1110 Service Pathologist: Steffi Renee MD Specimen: Common Bile Duct COMMON BILE DUCT BRUSHING (CYTOSPINS): - NO MALIGNANT CELLS SEEN Signing Pathologist Direct Phone Line: [phone] signed by Steffi Renee MD on 02/07/2018 at 5:22 PMPlease see cases [id number] and [id number] head mass, bile duct strictureCOMMON BILE DUCT BRUSHING1 brush tipin cytorich red; 2 cytospinsCollected: [id number]: [id number] Beach Community Hospital, Department of Pathology, [address] [place] [address], [facility], Department of Pathology, [address] [place] [id number] , ChddjmLoma [facility], Department of Pathology, [address] [place] [address], KRNI NEEDLE ASPIRATION BY [id number] 11:04:00Medical Cytology Report Case: [id number] Authorizing Provider: Randy Andrew MD Collected: 02/03/2018 1308 Ordering Location: [address] Received: 02/05/2018 1108 Service Pathologist: Steffi Renee MD Specimen: Pancreas, Head, Head of pancreas FNA PANCREAS HEAD MASS FNA BY CLINICIAN (CYTOSPINS AND CELL BLOCK OF ASPIRATE) : - FEW CLUSTERS OF ATYPICAL CELLS (SEE COMMENT) Signing Pathologist Direct Phone Line: [phone] signed by Keith Renee MD on 02/07/2018 at 11:04 AMVery few atypical cell clusters with rare gland formation are seen in the cellblock. These cells are very few for a definite diagnosis. Background acinar tissue is present. Five levels are examined.Please see cases [id number] and [id number], 79300(2.2 x 2.0 cm) Irregular mass in the pancreatic headPANCREAS, HEAD MASS FNA25 mls in cytorich red; 4 cytospins, cell blockCollected: [id number]: [id number] [facility], Department of Pathology, [address] [place] [address], Tel [facility], Department of Pathology, [address] [place] [address], [facility]wx[facility], Department of Pathology, [address] [place] [id number], Tel TISSUE [id number] 18:25:00Surgical Pathology Report Case: [id number] Authorizing Provider: Randy Andrew MD Collected: 02/03/2018 1307 Ordering Location: [address] Received: 2017 0812 Service Pathologist: Shayan Green MD Specimen: Pancreas, Head, FNA -head of pancreas PANCREAS, HEAD, FNA BIOPSY OF MASS- ADENOCARCINOMA- SEE COMMENT Signing Pathologist Direct Phone Line: [phone] signed by Shayan Green MD on 2017 at 6:25 PMAbundant benign acinar tissue is seen in the background. Please also see concurrent cytology reports [id number] and [id number].Intradepartmental consultation: Los Baez MD has seen the case and agrees with the diagnosis.[id number] mass, jaundice Head of pancreas FNA biopsy Received in formalin labeled "pancreas, head" are multiple carrion-white friable fragments of soft tissue admixed with clotted blood measuring 1.5 x 1.1 x 02 cm in aggregate. The specimen is entirely submitted in cassette A1. DB/ew Performed.CT , ABDOMEN - PELVIS, PANCREAS [id number] 10:37:00Reason for exam:-> abnormal EUSFINAL REPORT INDICATION:77-year-old female with suspected pancreatic mass andabnormal upper endoscopic ultrasound. COMPARISON: ERCP February 03, 2018 TECHNIQUE: CT of the Abdomenand Pelvis WITHOUT and WITH intravenous contrast. Enteric contrast was used. The exam was performed according to our department dose-optimization protocol, which includes automated exposure control, adjustments of mA and kV according to patient size. Iterative reconstructions are also sometimes employed. FINDINGS: In the head of the pancreas there is a hypodense hypoenhancing mass (portal venous phaseaxial image 43, coronal image 31) measuring 3.2 [...] effect of a dilated cystic duct remnant. Thecentral intrahepatic ducts are mildly dilated measuring 7 mm. Main pancreatic duct is also dilated measuring 7 mm in diameter. No pancreatic gland atrophy. The pancreatic mass is in contact with the right posterolateral wall of the superior mesenteric vein involving approximately 120 degrees over 1 cmsegment. There is a tributary that drains into [...] osteopenia and chronic T12 compression fracture. Signed: Seth Pineda MDReport VerifiedDate/Time: 02/06/2018 10:37:24 Reading Location: [facility] [id number] Ortho Consult Reading Room [id number] 06:11:00 Test Item Value Reference Range Comments MAGNESIUM (BEAKER) (test fvus=853) 1.7 mg/dL 1.6-2.6 BASIC METABOLIC [id number] 06:11:00 Test Item Value Reference Range Comments SODIUM (BEAKER) (test 142 meq/L 136-145 dwfd=811) POTASSIUM (BEAKER) (test 3.2 meq/L 3.5-5.1 vmet=636) CHLORIDE (BEAKER) (test 111 meq/L 98-107 vtdk=872) CO2 (BEAKER) (test 23 meq/L 22-29 rwnj=211) BLOOD UREA NITROGEN 7 mg/dL 7-21 (BEAKER) (test xgty=722) CREATININE (BEAKER) (test 0.62 mg/dL 0.57-1.25 ywwj=192) GLUCOSE RANDOM (BEAKER) 80 mg/dL 70-105 (test ytzm=671) CALCIUM (BEAKER) (test 8.7 mg/dL 8.4-10.2 eynu=399) EGFR (BEAKER) (test 93 mL/min/1.73 sq m ESTIMATED GFR IS NOT dbhr=1260) ACCURATE CREATININE CLEARANCE IN PREDICTING GLOMERULAR FILTRATION RATE. ESTIMATED GFR IS NOT APPLICABLE FOR DIALYSIS PATIENTS. Specimen moderately ictericHEPATIC FUNCTION [id number] 06:11:00 Test Item Value Reference Range Comments TOTAL PROTEIN (BEAKER) (test fxnd=003) 5.1 gm/dL 6.0-8.3 ALBUMIN (BEAKER) (test usze=1668) 2.7 g/dL 3.5-5.0 BILIRUBIN TOTAL (BEAKER) (test jijs=190) 5.5 mg/dL 0.2-1.2 BILIRUBIN DIRECT (BEAKER) (test nfpo=053) 3.5 mg/dL 0.1-0.5 ALKALINE PHOSPHATASE (BEAKER) (test oeir=478) 597 U/L 40-150 AST (SGOT) (BEAKER) (test rqmk=973) 54 U/L 5-34 ALT (SGPT) (BEAKER) (test pehc=377) 108 U/L 6-55 Specimen moderately ictericCBC W/PLT COUNT & AUTO [id number] 06: 03:00 Test Item Value Reference Range Comments WHITE BLOOD CELL COUNT (BEAKER) (test gpye=083) 8.1 K/ L 3.5-10.5 RED BLOOD CELL COUNT (BEAKER) (test xwem=393) 2.82 M/ L 3.93-5.22 HEMOGLOBIN (BEAKER) (test zyzp=423) 8.9 GM/DL 11.2-15.7 HEMATOCRIT (BEAKER) (test rwnp=110) 27.9 % 34.1-44.9 MEAN CORPUSCULAR VOLUME (BEAKER) (test eacy=775) 98.9 fL 79.4-94.8 MEAN CORPUSCULAR HEMOGLOBIN (BEAKER) (test 31.6 pg 25.6-32.2 sgew=370) MEAN CORPUSCULAR HEMOGLOBIN CONC (BEAKER) (test 31.9 GM/DL 32.2-35.5 akfv=888) RED CELL DISTRIBUTION WIDTH (BEAKER) (test 15.7 % 11.7-14.4 ufbl=227) PLATELET COUNT (BEAKER) (test pynn=518) 222 K/CU MM 150-450 MEAN PLATELET VOLUME (BEAKER) (test lxtb=661) 10.2 fL 9.4-12.3 NUCLEATED RED BLOOD CELLS (BEAKER) (test 0 /100 WBC 0-0 qygd=561) NEUTROPHILS RELATIVE PERCENT (BEAKER) (test 64 % elli=132) LYMPHOCYTES RELATIVE PERCENT (BEAKER) (test 19 % omva=328) MONOCYTES RELATIVE PERCENT (BEAKER) (test 8 % hulx=502) EOSINOPHILS RELATIVE PERCENT (BEAKER) (test 3 % oemo=183) BASOPHILS RELATIVE PERCENT (BEAKER) (test 1 % lxqr=583) NEUTROPHILS ABSOLUTE COUNT (BEAKER) (test 5.17 K/ L 1.56-6.13 zkrn=804) LYMPHOCYTES ABSOLUTE COUNT (BEAKER) (test 1.56 K/ L 1.18-3.74 kjfb=841) MONOCYTES ABSOLUTE COUNT (BEAKER) (test 0.63 K/ L 0.24-0.36 cmhx=438) EOSINOPHILS ABSOLUTE COUNT (BEAKER) (test 0.24 K/ L 0.04-0.36 yklb=379) BASOPHILS ABSOLUTE COUNT (BEAKER) (test 0.06 K/ L 0.01-0.08 vqrv=395) IMMATURE GRANULOCYTES-RELATIVE PERCENT (BEAKER) 5 % 0-1 (test mfyx=3278) CYTOLOGY [id number] 13:00:00 Test Item Value Reference Range Comments CYTOLOGY RESULT POINTER (BEAKER) (test See Separate Report zaok=4605) FINE NEEDLE ASPIRATE (FNA) [id number] 13:00:00 Test Item Value Reference Range Comments CYTOLOGY RESULT POINTER (BEAKER) (test See Separate Report dotc=9579) [id number] 07:38:00 Test Item Value Reference Range Comments MAGNESIUM (BEAKER) (test hdpc=610) 1.9 mg/dL 1.6-2.6 BASIC METABOLIC [id number] 07:38:00 Test Item Value Reference Range Comments SODIUM (BEAKER) (test 140 meq/L 136-145 jfan=559) POTASSIUM (BEAKER) (test 3.5 meq/L 3.5-5.1 ayeq=189) CHLORIDE (BEAKER) (test 110 meq/L 98-107 msfe=257) CO2 (BEAKER) (test 22 meq/L 22-29 kaab=472) BLOOD UREA NITROGEN 8 mg/dL 7-21 (BEAKER) (test ytgl=164) CREATININE (BEAKER) (test 0.66 mg/dL 0.57-1.25 qqlp=124) GLUCOSE RANDOM (BEAKER) 84 mg/dL 70-105 (test sdfo=066) CALCIUM (BEAKER) (test 9.1 mg/dL 8.4-10.2 txnv=502) EGFR (BEAKER) (test 87 mL/min/1.73 sq m ESTIMATED GFR IS NOT vkwm=7068) ACCURATE CREATININE CLEARANCE IN PREDICTING GLOMERULAR FILTRATION RATE. ESTIMATED GFR IS NOT APPLICABLE FOR DIALYSIS PATIENTS. Specimen moderately ictericHEPATIC FUNCTION [id number] 07:38:00 Test Item Value Reference Range Comments TOTAL PROTEIN (BEAKER) (test kfsh=885) 6.0 gm/dL 6.0-8.3 ALBUMIN (BEAKER) (test teqb=6642) 3.2 g/dL 3.5-5.0 BILIRUBIN TOTAL (BEAKER) (test iwrv=404) 7.3 mg/dL 0.2-1.2 BILIRUBIN DIRECT (BEAKER) (test qrdn=969) 4.6 mg/dL 0.1-0.5 ALKALINE PHOSPHATASE (BEAKER) (test cbcp=704) 838 U/L 40-150 AST (SGOT) (BEAKER) (test veow=311) 89 U/L 5-34 ALT (SGPT) (BEAKER) (test rlfk=456) 161 U/L 6-55 Specimen moderately ictericCBC W/PLT COUNT & AUTO [id number] 06: 59:00 Test Item Value Reference Range Comments WHITE BLOOD CELL COUNT (BEAKER) (test hggn=643) 10.8 K/ L 3.5-10.5 RED BLOOD CELL COUNT (BEAKER) (test mhxf=187) 3.21 M/ L 3.93-5.22 HEMOGLOBIN (BEAKER) (test frme=772) 10.3 GM/DL 11.2-15.7 HEMATOCRIT (BEAKER) (test mwzx=717) 31.3 % 34.1-44.9 MEAN CORPUSCULAR VOLUME (BEAKER) (test jbcf=105) 97.5 fL 79.4-94.8 MEAN CORPUSCULAR HEMOGLOBIN (BEAKER) (test 32.1 pg 25.6-32.2 ilnm=156) MEAN CORPUSCULAR HEMOGLOBIN CONC (BEAKER) (test 32.9 GM/DL 32.2-35.5 dgek=932) RED CELL DISTRIBUTION WIDTH (BEAKER) (test 16.7 % 11.7-14.4 sijp=929) PLATELET COUNT (BEAKER) (test hcxk=673) 245 K/CU MM 150-450 MEAN PLATELET VOLUME (BEAKER) (test drra=441) 10.5 fL 9.4-12.3 NUCLEATED RED BLOOD CELLS (BEAKER) (test 0 /100 WBC 0-0 esbc=565) NEUTROPHILS RELATIVE PERCENT (BEAKER) (test 65 % bwkh=515) LYMPHOCYTES RELATIVE PERCENT (BEAKER) (test 20 % xfry=133) MONOCYTES RELATIVE PERCENT (BEAKER) (test 7 % sxqc=866) EOSINOPHILS RELATIVE PERCENT (BEAKER) (test 2 % ibvh=709) BASOPHILS RELATIVE PERCENT (BEAKER) (test 1 % mlti=228) NEUTROPHILS ABSOLUTE COUNT (BEAKER) (test 7.01 K/ L 1.56-6.13 qmtq=670) LYMPHOCYTES ABSOLUTE COUNT (BEAKER) (test 2.15 K/ L 1.18-3.74 jqnh=528) MONOCYTES ABSOLUTE COUNT (BEAKER) (test 0.71 K/ L 0.24-0.36 gkjk=042) EOSINOPHILS ABSOLUTE COUNT (BEAKER) (test 0.26 K/ L 0.04-0.36 ozja=441) BASOPHILS ABSOLUTE COUNT (BEAKER) (test 0.08 K/ L 0.01-0.08 zipb=059) IMMATURE GRANULOCYTES-RELATIVE PERCENT (BEAKER) 5 % 0-1 (test gxuw=0838) URINE [id number] 06:20:00 Test Item Value Reference Range Comments CULTURE (BEAKER) (test tvxa=6026) No growth [id number] 05:46:00 Test Item Value Reference Range Comments MAGNESIUM (BEAKER) (test dzly=070) 2.2 mg/dL 1.6-2.6 BASIC METABOLIC [id number] 05:46:00 Test Item Value Reference Range Comments SODIUM (BEAKER) (test 143 meq/L 136-145 jznn=688) POTASSIUM (BEAKER) (test 3.9 meq/L 3.5-5.1 uzxj=809) CHLORIDE (BEAKER) (test 112 meq/L 98-107 kspt=732) CO2 (BEAKER) (test 22 meq/L 22-29 pdfb=973) BLOOD UREA NITROGEN 13 mg/dL 7-21 (BEAKER) (test tfud=354) CREATININE (BEAKER) (test 0.79 mg/dL 0.57-1.25 wgsh=728) GLUCOSE RANDOM (BEAKER) 106 mg/dL 70-105 (test vdhy=340) CALCIUM (BEAKER) (test 8.6 mg/dL 8.4-10.2 yofq=946) EGFR (BEAKER) (test 71 mL/min/1.73 sq m ESTIMATED GFR IS NOT zvvv=9938) ACCURATE CREATININE CLEARANCE IN PREDICTING GLOMERULAR FILTRATION RATE. ESTIMATED GFR IS NOT APPLICABLE FOR DIALYSIS PATIENTS. Specimen moderately ictericHEPATIC FUNCTION [id number] 05:46:00 Test Item Value Reference Range Comments TOTAL PROTEIN (BEAKER) (test gjtj=300) 5.4 gm/dL 6.0-8.3 ALBUMIN (BEAKER) (test bfqb=6509) 3.0 g/dL 3.5-5.0 BILIRUBIN TOTAL (BEAKER) (test ovnz=655) 9.2 mg/dL 0.2-1.2 BILIRUBIN DIRECT (BEAKER) (test cbmf=374) 6.0 mg/dL 0.1-0.5 ALKALINE PHOSPHATASE (BEAKER) (test qhcy=328) 932 U/L 40-150 AST (SGOT) (BEAKER) (test bsux=970) 189 U/L 5-34 ALT (SGPT) (BEAKER) (test ptei=542) 213 U/L 6-55 Specimen moderately ictericCBC W/PLT COUNT & AUTO [id number] 04: 26:00 Test Item Value Reference Range Comments WHITE BLOOD CELL COUNT (BEAKER) (test xdka=257) 9.9 K/ L 3.5-10.5 RED BLOOD CELL COUNT (BEAKER) (test oolh=834) 3.06 M/ L 3.93-5.22 HEMOGLOBIN (BEAKER) (test mbvi=027) 9.9 GM/DL 11.2-15.7 HEMATOCRIT (BEAKER) (test egpu=005) 29.2 % 34.1-44.9 MEAN CORPUSCULAR VOLUME (BEAKER) (test uulk=108) 95.4 fL 79.4-94.8 MEAN CORPUSCULAR HEMOGLOBIN (BEAKER) (test 32.4 pg 25.6-32.2 qtck=424) MEAN CORPUSCULAR HEMOGLOBIN CONC (BEAKER) (test 33.9 GM/DL 32.2-35.5 fjmf=562) RED CELL DISTRIBUTION WIDTH (BEAKER) (test 17.6 % 11.7-14.4 myot=311) PLATELET COUNT (BEAKER) (test sgtr=698) 232 K/CU MM 150-450 MEAN PLATELET VOLUME (BEAKER) (test qbno=026) 10.8 fL 9.4-12.3 NUCLEATED RED BLOOD CELLS (BEAKER) (test 0 /100 WBC 0-0 toay=843) NEUTROPHILS RELATIVE PERCENT (BEAKER) (test 71 % qpjx=231) LYMPHOCYTES RELATIVE PERCENT (BEAKER) (test 14 % rsuu=796) MONOCYTES RELATIVE PERCENT (BEAKER) (test 8 % unil=358) EOSINOPHILS RELATIVE PERCENT (BEAKER) (test 2 % wjoq=218) BASOPHILS RELATIVE PERCENT (BEAKER) (test 1 % iong=556) NEUTROPHILS ABSOLUTE COUNT (BEAKER) (test 6.98 K/ L 1.56-6.13 ndsh=971) LYMPHOCYTES ABSOLUTE COUNT (BEAKER) (test 1.41 K/ L 1.18-3.74 socf=512) MONOCYTES ABSOLUTE COUNT (BEAKER) (test 0.78 K/ L 0.24-0.36 bvnf=858) EOSINOPHILS ABSOLUTE COUNT (BEAKER) (test 0.16 K/ L 0.04-0.36 nkwf=201) BASOPHILS ABSOLUTE COUNT (BEAKER) (test 0.07 K/ L 0.01-0.08 loza=691) IMMATURE GRANULOCYTES-RELATIVE PERCENT (BEAKER) 5 % 0-1 (test nnah=1775) FL, [id number] 13:28:00Reason for exam:->jaundiceFINAL REPORT ERCP, 02/03/2018 Clinical History: Jaundice Impression: Intraoperative images are obtained. The radiologist is not present during the procedure. Fluoroscopy was notperformed by the undersigned. Images are presented for interpretation at the completion of the procedure. Please refer to the procedure report for more details. 19 images minimal with fluoroscopy time of 123 seconds demonstrating interrogation of a dilated common duct with stent placement. Signed: Dayne Dietrich MDReport Verified Date/Time: 2017 13:28:45 Reading Location: [address] OrthoConsult Reading Room [id number] 07:11:00 Test Item Value Reference Range Comments MAGNESIUM (BEAKER) (test ykwr=175) 1.7 mg/dL 1.6-2.6 BASIC METABOLIC [id number] 07:11:00 Test Item Value Reference Range Comments SODIUM (BEAKER) (test 142 meq/L 136-145 yyzu=129) POTASSIUM (BEAKER) (test 3.3 meq/L 3.5-5.1 evhe=159) CHLORIDE (BEAKER) (test 110 meq/L 98-107 gycs=569) CO2 (BEAKER) (test 23 meq/L 22-29 qbab=294) BLOOD UREA NITROGEN 22 mg/dL 7-21 (BEAKER) (test htcw=379) CREATININE (BEAKER) (test 1.06 mg/dL 0.57-1.25 pqva=523) GLUCOSE RANDOM (BEAKER) 89 mg/dL 70-105 (test yvku=546) CALCIUM (BEAKER) (test 8.6 mg/dL 8.4-10.2 amgw=707) EGFR (BEAKER) (test 50 mL/min/1.73 sq m ESTIMATED GFR IS NOT duih=6047) ACCURATE CREATININE CLEARANCE IN PREDICTING GLOMERULAR FILTRATION RATE. ESTIMATED GFR IS NOT APPLICABLE FOR DIALYSIS PATIENTS. Specimen markedly ictericHEPATIC FUNCTION [id number] 07:11:00 Test Item Value Reference Range Comments TOTAL PROTEIN (BEAKER) (test khjj=442) 5.4 gm/dL 6.0-8.3 ALBUMIN (BEAKER) (test axit=3827) 3.0 g/dL 3.5-5.0 BILIRUBIN TOTAL (BEAKER) (test ffxf=799) 18.0 mg/dL 0.2-1.2 BILIRUBIN DIRECT (BEAKER) (test agiq=023) 11.9 mg/dL 0.1-0.5 ALKALINE PHOSPHATASE (BEAKER) (test uyva=507) 1031 U/L 40-150 AST (SGOT) (BEAKER) (test ycgs=419) 306 U/L 5-34 ALT (SGPT) (BEAKER) (test lqck=790) 246 U/L 6-55 Specimen markedly [id number] 07:11:00 Test Item Value Reference Range Comments AMYLASE (BEAKER) (test whzf=697) 202 U/L 25-125 Specimen markedly [id number] 07:11:00 Test Item Value Reference Range Comments LIPASE (BEAKER) (test jbma=180) 489 U/L 8-78 Specimen markedly ictericCBC W/PLT COUNT & AUTO [id number] 06:42 :00 Test Item Value Reference Range Comments WHITE BLOOD CELL COUNT (BEAKER) (test ykfc=647) 8.1 K/ L 3.5-10.5 RED BLOOD CELL COUNT (BEAKER) (test ycno=705) 3.19 M/ L 3.93-5.22 HEMOGLOBIN (BEAKER) (test pjhw=204) 10.2 GM/DL 11.2-15.7 HEMATOCRIT (BEAKER) (test lmsk=239) 30.2 % 34.1-44.9 MEAN CORPUSCULAR VOLUME (BEAKER) (test pgiz=900) 94.7 fL 79.4-94.8 MEAN CORPUSCULAR HEMOGLOBIN (BEAKER) (test 32.0 pg 25.6-32.2 hcir=539) MEAN CORPUSCULAR HEMOGLOBIN CONC (BEAKER) (test 33.8 GM/DL 32.2-35.5 jlvx=044) RED CELL DISTRIBUTION WIDTH (BEAKER) (test 17.0 % 11.7-14.4 lsgx=443) PLATELET COUNT (BEAKER) (test tfsl=276) 222 K/CU MM 150-450 MEAN PLATELET VOLUME (BEAKER) (test lvjc=302) 11.0 fL 9.4-12.3 NUCLEATED RED BLOOD CELLS (BEAKER) (test 0 /100 WBC 0-0 ceye=704) NEUTROPHILS RELATIVE PERCENT (BEAKER) (test 70 % jhmj=738) LYMPHOCYTES RELATIVE PERCENT (BEAKER) (test 14 % zpyd=008) MONOCYTES RELATIVE PERCENT (BEAKER) (test 8 % wjkw=768) EOSINOPHILS RELATIVE PERCENT (BEAKER) (test 2 % wstv=452) BASOPHILS RELATIVE PERCENT (BEAKER) (test 1 % yayr=472) NEUTROPHILS ABSOLUTE COUNT (BEAKER) (test 5.69 K/ L 1.56-6.13 gyov=018) LYMPHOCYTES ABSOLUTE COUNT (BEAKER) (test 1.13 K/ L 1.18-3.74 hfmw=977) MONOCYTES ABSOLUTE COUNT (BEAKER) (test 0.67 K/ L 0.24-0.36 ojww=865) EOSINOPHILS ABSOLUTE COUNT (BEAKER) (test 0.17 K/ L 0.04-0.36 znaw=344) BASOPHILS ABSOLUTE COUNT (BEAKER) (test 0.05 K/ L 0.01-0.08 gycc=937) IMMATURE GRANULOCYTES-RELATIVE PERCENT (BEAKER) 5 % 0-1 (test devp=4668) URINALYSIS W/ [id number] 20:08:00 Test Item Value Reference Range Comments COLOR (BEAKER) (test ijzg=846) Dark Yellow CLARITY (BEAKER) (test ilsy=924) Hazy SPECIFIC GRAVITY UA (BEAKER) (test 1.014 1.001-1.035 uzxe=595) PH UA (BEAKER) (test hkyg=046) 5.5 5.0-8.0 PROTEIN UA (BEAKER) (test tlzd=008) 20 mg/dL Negative GLUCOSE UA (BEAKER) (test nshz=967) Negative Negative KETONES UA (BEAKER) (test nivw=088) Negative Negative BILIRUBIN UA (BEAKER) (test gexj=538) Positive Negative BLOOD UA (BEAKER) (test vqek=332) Trace Negative NITRITE UA (BEAKER) (test zazs=354) Negative Negative LEUKOCYTE ESTERASE UA (BEAKER) (test Large Negative hszw=781) UROBILINOGEN UA (BEAKER) (test wtnz=678) 0.2 mg/dL 0.2-1.0 RBC UA (BEAKER) (test cwwr=509) 0 /HPF WBC UA (BEAKER) (test rqhm=175) > /HPF SQUAMOUS EPITHELIAL (BEAKER) (test 7 /HPF xjdi=781) SOURCE(BEAKER) (test xzip=4674) Urine, Clean Catch [id number] 07:14:00 Test Item Value Reference Range Comments MAGNESIUM (BEAKER) (test lykb=563) 1.8 mg/dL 1.6-2.6 BASIC METABOLIC [id number] 07:14:00 Test Item Value Reference Range Comments SODIUM (BEAKER) (test 141 meq/L 136-145 zskb=588) POTASSIUM (BEAKER) (test 3.6 meq/L 3.5-5.1 iyha=710) CHLORIDE (BEAKER) (test 104 meq/L 98-107 dhee=972) CO2 (BEAKER) (test 21 meq/L 22-29 csxv=236) BLOOD UREA NITROGEN 31 mg/dL 7-21 (BEAKER) (test dtvx=047) CREATININE (BEAKER) (test 1.57 mg/dL 0.57-1.25 nslf=796) GLUCOSE RANDOM (BEAKER) 74 mg/dL 70-105 (test adxo=961) CALCIUM (BEAKER) (test 9.0 mg/dL 8.4-10.2 itor=530) EGFR (BEAKER) (test 32 mL/min/1.73 sq m ESTIMATED GFR IS NOT lwle=4173) ACCURATE CREATININE CLEARANCE IN PREDICTING GLOMERULAR FILTRATION RATE. ESTIMATED GFR IS NOT APPLICABLE FOR DIALYSIS PATIENTS. Specimen markedly ictericHEPATIC FUNCTION [id number] 07:14:00 Test Item Value Reference Range Comments TOTAL PROTEIN (BEAKER) (test qahr=577) 6.2 gm/dL 6.0-8.3 ALBUMIN (BEAKER) (test glou=8280) 3.4 g/dL 3.5-5.0 BILIRUBIN TOTAL (BEAKER) (test letf=889) 19.3 mg/dL 0.2-1.2 BILIRUBIN DIRECT (BEAKER) (test fttl=417) 13.2 mg/dL 0.1-0.5 ALKALINE PHOSPHATASE (BEAKER) (test mpyv=930) 1182 U/L 40-150 AST (SGOT) (BEAKER) (test xwzc=921) 314 U/L 5-34 ALT (SGPT) (BEAKER) (test xirq=928) 301 U/L 6-55 Specimen markedly ictericCBC W/PLT COUNT & AUTO [id number] 06:43 :00 Test Item Value Reference Range Comments WHITE BLOOD CELL COUNT (BEAKER) (test jljj=763) 11.0 K/ L 3.5-10.5 RED BLOOD CELL COUNT (BEAKER) (test ktag=203) 3.71 M/ L 3.93-5.22 HEMOGLOBIN (BEAKER) (test ulhs=602) 11.9 GM/DL 11.2-15.7 HEMATOCRIT (BEAKER) (test tsqy=364) 35.2 % 34.1-44.9 MEAN CORPUSCULAR VOLUME (BEAKER) (test kvhq=962) 94.9 fL 79.4-94.8 MEAN CORPUSCULAR HEMOGLOBIN (BEAKER) (test 32.1 pg 25.6-32.2 hapr=324) MEAN CORPUSCULAR HEMOGLOBIN CONC (BEAKER) (test 33.8 GM/DL 32.2-35.5 adpv=890) RED CELL DISTRIBUTION WIDTH (BEAKER) (test 16.4 % 11.7-14.4 xnsf=137) PLATELET COUNT (BEAKER) (test mjmu=443) 270 K/CU MM 150-450 MEAN PLATELET VOLUME (BEAKER) (test mqka=871) 10.6 fL 9.4-12.3 NUCLEATED RED BLOOD CELLS (BEAKER) (test 0 /100 WBC 0-0 vfvc=537) NEUTROPHILS RELATIVE PERCENT (BEAKER) (test 68 % mikt=504) LYMPHOCYTES RELATIVE PERCENT (BEAKER) (test 18 % dhtu=770) MONOCYTES RELATIVE PERCENT (BEAKER) (test 8 % dwdl=538) EOSINOPHILS RELATIVE PERCENT (BEAKER) (test 1 % yede=896) BASOPHILS RELATIVE PERCENT (BEAKER) (test 1 % rswk=078) NEUTROPHILS ABSOLUTE COUNT (BEAKER) (test 7.50 K/ L 1.56-6.13 sivj=700) LYMPHOCYTES ABSOLUTE COUNT (BEAKER) (test 1.94 K/ L 1.18-3.74 fljw=083) MONOCYTES ABSOLUTE COUNT (BEAKER) (test 0.87 K/ L 0.24-0.36 gmdh=846) EOSINOPHILS ABSOLUTE COUNT (BEAKER) (test 0.15 K/ L 0.04-0.36 asgm=551) BASOPHILS ABSOLUTE COUNT (BEAKER) (test 0.09 K/ L 0.01-0.08 gfyj=501) IMMATURE GRANULOCYTES-RELATIVE PERCENT (BEAKER) 4 % 0-1 (test nwrr=3481) BASIC METABOLIC [id number] 16:47:00 Test Item Value Reference Range Comments SODIUM (BEAKER) (test 140 meq/L 136-145 vozs=943) POTASSIUM (BEAKER) (test 3.4 meq/L 3.5-5.1 zxgt=454) CHLORIDE (BEAKER) (test 97 meq/L 98-107 pwmw=626) CO2 (BEAKER) (test 28 meq/L 22-29 muae=697) BLOOD UREA NITROGEN 32 mg/dL 7-21 (BEAKER) (test xiud=726) CREATININE (BEAKER) (test 2.08 mg/dL 0.57-1.25 atxk=307) GLUCOSE RANDOM (BEAKER) 92 mg/dL 70-105 (test jjgl=267) CALCIUM (BEAKER) (test 10.1 mg/dL 8.4-10.2 edps=552) EGFR (BEAKER) (test 23 mL/min/1.73 sq m ESTIMATED GFR IS NOT ycom=7504) ACCURATE CREATININE CLEARANCE IN PREDICTING GLOMERULAR FILTRATION RATE. ESTIMATED GFR IS NOT APPLICABLE FOR DIALYSIS PATIENTS. Specimen markedly [id number] 16:44:00 Test Item Value Reference Range Comments AMYLASE (BEAKER) (test enht=117) 186 U/L 25-125 Specimen markedly ictericHEPATIC FUNCTION [id number] 16:44:00 Test Item Value Reference Range Comments TOTAL PROTEIN (BEAKER) (test jlsn=826) 7.4 gm/dL 6.0-8.3 ALBUMIN (BEAKER) (test yyjx=4496) 4.0 g/dL 3.5-5.0 BILIRUBIN TOTAL (BEAKER) (test mzlt=036) 20.0 mg/dL 0.2-1.2 BILIRUBIN DIRECT (BEAKER) (test pubs=643) 13.9 mg/dL 0.1-0.5 ALKALINE PHOSPHATASE (BEAKER) (test zcja=627) 1372 U/L 40-150 AST (SGOT) (BEAKER) (test bruk=584) 377 U/L 5-34 ALT (SGPT) (BEAKER) (test afrq=129) 433 U/L 6-55 Specimen markedly [id number] 16:44:00 Test Item Value Reference Range Comments LIPASE (BEAKER) (test phal=995) 316 U/L 8-78 Specimen markedly ictericPT/[id number] 16:30:00 Test Item Value Reference Range Comments PROTIME (BEAKER) (test dxaw=374) 14.1 seconds 11.7-14.7 INR (BEAKER) (test fnxx=367) 1.1 <=5.9 PARTIAL THROMBOPLASTIN TIME (BEAKER) (test 27.4 seconds 22.5-36.0 ecoo=248) RECOMMENDED COUMADIN/WARFARIN INR THERAPY RANGESSTANDARD DOSE: 2.0 - 3.0 Includes: PROPHYLAXIS forvenous thrombosis, systemic embolization; TREATMENT for venous thrombosis and/or pulmonary embolus.HIGH RISK: Target INR is 2.5-3.5 for patients with mechanical heart valves.CBC W/PLT COUNT & AUTO [id number] 16:24:00 Test Item Value Reference Range Comments WHITE BLOOD CELL COUNT (BEAKER) (test olhi=903) 14.1 K/ L 3.5-10.5 RED BLOOD CELL COUNT (BEAKER) (test gxsg=090) 4.23 M/ L 3.93-5.22 HEMOGLOBIN (BEAKER) (test lsxn=474) 13.4 GM/DL 11.2-15.7 HEMATOCRIT (BEAKER) (test zvra=861) 39.8 % 34.1-44.9 MEAN CORPUSCULAR VOLUME (BEAKER) (test vuje=003) 94.1 fL 79.4-94.8 MEAN CORPUSCULAR HEMOGLOBIN (BEAKER) (test 31.7 pg 25.6-32.2 osrw=728) MEAN CORPUSCULAR HEMOGLOBIN CONC (BEAKER) (test 33.7 GM/DL 32.2-35.5 fook=399) RED CELL DISTRIBUTION WIDTH (BEAKER) (test 16.2 % 11.7-14.4 xwsk=675) PLATELET COUNT (BEAKER) (test rsxp=341) 352 K/CU MM 150-450 MEAN PLATELET VOLUME (BEAKER) (test mcoi=664) 10.6 fL 9.4-12.3 NUCLEATED RED BLOOD CELLS (BEAKER) (test 0 /100 WBC 0-0 jrzg=937) NEUTROPHILS RELATIVE PERCENT (BEAKER) (test 75 % cvkl=621) LYMPHOCYTES RELATIVE PERCENT (BEAKER) (test 13 % hgri=858) MONOCYTES RELATIVE PERCENT (BEAKER) (test 8 % fryf=200) EOSINOPHILS RELATIVE PERCENT (BEAKER) (test 1 % cjzy=106) BASOPHILS RELATIVE PERCENT (BEAKER) (test 1 % sblx=629) NEUTROPHILS ABSOLUTE COUNT (BEAKER) (test 10.52 K/ L 1.56-6.13 edqm=029) LYMPHOCYTES ABSOLUTE COUNT (BEAKER) (test 1.86 K/ L 1.18-3.74 wyyl=946) MONOCYTES ABSOLUTE COUNT (BEAKER) (test 1.06 K/ L 0.24-0.36 affz=960) EOSINOPHILS ABSOLUTE COUNT (BEAKER) (test 0.11 K/ L 0.04-0.36 yvez=042) BASOPHILS ABSOLUTE COUNT (BEAKER) (test 0.09 K/ L 0.01-0.08 qeru=402) IMMATURE GRANULOCYTES-RELATIVE PERCENT (BEAKER) 3 % 0-1 (test [id number])
[2018-02-28 17:59] LABS: Urine Blood NEGATIVE (NEG); Urine Glucose NEGATIVE (NEG); Urine Protein NEGATIVE (NEG); Urine pH 6.5 (5.0-7.0)
[2018-02-28 18:08] LABS: Absolute Lymphocytes (CBC) 1.2 K/uL (0.7-4.9); Absolute Monocytes 1.3 K/uL (0.1-1.3); Absolute Neutrophil 6.3 K/uL (1.8-8.0); Basophils % 0.7 % (0-1.3); Eosinophils % 1.2 % (0-4.4); Hematocrit 33.5 % (36.0-45.0); Lymphocytes % 13.1 % (15.3-44.8); MCH 32.7 pg (27.0-35.0); MPV 7.5 fL (7.6-11.3); Monocytes % 14.3 % (3.3-12.3); Protime INR 1.13; RBC Red Blood Cell Count 3.57 M/uL (3.86-4.86)
[2018-02-28 18:23] LABS: Phosphorus 3.6 mg/dL (2.5-4.9); Troponin (Emerg Dept Use Only) 0.02 ng/mL (0.0-0.045)
[2018-02-28 18:31] LABS: Albumin 3.3 g/dL (3.4-5.0); Bilirubin Direct 1.4 mg/dL (0-0.2); Bilirubin Total 2.2 mg/dL (0.2-1.0); Magnesium 1.6 mg/dL (1.8-2.4); Protein, Total 6.9 g/dL (6.4-8.2)
[2018-02-28 18:33] LABS: Potassium 2.3 mmol/L (3.5-5.1)
--- NOTE | 2018-02-28 18:51 | RAD REPORT ---
EXAM DESCRIPTION: RAD - Chest Single View - 02/28/2018 6:18 pm CLINICAL HISTORY: COUGH Chest pain. COMPARISON: No comparisons FINDINGS: Portable technique limits examination quality. The lungs are grossly clear. The heart is normal in size. No displaced fractures.Aortic atheroscleros is. IMPRESSION: No acute intrathoracic process suspected.
[2018-02-28] MEDS ORDERED: NS KCL 20MEQ 1,000 ML IV ONE (18:57)
--- NOTE | 2018-02-28 19:02 | ER ---
Nurse's Notes [facility] Name: Elena Mir Age: 77 yrs Sex: Female : 1940 Arrival Date: 02/28/2018 Time: 16:49 Bed 25 Private MD: Diagnosis: Abdominal tenderness;Weakness;Hypokalemia;Hypomagnesemia Presentation: 02/28 17:11 Presenting complaint: Child states: She had a whipple surgery 2 weeks ago for aj1 pancreatic cancer, she had labs done for her oncologist, Dr. Mcmillan, today and they told her that her potassium was low and to come to the emergency room. Transition of care: patient was not received from another setting of care. Onset of symptoms was February 28, 2018. Risk Assessment: Do you want to hurt yourself or someone else? Patient reports no desire to harm self or others. Initial Sepsis Screen: Does the patient meet any 2 criteria? No. Patient's initial sepsis screen is negative. Does the patient have a suspected source of infection? No. Patient's initial sepsis screen is negative. Care prior to arrival: None. 17:11 Method Of Arrival: Ambulatory [facility] 17:11 Acuity: FR[place] 2 aj1 Triage Assessment: 17:13 General: Appears in no apparent distress. comfortable, Behavior is calm, cooperative, aj1 appropriate for age. Pain: Denies pain. Neuro: Level of Consciousness is awake, alert, obeys commands. Cardiovascular: Patient's skin is warm and dry. Respiratory: Airway is patent Respiratory effort is even, unlabored, Respiratory pattern is regular, symmetrical. Historical: - Allergies: 17:13 No Known Allergies; aj1 - PMHx: 17:13 pancreatic cancer; Hypertension; Hyperlipidemia; Hypothyroidism; aj1 - PSHx: 17:13 whipple 2 weeks ago; aj1 - Immunization history:: Flu vaccine is up to date. - Social history:: Smoking status: Patient/guardian denies using tobacco. - Ebola Screening: : Patient denies travel to an Ebola-affected area in the 21 days before illness onset. Screenin:59 Abuse screen: Denies threats or abuse. Denies injuries from another. Nutritional kr2 screening: No deficits noted. Tuberculosis screening: No symptoms or risk factors identified. Fall Risk None identified. Assessment: 17:30 General: Appears in no apparent distress. comfortable, well groomed, well developed, kr2 well nourished, Behavior is calm, cooperative, appropriate for age. Pain: Denies pain. Neuro: Level of Consciousness is awake, alert, obeys commands, Oriented to person, place, time, situation, Appropriate for age. Cardiovascular: Capillary refill < 3 seconds in bilateral fingers Patient's skin is warm and dry. Respiratory: Airway is patent Respiratory effort is even, unlabored, Respiratory pattern is regular, symmetrical. GI: Abdomen is flat, non-distended, Bowel sounds present X 4 quads. : Denies burning with urination. EENT: Oral mucosa is moist. Derm: Skin is fragile, Wound noted right upper quadrant Wound is a surgical incision, well approximated, steri strips in place, no s/sx of infection. Musculoskeletal: Circulation, motion, and sensation intact. 18:27 Reassessment: Patient appears in no apparent distress at this time. Patient and/or kr2 family updated on plan of care and expected duration. Pain level reassessed. Patient is alert, oriented x 3, equal unlabored respirations, skin warm/dry/pink. Patient denies pain at this time. 18:55 Reassessment: Patient appears in no apparent distress at this time. Patient and/or kr2 family updated on plan of care and expected duration. Pain level reassessed. Patient is alert, oriented x 3, equal unlabored respirations, skin warm/dry/pink. Patient denies pain at this time. 20:37 Reassessment: Patient appears in no apparent distress at this time. Patient and/or kr2 family updated on plan of care and expected duration. Pain level reassessed. Patient is alert, oriented x 3, equal unlabored respirations, skin warm/dry/pink. Patient denies pain at this time. Vital Signs: 17:13 BP 97 / 58; Pulse 86; Resp 20; Temp 97.0; Pulse Ox 97% on R/A; Weight 53.52 kg; Height aj1 5 ft. 4 in. (162.56 cm) (R); Pain 0/10; 18:55 BP 114 / 57; Pulse 79; Resp 20; Pulse Ox 97% on R/A; kr2 20:00 BP 111 / 60; Pulse 79; Resp 19; Pulse Ox 98% on R/A; kr2 21:16 BP 108 / 64; Pulse 88; Resp 19; Pulse Ox 97% on R/A; kr2 17:13 Body Mass Index 20.25 (53.52 kg, 162.56 cm) aj1 ED Course: 16:49 Patient arrived in ED. mr 17:12 Triage completed. aj1 17:13 Arm band placed on Patient placed in an exam room. aj1 17:22 Kartik Woodson MD is Attending Physician. [facility] 17:50 Inserted saline lock: 22 gauge in right antecubital area, using aseptic technique. kr2 Blood collected. 17:52 EKG done, by hydroelectric production technician. reviewed by Kartik Woodson MD. sm3 18:00 Patient has correct armband on for positive identification. Bed in low position. Call kr2 light in reach. Side rails up X 1. Adult w/ patient. secured entrance monitor on. Pulse ox on. NIBP on. Door closed. Warm blanket given. Pillow given. Head of bed elevated. 18:09 XRAY Chest (1 view) In Process Unspecified. EDMS 19:00 Sandeep Villareal MD is Hospitalizing Provider. [facility] 20:03 Ami Albert, BINA is Primary Nurse. kr2 21:14 No provider procedures requiring assistance completed. Patient admitted, IV remains in aj1 place. Administered Medications: Discontinued: NS 0.9% 1000 ml IV at 125 ml/hr continuous 18:35 Drug: NS 0.9% 1000 ml Route: IV; Rate: 125 ml/hr; Site: right antecubital; kr2 19:40 Follow up: IV Status: Order to discontinue infusion kr2 18:45 Drug: Potassium Chloride 20 mEq Route: IV; Rate: per protocol; Site: right antecubital; kr2 19:38 Follow up: IV Status: Completed infusion kr2 19:39 Follow up: Response: No adverse reaction kr2 18:54 Drug: Potassium Effervescent Tablet 25 mEq Route: PO; kr2 19:39 Follow up: Response: No adverse reaction kr2 18:55 Drug: NS 0.9% with KCl 20 mEq/L 1000 ml Route: IV; Rate: 125 ml/hr; Site: right kr2 antecubital; 21:13 Follow up: Response: No adverse reaction; IV Status: Infusion continued upon admission aj1 19:00 Drug: NS 0.9% 500 ml Route: IV; Rate: bolus; Site: right antecubital; kr2 20:20 Follow up: Response: No adverse reaction; IV Status: Completed infusion kr2 19:38 Drug: Magnesium Sulfate 1 grams Route: IVPB; Infused Over: 1 hrs; Site: right kr2 antecubital; 20:20 Follow up: Response: No adverse reaction; IV Status: Completed infusion kr2 Outcome: 19:02 Decision to Hospitalize by Provider. [facility] 21:15 Admitted to Tele accompanied by tech, family with patient, via wheelchair, room 409, kr2 with chart, Report called to BINA Moreno 21:15 Condition: stable 21:15 Instructed on the need for admit, Demonstrated understanding of instructions. 21:21 Patient left the ED. kr2 Signatures: Dispatcher [employer] EDCathy Husain RN RN aj1 Kartik Woodson MD MD cha Rivera, Mary mr Reaves, Karey, RN RN kr2 Louise Lucio sm3 Corrections: (The following items were deleted from the chart) 17:14 17:11 Acuity: FRANCE 3 aj1 aj1
--- NOTE | 2018-02-28 19:03 | EDPHYS ---
Physician Documentation [facility] Name: Elena Mir Age: 77 yrs Sex: Female : 1940 Arrival Date: 02/28/2018 Time: 16:49 Bed 25 Private MD: Kartik Muniz HPI: 02/28 18:57 This 77 yrs old Female presents to ER via Ambulatory with complaints of tyler Abnormal Lab Results. 18:57 This 77 yrs old Female presents to ER via Ambulatory with complaints of tyler Abnormal Lab Results. 18:57 The patient presents to the emergency department with nausea. Onset: The tyler symptoms/episode began/occurred 3 day(s) ago. Possible causes: unknown. The symptoms are aggravated by food , The symptoms are alleviated by remaining still. recent whipple surgery. Associated signs and symptoms: Pertinent positives: abdominal pain, nausea. Severity of symptoms: At their worst the symptoms were mild in the emergency department the symptoms are unchanged. The patient has not experienced similar symptoms in the past. Historical: - Allergies: 17:13 No Known Allergies; aj1 - PMHx: 17:13 pancreatic cancer; Hypertension; Hyperlipidemia; Hypothyroidism; aj1 - PSHx: 17:13 whipple 2 weeks ago; aj1 - Immunization history:: Flu vaccine is up to date. - Social history:: Smoking status: Patient/guardian denies using tobacco. - Ebola Screening: : Patient denies travel to an Ebola-affected area in the 21 days before illness onset. ROS: 18:59 Constitutional: Negative for fever, chills, and weight loss, Eyes: Negative for injury, tyler pain, redness, and discharge, ENT: Negative for injury, pain, and discharge, Neck: Negative for injury, pain, and swelling, Cardiovascular: Negative for chest pain, palpitations, and edema, Respiratory: Negative for shortness of breath, cough, wheezing, and pleuritic chest pain, Abdomen/GI: Negative for abdominal pain, nausea, vomiting, diarrhea, and constipation, Back: Negative for injury and pain, : Negative for injury, bleeding, discharge, and swelling, MS/Extremity: Negative for injury and deformity, Skin: Negative for injury, rash, and discoloration, Neuro: Negative for headache, weakness, numbness, tingling, and seizure, Psych: Negative for depression, anxiety, suicide ideation, homicidal ideation, and hallucinations, Allergy/Immunology: Negative for hives, rash, and allergies, Endocrine: Negative for neck swelling, polydipsia, polyuria, polyphagia, and marked weight changes, Hematologic/Lymphatic: Negative for swollen nodes, abnormal bleeding, and unusual bruising. Exam: 18:59 Constitutional: This is a well developed, well nourished patient who is awake, alert, tyler and in no acute distress. Head/Face: Normocephalic, atraumatic. Eyes: Pupils equal round and reactive to light, extra-ocular motions intact. Lids and lashes normal. Conjunctiva and sclera are non-icteric and not injected. Cornea within normal limits. Periorbital areas with no swelling, redness, or edema. ENT: Nares patent. No nasal discharge, no septal abnormalities noted. Tympanic membranes are normal and external auditory canals are clear. Oropharynx with no redness, swelling, or masses, exudates, or evidence of obstruction, uvula midline. Mucous membranes moist. Neck: Trachea midline, no thyromegaly or masses palpated, and no cervical lymphadenopathy. Supple, full range of motion without nuchal rigidity, or vertebral point tenderness. No Meningismus. Chest/axilla: Normal chest wall appearance and motion. Nontender with no deformity. No lesions are appreciated. Cardiovascular: Regular rate and rhythm with a normal S1 and S2. No gallops, murmurs, or rubs. Normal PMI, no JVD. No pulse deficits. Respiratory: Lungs have equal breath sounds bilaterally, clear to auscultation and percussion. No rales, rhonchi or wheezes noted. No increased work of breathing, no retractions or nasal flaring. Back: No spinal tenderness. No costovertebral tenderness. Full range of motion. Female : Normal external genitalia. MS/ Extremity: Pulses equal, no cyanosis. Neurovascular intact. Full, normal range of motion. Neuro: Awake and alert, GCS 15, oriented to person, place, time, and situation. Cranial nerves II-XII grossly intact. Motor strength 5/5 in all extremities. Sensory grossly intact. Cerebellar exam normal. Normal gait. Psych: Awake, alert, with orientation to person, place and time. Behavior, mood, and affect are within normal limits. 18:59 Abdomen/GI: Inspection: abdomen appears normal, Bowel sounds: normal, Palpation: mild abdominal tenderness, in all quadrants, Liver: no appreciated palpable abnormalities, Hernia: not appreciated. Vital Signs: 17:13 BP 97 / 58; Pulse 86; Resp 20; Temp 97.0; Pulse Ox 97% on R/A; Weight 53.52 kg; Height aj1 5 ft. 4 in. (162.56 cm) (R); Pain 0/10; 18:55 BP 114 / 57; Pulse 79; Resp 20; Pulse Ox 97% on R/A; kr2 20:00 BP 111 / 60; Pulse 79; Resp 19; Pulse Ox 98% on R/A; kr2 21:16 BP 108 / 64; Pulse 88; Resp 19; Pulse Ox 97% on R/A; kr2 17:13 Body Mass Index 20.25 (53.52 kg, 162.56 cm) aj1 MDM: 17:22 Patient medically screened. [facility] 19:03 Data reviewed: vital signs, nurses notes, lab test result(s), EKG, radiologic studies, [facility] plain films. 02/28 17:16 Order name: Basic Metabolic Panel; Complete Time: 18:49 snw 02/28 17:16 Order name: CBC with Diff; Complete Time: 18:25 snw 02/28 17:16 Order name: Lipase; Complete Time: 18:49 snw 02/28 17:16 Order name: Magnesium; Complete Time: 18:49 snw 02/28 17:16 Order name: Lipase sn 02/28 17:16 Order name: LFT's; Complete Time: 18:49 snw 02/28 17:16 Order name: PT-INR; Complete Time: 18:25 snw 02/28 17:26 Order name: NT PRO-BNP; Complete Time: 18:25 [facility] 02/28 17:26 Order name: Troponin (emerg Dept Use Only); Complete Time: 18:25 [facility] 02/28 17:26 Order name: Urine Culture [facility] 02/28 17:26 Order name: Phosphorus; Complete Time: 18:25 [facility] 02/28 17:55 Order name: Urine Dipstick--Ancillary (enter results); Complete Time: 18:25 02/28 19:10 Order name: Basic Metabolic Panel EDMS 02/28 19:10 Order name: Basic Metabolic Panel EDCA 02/28 17:16 Order name: IV Saline Lock; Complete Time: 17:59 sn 02/28 17:16 Order name: Labs collected and sent; Complete Time: 17:59 sn 02/28 17:26 Order name: XRAY Chest (1 view); Complete Time: 19:02 [facility] 02/28 17:26 Order name: EKG; Complete Time: 17:27 [facility] 02/28 19:10 Order name: CBC with Automated Diff EDMS 02/28 19:11 Order name: CBC with Automated Diff EDMS 02/28 19:11 Order name: Lipase EDMS 02/28 19:11 Order name: Lipase EDMS 02/28 19:11 Order name: Liver (Hepatic) Function EDMS 02/28 19:11 Order name: Liver (Hepatic) Function EDMS 02/28 17:26 Order name: Cardiac monitoring; Complete Time: 17:31 [facility] 02/28 17:26 Order name: EKG - Nurse/Tech; Complete Time: 17:59 [facility] 02/28 17:26 Order name: O2 Per Protocol; Complete Time: 17:30 [facility] 02/28 17:26 Order name: O2 Sat Monitoring; Complete Time: 17:31 [facility] 02/28 17:26 Order name: Urine Dipstick-Ancillary (obtain specimen); Complete Time: 17:59 [facility] Administered Medications: Discontinued: NS 0.9% 1000 ml IV at 125 ml/hr continuous 18:35 Drug: NS 0.9% 1000 ml Route: IV; Rate: 125 ml/hr; Site: right antecubital; kr2 19:40 Follow up: IV Status: Order to discontinue infusion kr2 18:45 Drug: Potassium Chloride 20 mEq Route: IV; Rate: per protocol; Site: right antecubital; kr2 19:38 Follow up: IV Status: Completed infusion kr2 19:39 Follow up: Response: No adverse reaction kr2 18:54 Drug: Potassium Effervescent Tablet 25 mEq Route: PO; kr2 19:39 Follow up: Response: No adverse reaction kr2 18:55 Drug: NS 0.9% with KCl 20 mEq/L 1000 ml Route: IV; Rate: 125 ml/hr; Site: right kr2 antecubital; 21:13 Follow up: Response: No adverse reaction; IV Status: Infusion continued upon admission aj1 19:00 Drug: NS 0.9% 500 ml Route: IV; Rate: bolus; Site: right antecubital; kr2 20:20 Follow up: Response: No adverse reaction; IV Status: Completed infusion kr2 19:38 Drug: Magnesium Sulfate 1 grams Route: IVPB; Infused Over: 1 hrs; Site: right kr2 antecubital; 20:20 Follow up: Response: No adverse reaction; IV Status: Completed infusion kr2 Disposition: 02/28/18 19:02 Hospitalization ordered by Sandeep Villareal for Observation. Preliminary diagnosis are Abdominal tenderness, Weakness, Hypokalemia, Hypomagnesemia. - Bed requested for Telemetry/MedSurg (observation). - Status is Observation. kr2 - Condition is Fair. - Problem is new. - Symptoms have improved. UTI on Admission? No Signatures: Dispatcher [employer] EDCathy Husain RN RN aj1 Kartik Woodson MD MD cha Therrien, Shelly, COIN MACHINE SERVICER REPAIRER-C COIN MACHINE SERVICER REPAIRER-Csnw Charito Hanson RN RN cg Ami Albert RN RN kr2 Corrections: (The following items were deleted from the chart) 19:03 19:02 Hospitalization Ordered by Sandeep Villareal MD for Observation. Preliminary diagnosis tyler is Abdominal tenderness; Weakness; Hypokalemia. Bed requested for Telemetry/MedSurg (observation). Status is Observation. Condition is Fair. Problem is new. Symptoms have improved. UTI on Admission? No. tyler 19:58 19:03 02/28/2018 19:02 Hospitalization Ordered by Sandeep Villareal MD for Observation. cg Preliminary diagnosis is Abdominal tenderness; Weakness; Hypokalemia; Hypomagnesemia. Bed requested for Telemetry/MedSurg (observation). Status is Observation. Condition is Fair. Problem is new. Symptoms have improved. UTI on Admission? No. tyler 21:21 19:58 02/28/2018 19:02 Hospitalization Ordered by Sandeep Villareal MD for Observation. kr2 Preliminary diagnosis is Abdominal tenderness; Weakness; Hypokalemia; Hypomagnesemia. Bed requested for Telemetry/MedSurg (observation). Status is Observation. Condition is Fair. Problem is new. Symptoms have improved. UTI on Admission? No. cg
[2018-02-28] MEDS ORDERED: ACETAMINOPHEN 500 MG TAB PO PRN (19:06)
[2018-02-28] MEDS ORDERED: ONDANSETRON 4 MG/2 ML VIAL IV PRN (19:06)
[2018-02-28] MEDS ORDERED: FENTANYL CITR 100 MCG/2 ML IV PRN (19:08)
[2018-02-28] MEDS ORDERED: MAGNESIUM SULFATE 1 gm IVPB 1 GM/100 ML BAG IV ONE (19:20)
--- NOTE | 2018-02-28 20:55 | EKG ---
Test Date: 2018-02-28 Test Time: 17:49:52 Transport Conductor: KEITH MEASUREMENT RESULTS: Intervals: Rate: 80 WV: 124 QRSD: 78 QT: 396 QTc: 456 [place]: P: 50 WV: 124 QRS: -9 T: 43 INTERPRETIVE STATEMENTS: Normal sinus rhythm Normal ECG No previous ECG available for comparison Electronically Signed On 02-28-18 20:54:29 [employer] by Brice Spencer
[2018-02-28] MEDS: D5.45NS W/KCL 20MEQ 20 MEQ/1,000 ML BAG IV SCH (22:27)
[2018-02-28] MEDS: MAGNESIUM OXIDE 400 MG TAB PO SCH (22:28)
[2018-02-28] MEDS: FAMOTIDINE 20 MG/2 ML VIAL IV SCH (22:28)
[2018-03-01 05:36] LABS: RBC Red Blood Cell Count 2.98 M/uL (3.86-4.86)
[2018-03-01 05:37] LABS: Absolute Lymphocytes (CBC) 1.2 K/uL (0.7-4.9); Absolute Monocytes 0.8 K/uL (0.1-1.3); Absolute Neutrophil 2.4 K/uL (1.8-8.0); Basophils % 1.3 % (0-1.3); Eosinophils % 5.3 % (0-4.4); Hematocrit 28.2 % (36.0-45.0); Lymphocytes % 25.2 % (15.3-44.8); MCH 33.4 pg (27.0-35.0); MCV 94.5 fL (80-100); MPV 7.7 fL (7.6-11.3); Monocytes % 17.1 % (3.3-12.3)
[2018-03-01 05:55] LABS: ALT/SGPT 16 U/L (12-78); AST/SGOT 18 U/L (15-37); Albumin 2.5 g/dL (3.4-5.0); Alkaline Phosphatase 107 U/L (45-117); BUN Blood Urea Nitrogen 17 mg/dL (7-18); Bicarbonate 36 mmol/L (21-32); Bilirubin Direct 1.1 mg/dL (0-0.2); Bilirubin Total 1.6 mg/dL (0.2-1.0); Glucose Level 98 mg/dL (74-106); Lipase 123 U/L (73-393); Protein, Total 5.4 g/dL (6.4-8.2); Sodium Level 139 mmol/L (136-145)
[2018-03-01 05:58] LABS: Potassium 2.8 mmol/L (3.5-5.1)
[2018-03-01 06:28] LABS: Blood Morphology Comment NOT SEEN (NOT SEEN); Platelet Estimate ADEQ
[2018-03-01] MEDS: D5.45NS W/KCL 20MEQ 20 MEQ/1,000 ML BAG IV SCH ×2 (06:29→13:44)
[2018-03-01] MEDS: KCL 20 MEQ/100 mL IVPB 20 MEQ/100 ML BAG IV SCH ×3 (06:52→11:11)
[2018-03-01 07:13] LABS: Magnesium 1.7 mg/dL (1.8-2.4)
[2018-03-01] MEDS ORDERED: TRAMADOL HCL 50 MG TAB PO PRN (09:24)
[2018-03-01] MEDS: MAGNESIUM OXIDE 400 MG TAB PO SCH (09:30)
[2018-03-01] MEDS: FAMOTIDINE 20 MG/2 ML VIAL IV SCH (09:30)
--- NOTE | 2018-03-01 09:46 | P.SSS ---
Patient History Date of Service: 03/01/18 Reason for admission: LOW K FOUND BY DR LANIER History of Present Illness: MS. GREGG IS A PANCREATIC CANCER PATIENT SP WHIPPLE'S SURGERY ABOUT 2 WEEKS AGO AT [facility]. DR LANIER SAW HER FOR FIRST VISIT AND K WAS LOW AT 2.8. SHE WAS SENT TO ER. SHE HAS NO SYMPTOMS FOR NOW. Allergies No Known Allergies Allergy (Verified 02/28/18 19:21) Home Medications: Alendronate Sodium 70 mg PO SEECOM 02/28/18 Amlodipine Besylate/Benazepril [Amlodipine-Benazepril 5-10 mg] 1 each PO DAILY 02/28/18 Levothyroxine Sodium 25 mcg PO DAILY 02/28/18 Lovastatin 20 mg PO BEDTIME 02/28/18 Metoclopramide [Reglan] 5 mg PO Q4H PRN 02/28/18 Ondansetron [Ondansetron Odt] 8 mg PO Q12H PRN 02/28/18 traMADol HCL [Ultram*] 50 mg PO Q4HR PRN 02/28/18 - Past Medical/Surgical History Has patient received pneumonia vaccine in the past: Yes Diabetic: No -: Pancreatic Cancer -: HTN -: Hypothyroidism -: Hyperlipidemia -: Whipple Surgery (2 weeks ago) - Family History Father -: Stroke Mother -: Cancer - Social History Smoking Status: Never smoker Alcohol use: No CD- Drugs: No Caffeine use: Yes Place of Residence: Home Review of Systems 10-point ROS is otherwise unremarkable Physical Examination - Vital Signs Temperature: 97.8 F Blood Pressure: 112/56 Pulse: 82 Respirations: 18 Pulse Ox (%): 100 - Physical Exam General: Alert, In no apparent distress HEENT: Atraumatic, PERRLA, Mucous membr. moist/pink, EOMI, Sclerae nonicteric Neck: Supple, 2+ carotid pulse no bruit, No LAD, Without JVD or thyroid abnormality Respiratory: Clear to auscultation bilaterally, Normal air movement Cardiovascular: Regular rate/rhythm, Normal S1 S2 Gastrointestinal: Soft and benign, Other (POST OP- SCAR IS IN GOOD SHAPE) Musculoskeletal: No tenderness Integumentary: No rashes Neurological: Normal gait, Normal speech, Normal strength at 5/5 x4 extr, Normal tone, Normal affect Lymphatics: No axilla or inguinal lymphadenopathy - Studies Laboratory Data (last 24 hrs) 02/28/18 17:50: Phosphorus 3.6 02/28/18 17:50: PT 13.4 H, INR 1.13 02/28/18 17:50: WBC 9.0, Hgb 11.7 L, Hct 33.5 L, Plt Count 472 H 02/28/18 17:50: Sodium 135 L, Potassium 2.3 L*, BUN 19 H, Creatinine 0.80, Glucose 108 H, Magnesium 1.6 L, Total Bilirubin 2.2 H, AST 23, ALT 21, Alkaline Phosphatase 141 H, Lipase 123 - Diagnosis (Problem(s)) (1) Hypokalemia Current Visit: Yes Status: Acute Plan: MAINLY POST OP. LOW INTAKE. K REPLACE. MAG REPLACE. FU IN TWO WEEKS. BETTER DIET NOW SHOULD IMPROVE. STOP BUMEX. (2) Hypomagnesemia Current Visit: Yes Status: Acute Plan: SAME PLAN ABOVE. (3) Pancreatic cancer Current Visit: Yes Status: Acute Plan: CHEMO TO BE STARTED SOON. - Disposition Disposition: ROUTINE DISCHARGE Patient Discharge Instructions: STOP BUMETADINE. COME TO OFFICE IN 2 WEEKS. Diet: Regular
[2018-03-01] MEDS ORDERED: AMLODIPINE 5 MG TAB PO SCH (10:00)
[2018-03-01] MEDS ORDERED: ATORVASTATIN 10 MG TAB PO SCH (21:00)
[2018-03-02] MEDS ORDERED: LEVOTHYROXINE SOD 0.025 MG TAB PO SCH (06:30)
[2018-03-02] MEDS ORDERED: BENAZEPRIL 10 MG TAB PO SCH (09:00)
== END 2018-03-01 15:54 | disposition home or self-care (01) ==
LOC: ER 16:44 → ERHOLD 19:04 → 4TH 21:02
PROVIDERS: ADMIT Internal Medicine; ATTEND Internal Medicine
DX: E87.6 Hypokalemia (principal); E83.42 Hypomagnesemia; C25.9 Malignant neoplasm of pancreas, unspecified; I10 Essential (primary) hypertension; E78.5 Hyperlipidemia, unspecified
CPT/HCPCS: 36415; 71045; 80048 ×2; 80076 ×2; 81003; 83690 ×2; 83735 ×3; 83880; 84100; 84132; 84484; 85025 ×2; 85610; 87077 ×2; 87086; 87088; 87186 ×2; 93005; 96361; 96365; 96367; 99285; J3475; G0378

== ENCOUNTER 2019-06-07 10:12 | Emergency (ER) | payer OTHER ==
--- OUTSIDE RECORDS SUMMARY | 2019-06-07 10:17 | XMS REPORT ---
:1940 [facility] [place] [address] Care Team Providers Name Role Phone MARK ESCALERA Unavailable Unavailable JHOANCAS Unavailable Unavailable Problems This patient has no known problems. Allergies, Adverse Reactions, Alerts This patient has no known allergies or adverse reactions. Medications This patient has no known medications. Encounters Start End Encounter Admission Attending Care Care Encounter Date/Time Date/Time Type Type Clinicians Facility Department ID 2019-05-03 2019-05-03 Outpatient [facility] MED [id number] 11:30:00 11:30:00 Results Test Description Test Time Test Comments Text Results Atomic Results Result Comments TISSUE EXAM 2019-04-26 19:15:00 Surgical Pathology Report Case: [id number] Authorizing Provider: Mark Escalera MD Collected: 02/12/2018 0923 Ordering Location: [facility] PERIOPERATIVE Received: 02/12/2018 1247 SERVICES Pathologist: Navarro Love MD Specimens: A) - Lymph Node, Hepatic Artery Lymph Node B) - Pancreas, Ink=Neck Margin, Blue Stitch=SMA, Black Stitch=Common Bile Duct The addendum is being issued to report the results of immunohistochemistry (IHC) testing for Mismatch Repair (MMR) Proteins, which has been performed at the request of the oncologist.The diagnosis remains unchanged.IHC testing for all four MMR proteins was performed on selected block B5 with appropriate controls.RESULTSMLH1: Intact nuclear expressionMSH2: Intact nuclear expressionMSH6: Intact nuclear expressionPMS2: Intact nuclear expressionIHC InterpretationNo loss of nuclear expression of MMR proteins. 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 LYMPH NODE, HEPATIC ARTERY, EXCISION: - ONE [...] (pT2 pN2) Signing Pathologist Direct Phone Line: [phone] signed by Navarro Love MD on 02/15/2018 [...] Tumor Extension: Tumor involves vascular bed / groove (corresponding to superior mesenteric vein / portal vein) Accessory Findings: Treatment Effect: No known presurgical therapy Lymphovascular Invasion: Present Perineural Invasion: Present MARGINS Margins: Pancreatic Neck / Parenchymal Margin: Uninvolved by invasive carcinoma Distance of Invasive Carcinoma from Margin: 1 Centimeters (cm) Uncinate (Retroperitoneal / Superior Mesenteric Artery) Margin: Involved by invasive carcinoma Bile Duct Margin: Uninvolved by invasive carcinoma and high-grade intraepithelial neoplasia Distance of Invasive Carcinoma from Margin: 3 Centimeters (cm) Proximal Margin (Gastric or Duodenal): Uninvolved by invasive carcinoma and high-grade dysplasia Distal Margin (Duodenal or Jejunal): Uninvolved by invasive carcinoma and high-grade dysplasia LYMPH NODES Number of Lymph Nodes Involved: 5 Number of Lymph Nodes Examined: 24 PATHOLOGIC STAGE CLASSIFICATION (pTNM, AJCC 8th Edition) TNM Descriptors: Not applicable Primary Tumor (pT): pT2 Regional Lymph Nodes (pN): pN2 ADDITIONAL FINDINGS 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 99633J. 10263, 04966, 39624 b9Uyjapvqzd neoplasm of pancreasA. Hepatic artery lymph node; B. [...] bile duct margin, en face; B3, tumor, circulation sales representative; B4, vascular bed, en face; B5-B8, uncinate margin, perpendicular sections, entirely submitted; B9-B10, ampulla, both halves, en face; B11-B17, tumor (B17 tumor in relation to common bile duct); B18, four lymph node candidates, posterior-inferior; B19, five lymph node candidates, posterior-superior; B20-B23, possible lymph node candidates, anterior-inferior; B24, gastric margin, en face; B25, duodenal margin, en face; B26, uninvolved pancreas with pancreatic and common bile ducts; B27-B28 duodenum, circulation sales representative; B29, cystic duct edge; B30, cystic duct circulation sales representative. OK/pl/ewFROZEN SECTION DIAGNOSIS: B1FS, PANCREATIC NECK MARGIN, NEGATIVE FOR CHTOKLNRIR0GO, COMMON BILE DUCT MARGIN, NEGATIVE FOR [id number], TUMOR COOPER APPRENTICE; ADENOCARCINOMAThe findings are reported to Dr. Escalera by Dr. Love on 12:49 p.m. February 12, 2018. ANAEROBIC CULTURE 2018-02-20 04:17:00 Test Item Value Reference Range Comments CULTURE (BEAKER) (test drqx=1174) <1+ Propionibacterium acnes ANAEROBIC [id number] 05:08:00 Test Item Value Reference Range Comments CULTURE (BEAKER) (test zfai=8748) No anaerobes isolated HEPATIC FUNCTION [id number] 06:35:00 Test Item Value Reference Range Comments TOTAL PROTEIN (BEAKER) (test hnus=476) 4.5 gm/dL 6.0-8.3 ALBUMIN (BEAKER) (test renh=3330) 2.5 g/dL 3.5-5.0 BILIRUBIN TOTAL (BEAKER) (test edhn=999) 2.3 mg/dL 0.2-1.2 BILIRUBIN DIRECT (BEAKER) (test tuby=369) 1.8 mg/dL 0.1-0.5 ALKALINE PHOSPHATASE (BEAKER) (test hifw=422) 169 U/L 40-150 AST (SGOT) (BEAKER) (test oxme=546) 25 U/L 5-34 ALT (SGPT) (BEAKER) (test lfgc=932) 32 U/L 6-55 Specimen slightly ictericSURGICALLY OBTAINED CULTURE + GRAM [id number] 16: 50:00 Test Item Value Reference Range Comments CULTURE (BEAKER) (test ENTEROCOCCUS SPECIES 1+ Enterococcus species xrmt=5203) Ampicillin (test code=26) Linezolid (test code=40) Tetracycline (test code=2) Vancomycin (test code=13) CULTURE (BEAKER) (test <1+ Enterobacter cloacae qcli=9423) complex GRAM STAIN RESULT 1+ WBCs (BEAKER) (test plld=7550) GRAM STAIN RESULT No organisms seen (BEAKER) (test escj=384070) [id number] 06:20:00 Test Item Value Reference Range Comments PHOSPHORUS (BEAKER) (test lenj=301) 1.2 mg/dL 2.3-4.7 [id number] 06:19:00 Test Item Value Reference Range Comments MAGNESIUM (BEAKER) (test foie=546) 1.9 mg/dL 1.6-2.6 BASIC METABOLIC [id number] 06:19:00 Test Item Value Reference Range Comments SODIUM (BEAKER) (test 137 meq/L 136-145 qsnc=185) POTASSIUM (BEAKER) (test 3.5 meq/L 3.5-5.1 qgid=989) CHLORIDE (BEAKER) (test 106 meq/L 98-107 tpll=998) CO2 (BEAKER) (test 23 meq/L 22-29 wcwz=645) BLOOD UREA NITROGEN 8 mg/dL 7-21 (BEAKER) (test uxhg=037) CREATININE (BEAKER) (test 0.60 mg/dL 0.57-1.25 weaa=636) GLUCOSE RANDOM (BEAKER) 78 mg/dL 70-105 (test asyv=994) CALCIUM (BEAKER) (test 8.0 mg/dL 8.4-10.2 rovw=971) EGFR (BEAKER) (test 97 mL/min/1.73 sq m ESTIMATED GFR IS NOT jzje=3755) ACCURATE CREATININE CLEARANCE IN PREDICTING GLOMERULAR FILTRATION RATE. ESTIMATED GFR IS NOT APPLICABLE FOR DIALYSIS PATIENTS. Specimen slightly ictericHEPATIC FUNCTION [id number] 06:19:00 Test Item Value Reference Range Comments TOTAL PROTEIN (BEAKER) (test htmx=478) 5.2 gm/dL 6.0-8.3 ALBUMIN (BEAKER) (test tnan=4375) 2.9 g/dL 3.5-5.0 BILIRUBIN TOTAL (BEAKER) (test xuce=290) 2.8 mg/dL 0.2-1.2 BILIRUBIN DIRECT (BEAKER) (test rvkr=631) 2.0 mg/dL 0.1-0.5 ALKALINE PHOSPHATASE (BEAKER) (test uqph=321) 194 U/L 40-150 AST (SGOT) (BEAKER) (test aadm=745) 30 U/L 5-34 ALT (SGPT) (BEAKER) (test mgcf=488) 40 U/L 6-55 Specimen slightly ictericCBC (HEMOGRAM ONLY)2018-02-15 05:55:00 Test Item Value Reference Range Comments WHITE BLOOD CELL COUNT (BEAKER) (test rctf=292) 13.1 K/ L 3.5-10.5 RED BLOOD CELL COUNT (BEAKER) (test hzgu=444) 3.05 M/ L 3.93-5.22 HEMOGLOBIN (BEAKER) (test ggez=253) 9.8 GM/DL 11.2-15.7 HEMATOCRIT (BEAKER) (test hqrj=468) 31.0 % 34.1-44.9 MEAN CORPUSCULAR VOLUME (BEAKER) (test wypc=999) 101.6 fL 79.4-94.8 MEAN CORPUSCULAR HEMOGLOBIN (BEAKER) (test 32.1 pg 25.6-32.2 sisj=521) MEAN CORPUSCULAR HEMOGLOBIN CONC (BEAKER) (test 31.6 GM/DL 32.2-35.5 tkco=096) RED CELL DISTRIBUTION WIDTH (BEAKER) (test 15.7 % 11.7-14.4 ylvf=714) PLATELET COUNT (BEAKER) (test jbko=942) 335 K/CU MM 150-450 MEAN PLATELET VOLUME (BEAKER) (test pdbk=382) 10.2 fL 9.4-12.3 NUCLEATED RED BLOOD CELLS (BEAKER) (test 0 /100 WBC 0-0 qvhc=947) AMYLASE, BODY [id number] 05:30:00 Test Item Value Reference Range Comments AMYLASE FLUID (BEAKER) (test qfaz=302) 14 U/L Absence of reference range indicates that normals have not been defined.Assay performance has not been validated for this type of specimen.Lateral drainAMYLASE, BODY [id number] 05:30:00 Test Item Value Reference Range Comments AMYLASE FLUID (BEAKER) (test aqfp=792) 12 U/L Absence of reference range indicates that normals have not been defined.Assay performance has not been validated for this type of specimen.Medial drainSURGICALLY OBTAINED CULTURE + GRAM [id number] 10:26:00 Test Item Value Reference Range Comments CULTURE (BEAKER) (test ACINETOBACTER 1+ Acinetobacter ykyv=5647) BAUMANNII baumannii Amikacin (test code=1) Susceptible 0-16 [...] CULTURE (BEAKER) (test From Broth Only Same wloe=0116) organism has been isolated from cultures(s) of the same body site and collection date. Repeat identification and susceptibility testing performed only after consultation with the clinical microbiology laboratory.Refer to previous culture ofEnterococcus species GRAM STAIN RESULT 2+ White blood cells (BEAKER) (test seen jvwr=2812) GRAM STAIN RESULT 1+ gram positive (BEAKER) (test cocci gbyg=929475) GRAM STAIN RESULT <1+ gram negative (BEAKER) (test rods jzvl=485465) URINALYSIS W/ REFLEX URINE [id number] 06:48:00 Test Item Value Reference Range Comments COLOR (BEAKER) (test xxdo=369) Yellow CLARITY (BEAKER) (test byrz=465) Clear SPECIFIC GRAVITY UA (BEAKER) (test sxfp=171) 1.013 1.001-1.035 PH UA (BEAKER) (test qkdz=661) 5.5 5.0-8.0 PROTEIN UA (BEAKER) (test nlke=369) 30 mg/dL Negative GLUCOSE UA (BEAKER) (test vnco=892) Negative Negative KETONES UA (BEAKER) (test dcya=687) Negative Negative BILIRUBIN UA (BEAKER) (test ayub=458) Negative Negative BLOOD UA (BEAKER) (test vevs=928) Moderate Negative NITRITE UA (BEAKER) (test sbnc=990) Negative Negative LEUKOCYTE ESTERASE UA (BEAKER) (test lbll=383) Negative Negative UROBILINOGEN UA (BEAKER) (test eqwc=863) 0.2 mg/dL 0.2-1.0 RBC UA (BEAKER) (test dmjs=661) 1 /HPF WBC UA (BEAKER) (test eekq=203) 3 /HPF BACTERIA (BEAKER) (test yjrr=682) Rare MUCUS (BEAKER) (test rxsv=6915) Rare SQUAMOUS EPITHELIAL (BEAKER) (test zboy=996) 2 /HPF HYALINE CASTS (BEAKER) (test plxx=804) 1 /LPF SOURCE(BEAKER) (test tthw=4880) BASIC METABOLIC [id number] 05:46:00 Test Item Value Reference Range Comments SODIUM (BEAKER) (test 136 meq/L 136-145 ogdt=055) POTASSIUM (BEAKER) (test 3.1 meq/L 3.5-5.1 ojta=798) CHLORIDE (BEAKER) (test 105 meq/L 98-107 rvey=538) CO2 (BEAKER) (test 24 meq/L 22-29 qtya=602) BLOOD UREA NITROGEN 13 mg/dL 7-21 (BEAKER) (test znjk=720) CREATININE (BEAKER) (test 0.58 mg/dL 0.57-1.25 bzvk=081) GLUCOSE RANDOM (BEAKER) 85 mg/dL 70-105 (test ouys=328) CALCIUM (BEAKER) (test 7.5 mg/dL 8.4-10.2 fdnd=199) EGFR (BEAKER) (test 101 mL/min/1.73 sq m ESTIMATED GFR IS NOT gevl=3286) ACCURATE CREATININE CLEARANCE IN PREDICTING GLOMERULAR FILTRATION RATE. ESTIMATED GFR IS NOT APPLICABLE FOR DIALYSIS PATIENTS. Specimen slightly [id number] 05:36:00 Test Item Value Reference Range Comments PHOSPHORUS (BEAKER) (test briu=215) 2.3 mg/dL 2.3-4.7 [id number] 05:36:00 Test Item Value Reference Range Comments MAGNESIUM (BEAKER) (test foxq=463) 1.8 mg/dL 1.6-2.6 HEPATIC FUNCTION [id number] 05:36:00 Test Item Value Reference Range Comments TOTAL PROTEIN (BEAKER) (test niev=500) 4.6 gm/dL 6.0-8.3 ALBUMIN (BEAKER) (test ehsi=6284) 2.8 g/dL 3.5-5.0 BILIRUBIN TOTAL (BEAKER) (test fjul=865) 3.0 mg/dL 0.2-1.2 BILIRUBIN DIRECT (BEAKER) (test licb=565) 1.9 mg/dL 0.1-0.5 ALKALINE PHOSPHATASE (BEAKER) (test zyux=721) 179 U/L 40-150 AST (SGOT) (BEAKER) (test dsso=246) 32 U/L 5-34 ALT (SGPT) (BEAKER) (test ccwe=362) 43 U/L 6-55 Specimen slightly ictericCBC (HEMOGRAM ONLY)2018-02-14 05:11:00 Test Item Value Reference Range Comments WHITE BLOOD CELL COUNT (BEAKER) (test pawb=520) 15.1 K/ L 3.5-10.5 RED BLOOD CELL COUNT (BEAKER) (test bqgx=321) 2.76 M/ L 3.93-5.22 HEMOGLOBIN (BEAKER) (test cgbl=126) 9.0 GM/DL 11.2-15.7 HEMATOCRIT (BEAKER) (test vlwf=124) 28.3 % 34.1-44.9 MEAN CORPUSCULAR VOLUME (BEAKER) (test gqpz=359) 102.5 fL 79.4-94.8 MEAN CORPUSCULAR HEMOGLOBIN (BEAKER) (test 32.6 pg 25.6-32.2 hglo=841) MEAN CORPUSCULAR HEMOGLOBIN CONC (BEAKER) (test 31.8 GM/DL 32.2-35.5 ldpm=512) RED CELL DISTRIBUTION WIDTH (BEAKER) (test 16.0 % 11.7-14.4 cfxa=577) PLATELET COUNT (BEAKER) (test pnmh=258) 292 K/CU MM 150-450 MEAN PLATELET VOLUME (BEAKER) (test itqz=434) 10.4 fL 9.4-12.3 NUCLEATED RED BLOOD CELLS (BEAKER) (test 0 /100 WBC 0-0 akho=547) AMYLASE, BODY [id number] 04:25:00 Test Item Value Reference Range Comments AMYLASE FLUID (BEAKER) (test iezh=185) 32 U/L Absence of reference range indicates that normals have not been defined.Assay performance has not been validated for this type of specimen.Lateral drainAMYLASE, BODY [id number] 04:25:00 Test Item Value Reference Range Comments AMYLASE FLUID (BEAKER) (test hqut=439) 56 U/L Absence of reference range indicates that normals have not been defined.Assay performance has not been validated for this type of specimen.Medial drainAMYLASE , BODY [id number] 08:26:00 Test Item Value Reference Range Comments AMYLASE FLUID (BEAKER) (test jvql=146) 87 U/L Absence of reference range indicates that normals have not been defined.Assay performance has not been validated for this type of specimen.Medial drainAMYLASE , BODY [id number] 08:11:00 Test Item Value Reference Range Comments AMYLASE FLUID (BEAKER) (test lclr=773) 91 U/L Absence of reference range indicates that normals have not been defined.Assay performance has not been validated for this type of specimen.Lateral drainBASIC METABOLIC [id number] 07:04:00 Test Item Value Reference Range Comments SODIUM (BEAKER) (test 136 meq/L 136-145 saap=749) POTASSIUM (BEAKER) (test 4.1 meq/L 3.5-5.1 knwk=946) CHLORIDE (BEAKER) (test 111 meq/L 98-107 nufd=058) CO2 (BEAKER) (test 20 meq/L 22-29 srku=148) BLOOD UREA NITROGEN 15 mg/dL 7-21 (BEAKER) (test msph=399) CREATININE (BEAKER) (test 0.66 mg/dL 0.57-1.25 qeow=527) GLUCOSE RANDOM (BEAKER) 103 mg/dL 70-105 (test etaz=404) CALCIUM (BEAKER) (test 7.6 mg/dL 8.4-10.2 plnl=041) EGFR (BEAKER) (test 87 mL/min/1.73 sq m ESTIMATED GFR IS NOT klpc=8504) ACCURATE CREATININE CLEARANCE IN PREDICTING GLOMERULAR FILTRATION RATE. ESTIMATED GFR IS NOT APPLICABLE FOR DIALYSIS PATIENTS. Specimen slightly [id number] 07:02:00 Test Item Value Reference Range Comments PHOSPHORUS (BEAKER) (test qnno=047) 2.1 mg/dL 2.3-4.7 [id number] 07:02:00 Test Item Value Reference Range Comments MAGNESIUM (BEAKER) (test jwqy=734) 1.4 mg/dL 1.6-2.6 HEPATIC FUNCTION [id number] 07:02:00 Test Item Value Reference Range Comments TOTAL PROTEIN (BEAKER) (test uztq=870) 5.3 gm/dL 6.0-8.3 ALBUMIN (BEAKER) (test chfx=8712) 3.3 g/dL 3.5-5.0 BILIRUBIN TOTAL (BEAKER) (test ojof=338) 3.3 mg/dL 0.2-1.2 BILIRUBIN DIRECT (BEAKER) (test wwlz=883) 2.2 mg/dL 0.1-0.5 ALKALINE PHOSPHATASE (BEAKER) (test xwop=021) 208 U/L 40-150 AST (SGOT) (BEAKER) (test wgsz=352) 50 U/L 5-34 ALT (SGPT) (BEAKER) (test hctv=335) 60 U/L 6-55 Specimen slightly ictericCBC (HEMOGRAM ONLY)2018-02-13 07:00:00 Test Item Value Reference Range Comments WHITE BLOOD CELL COUNT (BEAKER) (test yyoe=710) 16.5 K/ L 3.5-10.5 RED BLOOD CELL COUNT (BEAKER) (test oyfr=628) 3.13 M/ L 3.93-5.22 HEMOGLOBIN (BEAKER) (test tsli=516) 10.3 GM/DL 11.2-15.7 HEMATOCRIT (BEAKER) (test xwij=319) 32.6 % 34.1-44.9 MEAN CORPUSCULAR VOLUME (BEAKER) (test wqaq=091) 104.2 fL 79.4-94.8 MEAN CORPUSCULAR HEMOGLOBIN (BEAKER) (test 32.9 pg 25.6-32.2 xbes=017) MEAN CORPUSCULAR HEMOGLOBIN CONC (BEAKER) (test 31.6 GM/DL 32.2-35.5 pyhn=271) RED CELL DISTRIBUTION WIDTH (BEAKER) (test 16.1 % 11.7-14.4 pkzo=214) PLATELET COUNT (BEAKER) (test hipx=317) 366 K/CU MM 150-450 MEAN PLATELET VOLUME (BEAKER) (test zzuz=706) 9.9 fL 9.4-12.3 NUCLEATED RED BLOOD CELLS (BEAKER) (test 0 /100 WBC 0-0 bbne=176) BASIC METABOLIC [id number] 17:20:00 Test Item Value Reference Range Comments SODIUM (BEAKER) (test 137 meq/L 136-145 klza=590) POTASSIUM (BEAKER) (test 4.6 meq/L 3.5-5.1 leaj=512) CHLORIDE (BEAKER) (test 110 meq/L 98-107 pkum=621) CO2 (BEAKER) (test 21 meq/L 22-29 vniv=492) BLOOD UREA NITROGEN 16 mg/dL 7-21 (BEAKER) (test htfi=258) CREATININE (BEAKER) (test 0.77 mg/dL 0.57-1.25 hnlh=670) GLUCOSE RANDOM (BEAKER) 151 mg/dL 70-105 (test rwjh=062) CALCIUM (BEAKER) (test 7.8 mg/dL 8.4-10.2 quni=928) EGFR (BEAKER) (test 73 mL/min/1.73 sq m ESTIMATED GFR IS NOT fovm=6938) ACCURATE CREATININE CLEARANCE IN PREDICTING GLOMERULAR FILTRATION RATE. ESTIMATED GFR IS NOT APPLICABLE FOR DIALYSIS PATIENTS. Specimen slightly [id number] 17:19:00 Test Item Value Reference Range Comments POTASSIUM (BEAKER) (test ssjx=408) 4.6 meq/L 3.5-5.1 CBC (HEMOGRAM ONLY)2018-02-12 16:54:00 Test Item Value Reference Range Comments WHITE BLOOD CELL COUNT (BEAKER) (test kdwh=239) 11.9 K/ L 3.5-10.5 RED BLOOD CELL COUNT (BEAKER) (test omuk=809) 2.91 M/ L 3.93-5.22 HEMOGLOBIN (BEAKER) (test fuco=680) 9.3 GM/DL 11.2-15.7 HEMATOCRIT (BEAKER) (test icci=308) 29.1 % 34.1-44.9 MEAN CORPUSCULAR VOLUME (BEAKER) (test tuiq=267) 100.0 fL 79.4-94.8 MEAN CORPUSCULAR HEMOGLOBIN (BEAKER) (test 32.0 pg 25.6-32.2 yupb=494) MEAN CORPUSCULAR HEMOGLOBIN CONC (BEAKER) (test 32.0 GM/DL 32.2-35.5 vulu=585) RED CELL DISTRIBUTION WIDTH (BEAKER) (test 15.5 % 11.7-14.4 brde=859) PLATELET COUNT (BEAKER) (test pyoj=291) 299 K/CU MM 150-450 MEAN PLATELET VOLUME (BEAKER) (test mrmy=016) 9.5 fL 9.4-12.3 NUCLEATED RED BLOOD CELLS (BEAKER) (test 0 /100 WBC 0-0 wjsu=187) GLUCOSE-STAT [id number] 12:41:00 Test Item Value Reference Range Comments GLUCOSE RANDOM (BEAKER) (test meok=499) 126 mg/dL 70-110 HGB/HCT (H&H) - STAT [id number] 12:41:00 Test Item Value Reference Range Comments HEMOGLOBIN (BEAKER) (test wlnu=608) 10.1 g/dL 12.0-15.0 HEMATOCRIT (BEAKER) (test ilco=635) 30.0 % 36.0-45.0 BLOOD GAS, [id number] 12:41:00 Test Item Value Reference Range Comments PH ARTERIAL (BEAKER) (test nstc=989) 7.39 7.35-7.45 PCO2 ARTERIAL (BEAKER) (test zjvj=212) 39 mmHg 35-45 PO2 ARTERIAL (BEAKER) (test qxnz=010) 269 mmHg 80-90 O2 SATURATION ARTERIAL (BEAKER) (test ywxn=501) 99.6 % 96.0-97.0 HCO3 ARTERIAL (BEAKER) (test npgl=021) 23 mmol/L 21-29 BASE EXCESS ARTERIAL (BEAKER) (test bmqd=303) -1.9 mmol/L -2.0-3.0 PATIENT TEMPERATURE (BEAKER) (test nuib=4308) 37.0 C FIO2 (BEAKER) (test qgcj=4747) 50.0 % CALCIUM, [id number] 12:41:00 Test Item Value Reference Range Comments CALCIUM IONIZED (BEAKER) (test fauw=959) 1.00 mmol/L 1.12-1.27 PH, BLOOD (BEAKER) (test oohg=3279) 7.39 SODIUM NA-STAT [id number] 12:40:00 Test Item Value Reference Range Comments SODIUM (BEAKER) (test such=669) 135 meq/L 135-148 POTASSIUM-STAT [id number] 12:40:00 Test Item Value Reference Range Comments POTASSIUM (BEAKER) (test vmcv=123) 4.8 meq/L 3.6-5.5 POTASSIUM-STAT [id number] 08:57:00 Test Item Value Reference Range Comments POTASSIUM (BEAKER) (test ehmu=443) 2.9 meq/L 3.6-5.5 HGB/HCT (H&H) - STAT [id number] 08:57:00 Test Item Value Reference Range Comments HEMOGLOBIN (BEAKER) (test dxgi=703) 10.1 g/dL 12.0-15.0 HEMATOCRIT (BEAKER) (test qqim=192) 30.0 % 36.0-45.0 BLOOD GAS, [id number] 08:57:00 Test Item Value Reference Range Comments PH ARTERIAL (BEAKER) (test itbs=723) 7.53 7.35-7.45 PCO2 ARTERIAL (BEAKER) (test whog=624) 27 mmHg 35-45 PO2 ARTERIAL (BEAKER) (test wkkt=248) 347 mmHg 80-90 O2 SATURATION ARTERIAL (BEAKER) (test mynx=263) 99.8 % 96.0-97.0 HCO3 ARTERIAL (BEAKER) (test bbhe=378) 22 mmol/L 21-29 BASE EXCESS ARTERIAL (BEAKER) (test sxos=956) 0.4 mmol/L -2.0-3.0 PATIENT TEMPERATURE (BEAKER) (test gnej=6153) 37.0 C FIO2 (BEAKER) (test epes=9656) 90.0 % CALCIUM, [id number] 08:57:00 Test Item Value Reference Range Comments CALCIUM IONIZED (BEAKER) (test jvaq=876) 1.09 mmol/L 1.12-1.27 PH, BLOOD (BEAKER) (test kdvn=9199) 7.53 GLUCOSE-STAT [id number] 08:56:00 Test Item Value Reference Range Comments GLUCOSE RANDOM (BEAKER) (test brup=349) 93 mg/dL 70-110 SODIUM NA-STAT [id number] 08:56:00 Test Item Value Reference Range Comments SODIUM (BEAKER) (test dojg=686) 135 meq/L 135-148 POTASSIUM-STAT [id number] 06:57:00 Test Item Value Reference Range Comments POTASSIUM (BEAKER) (test olpr=438) 3.0 meq/L 3.6-5.5 [id number] 17:22:00Medical Cytology Report Case: [id number] Authorizing Provider: Randy Andrew MD Collected: 02/03/2018 1308 Ordering Location: [address] Received: 02/05/2018 1110 Service Pathologist: Steffi Renee MD Specimen: Common Bile Duct COMMON BILE DUCT BRUSHING (CYTOSPINS): - NO MALIGNANT CELLS SEEN Signing Pathologist Direct Phone Line: [phone] signed by Steffi Renee MD on 02/07/2018 at 5:22 PMPlease see cases [id number] and [id number] head mass, bile duct strictureCOMMON BILE DUCT BRUSHING1 brush tipin cytorich red; 2 cytospinsCollected: [id number]: [id number]s County Hospital, Department of Pathology, [address] [place] [address], [place] [address], DcsboySaint [facility], [facility] of Pathology, [address] [place] [id number] , TzxrngSaint Louise Regional Hospital, Department of Pathology, [address] [place] [address], FXZI NEEDLE ASPIRATION BY [id number] 11:04:00Medical Cytology Report Case: [id number] Authorizing Provider: Randy Andrew MD Collected: 02/03/2018 1308 Ordering Location: [address] Received: 02/05/2018 1108 Service Pathologist: Steffi Renee MD Specimen: Pancreas, Head, Head of pancreas FNA PANCREAS HEAD MASS FNA BY CLINICIAN (CYTOSPINS AND CELL BLOCK OF ASPIRATE) : - FEW CLUSTERS OF ATYPICAL CELLS (SEE COMMENT) Signing Pathologist Direct Phone Line: [phone] signed by Keith Renee MD on 02/07/2018 at 11:04 AMVery few atypical cell clusters with rare gland formation are seen in the cellblock. These cells are very few for a definite diagnosis. Background acinar tissue is present. Five levels are examined.Please see cases [id number] and [id number], 60556(2.2 x 2.0 cm) Irregular mass in the pancreatic headPANCREAS, HEAD MASS FNA25 mls in cytorich red; 4 cytospins, cell blockCollected: [id number]: [id number] [facility], Department of Pathology, [address] [place] [address], Tel MSaint [facility], [facility] of Pathology, [address] [place] [address], NqzftaSaint Louise [facility], Department of Pathology, [address] [place] [address], Tel TISSUE [id number] 18:25:00Surgical Pathology Report Case: [id number] Authorizing Provider: Randy Andrew MD Collected: 02/03/2018 1307 Ordering Location: [address] Received: 2017 0812 Service Pathologist: Shayan Green MD Specimen: Pancreas, Head, FNA -head of pancreas PANCREAS, HEAD, FNA BIOPSY OF MASS- ADENOCARCINOMA- SEE COMMENT Signing Pathologist Direct Phone Line: [phone] signed by Sahyan Green MD on 2017 at 6:25 PMAbundant benign acinar tissue is seen in the background. Please also see concurrent cytology reports [id number] and [id number].Intradepartmental consultation: Los Baez MD has seen the case and agrees with the diagnosis.[id number] mass, jaundice Head of pancreas FNA biopsy Received in formalin labeled "pancreas, head" are multiple carrion-white friable fragments of soft tissue admixed with clotted blood measuring 1.5 x 1.1 x 02 cm in aggregate. The specimen is entirely submitted in cassette A1. DB/ew Performed.CT , ABDOMEN - PELVIS, PANCREAS [id number] 10:37:00Reason for exam:-> abnormal EUSFINAL REPORT INDICATION:77-year-old [...] Pineda MDReport VerifiedDate/Time: 02/06/2018 10:37:24 Reading Location: [facility] C0X Ortho Consult Reading Room [id number] 06:11:00 Test Item Value Reference Range Comments MAGNESIUM (BEAKER) (test raup=923) 1.7 mg/dL 1.6-2.6 BASIC METABOLIC [id number] 06:11:00 Test Item Value Reference Range Comments SODIUM (BEAKER) (test 142 meq/L 136-145 zagt=030) POTASSIUM (BEAKER) (test 3.2 meq/L 3.5-5.1 xzlx=058) CHLORIDE (BEAKER) (test 111 meq/L 98-107 jtvj=743) CO2 (BEAKER) (test 23 meq/L 22-29 bgvi=486) BLOOD UREA NITROGEN 7 mg/dL 7-21 (BEAKER) (test lnvu=558) CREATININE (BEAKER) (test 0.62 mg/dL 0.57-1.25 msfm=889) GLUCOSE RANDOM (BEAKER) 80 mg/dL 70-105 (test wvbe=955) CALCIUM (BEAKER) (test 8.7 mg/dL 8.4-10.2 itef=790) EGFR (BEAKER) (test 93 mL/min/1.73 sq m ESTIMATED GFR IS NOT cmyh=7337) ACCURATE CREATININE CLEARANCE IN PREDICTING GLOMERULAR FILTRATION RATE. ESTIMATED GFR IS NOT APPLICABLE FOR DIALYSIS PATIENTS. Specimen moderately ictericHEPATIC FUNCTION [id number] 06:11:00 Test Item Value Reference Range Comments TOTAL PROTEIN (BEAKER) (test ajpq=202) 5.1 gm/dL 6.0-8.3 ALBUMIN (BEAKER) (test tmov=1210) 2.7 g/dL 3.5-5.0 BILIRUBIN TOTAL (BEAKER) (test brwo=101) 5.5 mg/dL 0.2-1.2 BILIRUBIN DIRECT (BEAKER) (test msnw=347) 3.5 mg/dL 0.1-0.5 ALKALINE PHOSPHATASE (BEAKER) (test hjgy=344) 597 U/L 40-150 AST (SGOT) (BEAKER) (test faoq=618) 54 U/L 5-34 ALT (SGPT) (BEAKER) (test mojy=951) 108 U/L 6-55 Specimen moderately ictericCBC W/PLT COUNT & AUTO [id number] 06: 03:00 Test Item Value Reference Range Comments WHITE BLOOD CELL COUNT (BEAKER) (test gxse=556) 8.1 K/ L 3.5-10.5 RED BLOOD CELL COUNT (BEAKER) (test wjkf=910) 2.82 M/ L 3.93-5.22 HEMOGLOBIN (BEAKER) (test aakf=979) 8.9 GM/DL 11.2-15.7 HEMATOCRIT (BEAKER) (test fbnk=478) 27.9 % 34.1-44.9 MEAN CORPUSCULAR VOLUME (BEAKER) (test mfcq=807) 98.9 fL 79.4-94.8 MEAN CORPUSCULAR HEMOGLOBIN (BEAKER) (test 31.6 pg 25.6-32.2 audk=598) MEAN CORPUSCULAR HEMOGLOBIN CONC (BEAKER) (test 31.9 GM/DL 32.2-35.5 hurn=068) RED CELL DISTRIBUTION WIDTH (BEAKER) (test 15.7 % 11.7-14.4 qlix=158) PLATELET COUNT (BEAKER) (test tvsi=456) 222 K/CU MM 150-450 MEAN PLATELET VOLUME (BEAKER) (test dgfm=716) 10.2 fL 9.4-12.3 NUCLEATED RED BLOOD CELLS (BEAKER) (test 0 /100 WBC 0-0 dmwk=149) NEUTROPHILS RELATIVE PERCENT (BEAKER) (test 64 % niff=832) LYMPHOCYTES RELATIVE PERCENT (BEAKER) (test 19 % dlsc=408) MONOCYTES RELATIVE PERCENT (BEAKER) (test 8 % qlfj=159) EOSINOPHILS RELATIVE PERCENT (BEAKER) (test 3 % lwdw=743) BASOPHILS RELATIVE PERCENT (BEAKER) (test 1 % gfck=981) NEUTROPHILS ABSOLUTE COUNT (BEAKER) (test 5.17 K/ L 1.56-6.13 ghyv=295) LYMPHOCYTES ABSOLUTE COUNT (BEAKER) (test 1.56 K/ L 1.18-3.74 hpcd=833) MONOCYTES ABSOLUTE COUNT (BEAKER) (test 0.63 K/ L 0.24-0.36 jctu=067) EOSINOPHILS ABSOLUTE COUNT (BEAKER) (test 0.24 K/ L 0.04-0.36 bwkg=064) BASOPHILS ABSOLUTE COUNT (BEAKER) (test 0.06 K/ L 0.01-0.08 gkvx=697) IMMATURE GRANULOCYTES-RELATIVE PERCENT (BEAKER) 5 % 0-1 (test iimf=6100) CYTOLOGY [id number] 13:00:00 Test Item Value Reference Range Comments CYTOLOGY RESULT POINTER (BEAKER) (test See Separate Report jwps=2460) FINE NEEDLE ASPIRATE (FNA) [id number] 13:00:00 Test Item Value Reference Range Comments CYTOLOGY RESULT POINTER (BEAKER) (test See Separate Report eztt=3724) [id number] 07:38:00 Test Item Value Reference Range Comments MAGNESIUM (BEAKER) (test jxkd=669) 1.9 mg/dL 1.6-2.6 BASIC METABOLIC [id number] 07:38:00 Test Item Value Reference Range Comments SODIUM (BEAKER) (test 140 meq/L 136-145 pjea=254) POTASSIUM (BEAKER) (test 3.5 meq/L 3.5-5.1 ubtu=576) CHLORIDE (BEAKER) (test 110 meq/L 98-107 dbvs=868) CO2 (BEAKER) (test 22 meq/L 22-29 gydm=390) BLOOD UREA NITROGEN 8 mg/dL 7-21 (BEAKER) (test ycfl=290) CREATININE (BEAKER) (test 0.66 mg/dL 0.57-1.25 syri=531) GLUCOSE RANDOM (BEAKER) 84 mg/dL 70-105 (test vobt=502) CALCIUM (BEAKER) (test 9.1 mg/dL 8.4-10.2 ykcf=231) EGFR (BEAKER) (test 87 mL/min/1.73 sq m ESTIMATED GFR IS NOT mltk=1617) ACCURATE CREATININE CLEARANCE IN PREDICTING GLOMERULAR FILTRATION RATE. ESTIMATED GFR IS NOT APPLICABLE FOR DIALYSIS PATIENTS. Specimen moderately ictericHEPATIC FUNCTION [id number] 07:38:00 Test Item Value Reference Range Comments TOTAL PROTEIN (BEAKER) (test hplt=090) 6.0 gm/dL 6.0-8.3 ALBUMIN (BEAKER) (test dzuq=7483) 3.2 g/dL 3.5-5.0 BILIRUBIN TOTAL (BEAKER) (test bbrl=866) 7.3 mg/dL 0.2-1.2 BILIRUBIN DIRECT (BEAKER) (test mxeq=099) 4.6 mg/dL 0.1-0.5 ALKALINE PHOSPHATASE (BEAKER) (test pddn=829) 838 U/L 40-150 AST (SGOT) (BEAKER) (test fnmi=578) 89 U/L 5-34 ALT (SGPT) (BEAKER) (test hxln=602) 161 U/L 6-55 Specimen moderately ictericCBC W/PLT COUNT & AUTO [id number] 06: 59:00 Test Item Value Reference Range Comments WHITE BLOOD CELL COUNT (BEAKER) (test rmyg=349) 10.8 K/ L 3.5-10.5 RED BLOOD CELL COUNT (BEAKER) (test qmrx=684) 3.21 M/ L 3.93-5.22 HEMOGLOBIN (BEAKER) (test jnvk=724) 10.3 GM/DL 11.2-15.7 HEMATOCRIT (BEAKER) (test zwgr=336) 31.3 % 34.1-44.9 MEAN CORPUSCULAR VOLUME (BEAKER) (test oiha=086) 97.5 fL 79.4-94.8 MEAN CORPUSCULAR HEMOGLOBIN (BEAKER) (test 32.1 pg 25.6-32.2 mkzi=968) MEAN CORPUSCULAR HEMOGLOBIN CONC (BEAKER) (test 32.9 GM/DL 32.2-35.5 dmtm=462) RED CELL DISTRIBUTION WIDTH (BEAKER) (test 16.7 % 11.7-14.4 ggdj=939) PLATELET COUNT (BEAKER) (test xekm=152) 245 K/CU MM 150-450 MEAN PLATELET VOLUME (BEAKER) (test ifnh=343) 10.5 fL 9.4-12.3 NUCLEATED RED BLOOD CELLS (BEAKER) (test 0 /100 WBC 0-0 ledy=727) NEUTROPHILS RELATIVE PERCENT (BEAKER) (test 65 % ljkh=665) LYMPHOCYTES RELATIVE PERCENT (BEAKER) (test 20 % doqt=509) MONOCYTES RELATIVE PERCENT (BEAKER) (test 7 % ulww=160) EOSINOPHILS RELATIVE PERCENT (BEAKER) (test 2 % lpdq=828) BASOPHILS RELATIVE PERCENT (BEAKER) (test 1 % abak=744) NEUTROPHILS ABSOLUTE COUNT (BEAKER) (test 7.01 K/ L 1.56-6.13 fjce=607) LYMPHOCYTES ABSOLUTE COUNT (BEAKER) (test 2.15 K/ L 1.18-3.74 lopt=986) MONOCYTES ABSOLUTE COUNT (BEAKER) (test 0.71 K/ L 0.24-0.36 utrb=482) EOSINOPHILS ABSOLUTE COUNT (BEAKER) (test 0.26 K/ L 0.04-0.36 adhr=315) BASOPHILS ABSOLUTE COUNT (BEAKER) (test 0.08 K/ L 0.01-0.08 dzhq=595) IMMATURE GRANULOCYTES-RELATIVE PERCENT (BEAKER) 5 % 0-1 (test vvdz=9689) URINE [id number] 06:20:00 Test Item Value Reference Range Comments CULTURE (BEAKER) (test soeh=2538) No growth [id number] 05:46:00 Test Item Value Reference Range Comments MAGNESIUM (BEAKER) (test atgr=669) 2.2 mg/dL 1.6-2.6 BASIC METABOLIC [id number] 05:46:00 Test Item Value Reference Range Comments SODIUM (BEAKER) (test 143 meq/L 136-145 ltdi=676) POTASSIUM (BEAKER) (test 3.9 meq/L 3.5-5.1 kooi=850) CHLORIDE (BEAKER) (test 112 meq/L 98-107 nqhm=539) CO2 (BEAKER) (test 22 meq/L 22-29 xyzc=667) BLOOD UREA NITROGEN 13 mg/dL 7-21 (BEAKER) (test rqsj=774) CREATININE (BEAKER) (test 0.79 mg/dL 0.57-1.25 epzo=134) GLUCOSE RANDOM (BEAKER) 106 mg/dL 70-105 (test annm=852) CALCIUM (BEAKER) (test 8.6 mg/dL 8.4-10.2 nnnz=600) EGFR (BEAKER) (test 71 mL/min/1.73 sq m ESTIMATED GFR IS NOT eoib=0132) ACCURATE CREATININE CLEARANCE IN PREDICTING GLOMERULAR FILTRATION RATE. ESTIMATED GFR IS NOT APPLICABLE FOR DIALYSIS PATIENTS. Specimen moderately ictericHEPATIC FUNCTION [id number] 05:46:00 Test Item Value Reference Range Comments TOTAL PROTEIN (BEAKER) (test yxxr=883) 5.4 gm/dL 6.0-8.3 ALBUMIN (BEAKER) (test erfd=6314) 3.0 g/dL 3.5-5.0 BILIRUBIN TOTAL (BEAKER) (test uelp=478) 9.2 mg/dL 0.2-1.2 BILIRUBIN DIRECT (BEAKER) (test pklq=678) 6.0 mg/dL 0.1-0.5 ALKALINE PHOSPHATASE (BEAKER) (test jcnj=648) 932 U/L 40-150 AST (SGOT) (BEAKER) (test yiqa=403) 189 U/L 5-34 ALT (SGPT) (BEAKER) (test wtkl=071) 213 U/L 6-55 Specimen moderately ictericCBC W/PLT COUNT & AUTO [id number] 04: 26:00 Test Item Value Reference Range Comments WHITE BLOOD CELL COUNT (BEAKER) (test ymrc=409) 9.9 K/ L 3.5-10.5 RED BLOOD CELL COUNT (BEAKER) (test icuv=544) 3.06 M/ L 3.93-5.22 HEMOGLOBIN (BEAKER) (test msps=877) 9.9 GM/DL 11.2-15.7 HEMATOCRIT (BEAKER) (test tqxu=817) 29.2 % 34.1-44.9 MEAN CORPUSCULAR VOLUME (BEAKER) (test fbsi=281) 95.4 fL 79.4-94.8 MEAN CORPUSCULAR HEMOGLOBIN (BEAKER) (test 32.4 pg 25.6-32.2 jbev=896) MEAN CORPUSCULAR HEMOGLOBIN CONC (BEAKER) (test 33.9 GM/DL 32.2-35.5 ofbx=538) RED CELL DISTRIBUTION WIDTH (BEAKER) (test 17.6 % 11.7-14.4 yibh=045) PLATELET COUNT (BEAKER) (test harn=048) 232 K/CU MM 150-450 MEAN PLATELET VOLUME (BEAKER) (test tuxu=503) 10.8 fL 9.4-12.3 NUCLEATED RED BLOOD CELLS (BEAKER) (test 0 /100 WBC 0-0 ufui=130) NEUTROPHILS RELATIVE PERCENT (BEAKER) (test 71 % xwhf=768) LYMPHOCYTES RELATIVE PERCENT (BEAKER) (test 14 % atul=521) MONOCYTES RELATIVE PERCENT (BEAKER) (test 8 % hehu=882) EOSINOPHILS RELATIVE PERCENT (BEAKER) (test 2 % lgly=451) BASOPHILS RELATIVE PERCENT (BEAKER) (test 1 % pqqj=165) NEUTROPHILS ABSOLUTE COUNT (BEAKER) (test 6.98 K/ L 1.56-6.13 numg=043) LYMPHOCYTES ABSOLUTE COUNT (BEAKER) (test 1.41 K/ L 1.18-3.74 njvs=700) MONOCYTES ABSOLUTE COUNT (BEAKER) (test 0.78 K/ L 0.24-0.36 uzzo=029) EOSINOPHILS ABSOLUTE COUNT (BEAKER) (test 0.16 K/ L 0.04-0.36 wgey=916) BASOPHILS ABSOLUTE COUNT (BEAKER) (test 0.07 K/ L 0.01-0.08 jzat=095) IMMATURE GRANULOCYTES-RELATIVE PERCENT (BEAKER) 5 % 0-1 (test vwcb=0551) [place], [id number] 13:28:00Reason for exam:->jaundiceFINAL REPORT ERCP, 02/03/2018 Clinical [...] MDReport Verified Date/Time: 2017 13:28:45 Reading Location: [address] [facility] Reading Room [id number] 07:11:00 Test Item Value Reference Range Comments MAGNESIUM (BEAKER) (test ztlu=073) 1.7 mg/dL 1.6-2.6 BASIC METABOLIC [id number] 07:11:00 Test Item Value Reference Range Comments SODIUM (BEAKER) (test 142 meq/L 136-145 bmph=486) POTASSIUM (BEAKER) (test 3.3 meq/L 3.5-5.1 jlzf=267) CHLORIDE (BEAKER) (test 110 meq/L 98-107 hfmt=870) CO2 (BEAKER) (test 23 meq/L 22-29 zkqv=060) BLOOD UREA NITROGEN 22 mg/dL 7-21 (BEAKER) (test jymr=448) CREATININE (BEAKER) (test 1.06 mg/dL 0.57-1.25 wsyc=886) GLUCOSE RANDOM (BEAKER) 89 mg/dL 70-105 (test udgg=042) CALCIUM (BEAKER) (test 8.6 mg/dL 8.4-10.2 gbhz=684) EGFR (BEAKER) (test 50 mL/min/1.73 sq m ESTIMATED GFR IS NOT cjox=5919) ACCURATE CREATININE CLEARANCE IN PREDICTING GLOMERULAR FILTRATION RATE. ESTIMATED GFR IS NOT APPLICABLE FOR DIALYSIS PATIENTS. Specimen markedly ictericHEPATIC FUNCTION [id number] 07:11:00 Test Item Value Reference Range Comments TOTAL PROTEIN (BEAKER) (test vtyu=264) 5.4 gm/dL 6.0-8.3 ALBUMIN (BEAKER) (test ckjh=4668) 3.0 g/dL 3.5-5.0 BILIRUBIN TOTAL (BEAKER) (test vhnk=928) 18.0 mg/dL 0.2-1.2 BILIRUBIN DIRECT (BEAKER) (test tfmf=095) 11.9 mg/dL 0.1-0.5 ALKALINE PHOSPHATASE (BEAKER) (test nyer=473) 1031 U/L 40-150 AST (SGOT) (BEAKER) (test prak=972) 306 U/L 5-34 ALT (SGPT) (BEAKER) (test xwic=975) 246 U/L 6-55 Specimen markedly [id number] 07:11:00 Test Item Value Reference Range Comments AMYLASE (BEAKER) (test jfpd=351) 202 U/L 25-125 Specimen markedly [id number] 07:11:00 Test Item Value Reference Range Comments LIPASE (BEAKER) (test kqpt=836) 489 U/L 8-78 Specimen markedly ictericCBC W/PLT COUNT & AUTO [id number] 06:42 :00 Test Item Value Reference Range Comments WHITE BLOOD CELL COUNT (BEAKER) (test zozl=982) 8.1 K/ L 3.5-10.5 RED BLOOD CELL COUNT (BEAKER) (test riuz=464) 3.19 M/ L 3.93-5.22 HEMOGLOBIN (BEAKER) (test caor=910) 10.2 GM/DL 11.2-15.7 HEMATOCRIT (BEAKER) (test dbfs=175) 30.2 % 34.1-44.9 MEAN CORPUSCULAR VOLUME (BEAKER) (test sbck=976) 94.7 fL 79.4-94.8 MEAN CORPUSCULAR HEMOGLOBIN (BEAKER) (test 32.0 pg 25.6-32.2 soqk=065) MEAN CORPUSCULAR HEMOGLOBIN CONC (BEAKER) (test 33.8 GM/DL 32.2-35.5 lorb=247) RED CELL DISTRIBUTION WIDTH (BEAKER) (test 17.0 % 11.7-14.4 fjuc=541) PLATELET COUNT (BEAKER) (test zpgp=860) 222 K/CU MM 150-450 MEAN PLATELET VOLUME (BEAKER) (test jxhg=188) 11.0 fL 9.4-12.3 NUCLEATED RED BLOOD CELLS (BEAKER) (test 0 /100 WBC 0-0 woof=794) NEUTROPHILS RELATIVE PERCENT (BEAKER) (test 70 % iefq=001) LYMPHOCYTES RELATIVE PERCENT (BEAKER) (test 14 % foef=048) MONOCYTES RELATIVE PERCENT (BEAKER) (test 8 % zwad=101) EOSINOPHILS RELATIVE PERCENT (BEAKER) (test 2 % sqce=139) BASOPHILS RELATIVE PERCENT (BEAKER) (test 1 % gjkf=917) NEUTROPHILS ABSOLUTE COUNT (BEAKER) (test 5.69 K/ L 1.56-6.13 gjtp=024) LYMPHOCYTES ABSOLUTE COUNT (BEAKER) (test 1.13 K/ L 1.18-3.74 ztzn=400) MONOCYTES ABSOLUTE COUNT (BEAKER) (test 0.67 K/ L 0.24-0.36 goiy=395) EOSINOPHILS ABSOLUTE COUNT (BEAKER) (test 0.17 K/ L 0.04-0.36 wkyj=821) BASOPHILS ABSOLUTE COUNT (BEAKER) (test 0.05 K/ L 0.01-0.08 jdio=001) IMMATURE GRANULOCYTES-RELATIVE PERCENT (BEAKER) 5 % 0-1 (test exzf=0119) URINALYSIS W/ [id number] 20:08:00 Test Item Value Reference Range Comments COLOR (BEAKER) (test mmuq=969) Dark Yellow CLARITY (BEAKER) (test vgxp=005) Hazy SPECIFIC GRAVITY UA (BEAKER) (test 1.014 1.001-1.035 qttb=576) PH UA (BEAKER) (test jtqm=201) 5.5 5.0-8.0 PROTEIN UA (BEAKER) (test jxcu=730) 20 mg/dL Negative GLUCOSE UA (BEAKER) (test iael=574) Negative Negative KETONES UA (BEAKER) (test dych=437) Negative Negative BILIRUBIN UA (BEAKER) (test kced=099) Positive Negative BLOOD UA (BEAKER) (test okqb=589) Trace Negative NITRITE UA (BEAKER) (test szmn=395) Negative Negative LEUKOCYTE ESTERASE UA (BEAKER) (test Large Negative cixb=056) UROBILINOGEN UA (BEAKER) (test pgki=782) 0.2 mg/dL 0.2-1.0 RBC UA (BEAKER) (test vsnb=939) 0 /HPF WBC UA (BEAKER) (test gahd=586) > /HPF SQUAMOUS EPITHELIAL (BEAKER) (test 7 /HPF dlah=387) SOURCE(BEAKER) (test asji=0494) Urine, Clean Catch [id number] 07:14:00 Test Item Value Reference Range Comments MAGNESIUM (BEAKER) (test npfn=121) 1.8 mg/dL 1.6-2.6 BASIC METABOLIC [id number] 07:14:00 Test Item Value Reference Range Comments SODIUM (BEAKER) (test 141 meq/L 136-145 ubqi=098) POTASSIUM (BEAKER) (test 3.6 meq/L 3.5-5.1 pfno=931) CHLORIDE (BEAKER) (test 104 meq/L 98-107 umfc=912) CO2 (BEAKER) (test 21 meq/L 22-29 mtlw=155) BLOOD UREA NITROGEN 31 mg/dL 7-21 (BEAKER) (test mpwe=844) CREATININE (BEAKER) (test 1.57 mg/dL 0.57-1.25 nnpz=898) GLUCOSE RANDOM (BEAKER) 74 mg/dL 70-105 (test fqjz=390) CALCIUM (BEAKER) (test 9.0 mg/dL 8.4-10.2 nobv=851) EGFR (BEAKER) (test 32 mL/min/1.73 sq m ESTIMATED GFR IS NOT prrz=3195) ACCURATE CREATININE CLEARANCE IN PREDICTING GLOMERULAR FILTRATION RATE. ESTIMATED GFR IS NOT APPLICABLE FOR DIALYSIS PATIENTS. Specimen markedly ictericHEPATIC FUNCTION [id number] 07:14:00 Test Item Value Reference Range Comments TOTAL PROTEIN (BEAKER) (test okfq=609) 6.2 gm/dL 6.0-8.3 ALBUMIN (BEAKER) (test ybym=7618) 3.4 g/dL 3.5-5.0 BILIRUBIN TOTAL (BEAKER) (test cyaa=360) 19.3 mg/dL 0.2-1.2 BILIRUBIN DIRECT (BEAKER) (test cczb=113) 13.2 mg/dL 0.1-0.5 ALKALINE PHOSPHATASE (BEAKER) (test thcm=188) 1182 U/L 40-150 AST (SGOT) (BEAKER) (test diza=481) 314 U/L 5-34 ALT (SGPT) (BEAKER) (test azgf=699) 301 U/L 6-55 Specimen markedly ictericCBC W/PLT COUNT & AUTO [id number] 06:43 :00 Test Item Value Reference Range Comments WHITE BLOOD CELL COUNT (BEAKER) (test kczk=773) 11.0 K/ L 3.5-10.5 RED BLOOD CELL COUNT (BEAKER) (test cial=766) 3.71 M/ L 3.93-5.22 HEMOGLOBIN (BEAKER) (test iuzi=986) 11.9 GM/DL 11.2-15.7 HEMATOCRIT (BEAKER) (test lrky=620) 35.2 % 34.1-44.9 MEAN CORPUSCULAR VOLUME (BEAKER) (test rdfa=390) 94.9 fL 79.4-94.8 MEAN CORPUSCULAR HEMOGLOBIN (BEAKER) (test 32.1 pg 25.6-32.2 bmnz=830) MEAN CORPUSCULAR HEMOGLOBIN CONC (BEAKER) (test 33.8 GM/DL 32.2-35.5 tfvw=292) RED CELL DISTRIBUTION WIDTH (BEAKER) (test 16.4 % 11.7-14.4 vsum=588) PLATELET COUNT (BEAKER) (test lkmh=485) 270 K/CU MM 150-450 MEAN PLATELET VOLUME (BEAKER) (test zqha=437) 10.6 fL 9.4-12.3 NUCLEATED RED BLOOD CELLS (BEAKER) (test 0 /100 WBC 0-0 xlju=331) NEUTROPHILS RELATIVE PERCENT (BEAKER) (test 68 % aolp=439) LYMPHOCYTES RELATIVE PERCENT (BEAKER) (test 18 % bjux=170) MONOCYTES RELATIVE PERCENT (BEAKER) (test 8 % frrs=736) EOSINOPHILS RELATIVE PERCENT (BEAKER) (test 1 % pbdd=531) BASOPHILS RELATIVE PERCENT (BEAKER) (test 1 % bkqw=797) NEUTROPHILS ABSOLUTE COUNT (BEAKER) (test 7.50 K/ L 1.56-6.13 ymmh=021) LYMPHOCYTES ABSOLUTE COUNT (BEAKER) (test 1.94 K/ L 1.18-3.74 emop=015) MONOCYTES ABSOLUTE COUNT (BEAKER) (test 0.87 K/ L 0.24-0.36 uqml=272) EOSINOPHILS ABSOLUTE COUNT (BEAKER) (test 0.15 K/ L 0.04-0.36 iefs=067) BASOPHILS ABSOLUTE COUNT (BEAKER) (test 0.09 K/ L 0.01-0.08 jxkm=997) IMMATURE GRANULOCYTES-RELATIVE PERCENT (BEAKER) 4 % 0-1 (test tfqe=5169) BASIC METABOLIC [id number] 16:47:00 Test Item Value Reference Range Comments SODIUM (BEAKER) (test 140 meq/L 136-145 kytw=138) POTASSIUM (BEAKER) (test 3.4 meq/L 3.5-5.1 serg=329) CHLORIDE (BEAKER) (test 97 meq/L 98-107 hsic=685) CO2 (BEAKER) (test 28 meq/L 22-29 hzow=153) BLOOD UREA NITROGEN 32 mg/dL 7-21 (BEAKER) (test hudl=813) CREATININE (BEAKER) (test 2.08 mg/dL 0.57-1.25 djtr=243) GLUCOSE RANDOM (BEAKER) 92 mg/dL 70-105 (test lick=994) CALCIUM (BEAKER) (test 10.1 mg/dL 8.4-10.2 hrub=535) EGFR (BEAKER) (test 23 mL/min/1.73 sq m ESTIMATED GFR IS NOT xgdy=3607) ACCURATE CREATININE CLEARANCE IN PREDICTING GLOMERULAR FILTRATION RATE. ESTIMATED GFR IS NOT APPLICABLE FOR DIALYSIS PATIENTS. Specimen markedly [id number] 16:44:00 Test Item Value Reference Range Comments AMYLASE (BEAKER) (test zldp=290) 186 U/L 25-125 Specimen markedly ictericHEPATIC FUNCTION [id number] 16:44:00 Test Item Value Reference Range Comments TOTAL PROTEIN (BEAKER) (test bord=630) 7.4 gm/dL 6.0-8.3 ALBUMIN (BEAKER) (test viiw=8130) 4.0 g/dL 3.5-5.0 BILIRUBIN TOTAL (BEAKER) (test wanl=827) 20.0 mg/dL 0.2-1.2 BILIRUBIN DIRECT (BEAKER) (test tpcz=147) 13.9 mg/dL 0.1-0.5 ALKALINE PHOSPHATASE (BEAKER) (test zqmc=720) 1372 U/L 40-150 AST (SGOT) (BEAKER) (test rvfp=150) 377 U/L 5-34 ALT (SGPT) (BEAKER) (test zmgr=592) 433 U/L 6-55 Specimen markedly [id number] 16:44:00 Test Item Value Reference Range Comments LIPASE (BEAKER) (test qlay=573) 316 U/L 8-78 Specimen markedly ictericPT/[id number] 16:30:00 Test Item Value Reference Range Comments PROTIME (BEAKER) (test fzcg=465) 14.1 seconds 11.7-14.7 INR (BEAKER) (test dbwb=826) 1.1 <=5.9 PARTIAL THROMBOPLASTIN TIME (BEAKER) (test 27.4 seconds 22.5-36.0 gboa=200) RECOMMENDED COUMADIN/WARFARIN INR THERAPY RANGESSTANDARD DOSE: 2.0 - 3.0 Includes: PROPHYLAXIS forvenous thrombosis, systemic embolization; TREATMENT for venous thrombosis and/or pulmonary embolus.HIGH RISK: Target INR is 2.5-3.5 for patients with mechanical heart valves.CBC W/PLT COUNT & AUTO [id number] 16:24:00 Test Item Value Reference Range Comments WHITE BLOOD CELL COUNT (BEAKER) (test kbnl=476) 14.1 K/ L 3.5-10.5 RED BLOOD CELL COUNT (BEAKER) (test otsi=154) 4.23 M/ L 3.93-5.22 HEMOGLOBIN (BEAKER) (test rieb=965) 13.4 GM/DL 11.2-15.7 HEMATOCRIT (BEAKER) (test blsn=283) 39.8 % 34.1-44.9 MEAN CORPUSCULAR VOLUME (BEAKER) (test mwqh=977) 94.1 fL 79.4-94.8 MEAN CORPUSCULAR HEMOGLOBIN (BEAKER) (test 31.7 pg 25.6-32.2 hikz=804) MEAN CORPUSCULAR HEMOGLOBIN CONC (BEAKER) (test 33.7 GM/DL 32.2-35.5 gvqc=570) RED CELL DISTRIBUTION WIDTH (BEAKER) (test 16.2 % 11.7-14.4 rrli=721) PLATELET COUNT (BEAKER) (test dtog=275) 352 K/CU MM 150-450 MEAN PLATELET VOLUME (BEAKER) (test idug=697) 10.6 fL 9.4-12.3 NUCLEATED RED BLOOD CELLS (BEAKER) (test 0 /100 WBC 0-0 esne=801) NEUTROPHILS RELATIVE PERCENT (BEAKER) (test 75 % qbjk=074) LYMPHOCYTES RELATIVE PERCENT (BEAKER) (test 13 % jurv=212) MONOCYTES RELATIVE PERCENT (BEAKER) (test 8 % jjzf=939) EOSINOPHILS RELATIVE PERCENT (BEAKER) (test 1 % ovui=800) BASOPHILS RELATIVE PERCENT (BEAKER) (test 1 % qmtn=045) NEUTROPHILS ABSOLUTE COUNT (BEAKER) (test 10.52 K/ L 1.56-6.13 qfaq=957) LYMPHOCYTES ABSOLUTE COUNT (BEAKER) (test 1.86 K/ L 1.18-3.74 uvky=416) MONOCYTES ABSOLUTE COUNT (BEAKER) (test 1.06 K/ L 0.24-0.36 yoov=724) EOSINOPHILS ABSOLUTE COUNT (BEAKER) (test 0.11 K/ L 0.04-0.36 tbwi=211) BASOPHILS ABSOLUTE COUNT (BEAKER) (test 0.09 K/ L 0.01-0.08 yudf=249) IMMATURE GRANULOCYTES-RELATIVE PERCENT (BEAKER) 3 % 0-1 (test ceed=4111)
--- NOTE | 2019-06-07 11:30 | EKG ---
Test Date: 2019-06-07 Test Time: 10:19:58 Automotive Maintenance Technician: PAULA MEASUREMENT RESULTS: Intervals: Rate: 108 KS: 120 QRSD: 82 QT: 376 QTc: 503 [place]: P: 77 KS: 120 QRS: -65 T: 79 INTERPRETIVE STATEMENTS: Sinus tachycardia Left anterior fascicular block Septal infarct, age undetermined Abnormal ECG Compared to ECG 02/28/2018 17:49:52 Left anterior fascicular block now present Myocardial infarct finding now present Sinus rhythm no longer present Electronically Signed On 06-07-19 11:29:02 PERSONNEL MANAGER by Tobi Hanley
--- NOTE | 2019-06-07 11:35 | RAD REPORT ---
EXAM DESCRIPTION: RAD - Pelvis - 06/07/2019 11:24 am CLINICAL HISTORY: fall Fall, left hip pain COMPARISON: None FINDINGS: AP pelvis left femur- multiple projections submitted Subcapital fracture proximal left femur with varus angulation noted. No dislocation evident. Blastic rounded metastatic lesion noted right iliac wing. Lucent lesion is seen involving the greater trochan ter of the proximal left femur, also likely metastatic in etiology.
--- NOTE | 2019-06-07 11:39 | RAD REPORT ---
EXAM DESCRIPTION: RAD - Chest Single View - 06/07/2019 11:24 am CLINICAL HISTORY: fall Chest pain. COMPARISON: Chest Single View dated 02/28/2018 FINDINGS: Portable technique limits examination quality. Emphysematous changes are present throughout the lungs. The heart is normal in size. Right-sided port catheter its tip in the SVC.The bones are quite demineralized without visualized fracture.
[2019-06-07] MEDS ORDERED: ONDANSETRON 4 MG/2 ML VIAL ONE (11:40)
[2019-06-07] MEDS ORDERED: NA CHLORIDE 0.9% 1,000 ML ONE ×2 (11:40→13:16)
[2019-06-07] MEDS ORDERED: MORPHINE 2 MG/ML SYR ONE (11:40)
[2019-06-07 11:47] LABS: Absolute Lymphocytes (CBC) 0.6 K/uL (0.7-4.9); Basophils % 0.8 % (0-1.3); Hematocrit 48.1 % (36.0-45.0); Lymphocytes % 0.7 % (15.3-44.8); MPV 9.5 fL (7.6-11.3); RBC Red Blood Cell Count 4.98 M/uL (3.86-4.86)
[2019-06-07] MEDS ORDERED: FENTANYL CITR 100 MCG/2 ML ONE (11:51)
[2019-06-07 11:52] LABS: Protime INR 1.3
[2019-06-07 12:10] LABS: Albumin 2.5 g/dL (3.4-5.0); Bilirubin Direct 0.9 mg/dL (0-0.2); Magnesium 2.2 mg/dL (1.8-2.4); Potassium 3.1 mmol/L (3.5-5.1); Protein, Total 5.9 g/dL (6.4-8.2)
[2019-06-07] MEDS ORDERED: VANCOMYCIN/NS 1 gm 1 GM/250 ML BAG IV ONE (12:15)
[2019-06-07] MEDS ORDERED: CEFEPIME/SWI 2gm 2 GM/20 ML SYR IV ONE (12:15)
[2019-06-07 12:23] LABS: Troponin (Emerg Dept Use Only) 1.5 ng/mL (0.0-0.045)
[2019-06-07 12:25] LABS: Urine Blood 2+ (NEG); Urine Glucose NEGATIVE (NEG); Urine Protein 2+ (NEG); Urine Specific Gravity 1.025 (1.005-1.030); Urine pH 5.5 (5.0-7.0)
[2019-06-07 12:38] LABS: Urine Bacteria LOADED /HPF (<20); Urine RBC <5 /HPF (NONE SEEN)
[2019-06-07 12:39] LABS: Urine Culture Reflex Order NOT NEEDED
[2019-06-07] MEDS ORDERED: TETANUS & DIPHTHERIA TOX,ADULT 0.5 ML VIAL ONE (12:50)
--- NOTE | 2019-06-07 12:59 | RAD REPORT ---
EXAM DESCRIPTION: RAD - Wrist Right 3 View - 06/07/2019 12:47 pm CLINICAL HISTORY: fall Pain COMPARISON: No comparisons FINDINGS: No fracture or dislocation seen. No foreign body or other soft tissue abnormality. IMPRESSION: No acute finding demonstrated.
--- NOTE | 2019-06-07 12:59 | RAD REPORT ---
EXAM DESCRIPTION: RAD - Elbow Right 3 View - 06/07/2019 12:47 pm CLINICAL HISTORY: fall Fall, elbow pain COMPARISON: No comparisons FINDINGS: No acute fracture or dislocation is evident.
[2019-06-07] MEDS ORDERED: KCL 20 MEQ/100 mL IVPB 20 MEQ/100 ML BAG IV ONE (13:16)
[2019-06-07 13:30] LABS: Anisocytosis 1+; Blood Morphology Comment NOTED (NOT SEEN); Platelet Estimate ADEQ; Toxic Granulation 1+
--- NOTE | 2019-06-07 13:32 | RAD REPORT ---
EXAM DESCRIPTION: CT - Head C Spine Cap W Con - 06/07/2019 12:51 pm CLINICAL HISTORY: fall, left hip/abdomen pain, head, neck, chest and abdomen pain, patient fell and was found approximately 16 hours after the event COMPARISON: Chest Abdomen Pelvis W Cont dated 04/23/2019; Chest Abdomen Pelvis W Cont dated 9; Femur Left dated 06/07/2019; Pelvis dated 06/07/2019 TECHNIQUE: Axial [address] head images were obtained. Axial [address] cervical spine images were obtaine d with sagittal and coronal reconstruction images reviewed. During dynamic enhancement of 100mL non-i onic contrast, axial 5 mm images of the chest, abdomen and pelvis were obtained. All CT scans are performed using dose optimization technique as appropriate and may include automated exposure control or mA/KV adjustment according to patient size. FINDINGS: No intracranial hemorrhage, mass or edema. No midline shift or abnormal fluid collection. Moderate severity atrophy and chronic ischemic changes are present. Ventricles are in proportion to v olume loss. Arterial and physiologic calcifications are present. Mastoid air cells and paranasal sinu ses are clear. No skull fracture. CT cervical spine imaging shows normal height. Normal alignment of the vertebrae. No acute fracture c hanges seen. All disc levels except C2-3 and C7-T1 show loss in height. Mild bony foraminal encroachm ent at C5-6. Patient has very dense carotid calcifications. Soft tissues of the right-side neck are m ore prominent but not definitive for hematoma. Central canal detail is inherently limited. Concerns f or traumatic disc herniation or traumatic cord injury can be further addressed with MR imaging. No pulmonary contusion or pneumothorax. No suspicious infiltrate in the lung parenchyma. Esophagus is distended and filled with fluid. Hiatal hernia is present. An aspiration pneumonia is not currently identifiable. A spiculated 13 millimeter mass in the lateral upper right lung field at the aortic arc h level is not substantially different from the January 2019 CT chest. A few additional small areas o f nodularity are present. No mediastinal hematoma and the aorta and pulmonary arteries are unremarkab le. No chest will mass or abnormal axillary finding. No displaced rib fracture or other significant b shaina finding. The liver shows continued progression of intrahepatic metastatic disease since the April 23 imaging . Inferior left lobe lesion was 3.6 cm in maximum dimension in April. That lesion is 4.9 cm on the current study. An anterior central right lobe lesion is 3.0 cm in maximum diameter previously 2.6 cm. Superior right lobe lesion was 3.3 cm in maximum dimension previously. That lesion now measures 4.1 cm. Several new lesions are present. Patient has progressive intrahepatic biliary tree dilatation. Ga llbladder is not identified. Symmetric renal function is present. Free intraperitoneal air is present. A definitive source for the areas not identified. The diaphragm a injury is not seen and the patient does not have a pneumothorax. Stomach small bowel anastomosis an d distal small bowel anastomosis have no gross abnormalities but would be a primary consideration for area of perforation. Free intraperitoneal fluid is present. No abscess or drainable fluid collection s seen. Patient has distended but nondilated small bowel loops. Urinary bladder is contracted around a Senior catheter. Sclerotic or blastic focus in the right ilium at the SI joint unchanged. Multiple partial compression fractures are not clearly different. Left femoral neck fracture is present near the subcapital regio n. No pathologic changes evident. No fracture of the bony pelvis. Findings telephoned to the referring clinician 1:28 p.m. IMPRESSION: Moderate severity atrophy and chronic ischemic change with no acute intracranial finding . Cervical spine degenerative change as detailed. No acute findings confirmed. No pulmonary contusion or pneumothorax. Spiculated right upper lobe mass has not changed. Patient has dilated fluid-filled esophagus. Aspiration pneumonia is not seen. Moderate amount of free intraperitoneal air with the etiology not definitive. Progressive intrahepatic metastatic disease. Progressive biliary tree dilatation may be from obstruct ion by a mass. An obstructing stone may be occult and is not identified. Free intraperitoneal fluid. No abscess or drainable fluid collection. Significant subcutaneous fat fl uid retention seen. Left femoral neck fracture.
[2019-06-07] MEDS ORDERED: PIPER/TAZO/NS 3.375gm 3.375 GM/100 ML BAG ONE (13:59)
--- NOTE | 2019-06-07 16:01 | ER ---
Nurse's Notes [facility] Name: Elena Mir Age: 78 yrs Sex: Female : 1940 Arrival Date: 06/07/2019 Time: 10:15 Bed 19 Private MD: Diagnosis: Displaced fracture of base of neck of left femur;Fall on same level from slipping, tripping and stumbling;Intraperitoneal air and fluid Presentation: 06/07 10:16 Chief complaint: EMS states: Tripped and fell yesterday around 1600 and landed on her ca1 wood floor. Has been on the floor until 09 this morning. C/O left hip pain and bruising on the R elbow and wrist. Coronavirus screen: The patient has NOT traveled to [place] in the past 14 days. The patient has NOT had contact with known and/or suspected case of Coronavirus. Ebola Screen: Patient negative for fever greater than or equal to 101.5 degrees Fahrenheit, and additional compatible Ebola Virus Disease symptoms Patient denies exposure to infectious person. Patient denies travel to an Ebola-affected area in the 21 days before illness onset. No symptoms or risks identified at this time. Initial Sepsis Screen: Does the patient meet any 2 criteria? No. Patient's initial sepsis screen is negative. Does the patient have a suspected source of infection? No. Patient's initial sepsis screen is negative. Risk Assessment: Do you want to hurt yourself or someone else? Patient reports no desire to harm self or others. 10:16 Acuity: FR[place] 2 ca1 10:16 Method Of Arrival: EMS: [facility] ca1 10:16 Mechanism of Injury: Fall from standing position. ca1 10:16 Trauma event details: Injury occurred in the [facility], Injury occurred: at [facility]. Injury occurred: June 06, 2019. 10:21 Onset of symptoms was June 07, 2019. Care prior to arrival: Medication(s) given: ca1 Fentanyl 50 mEqs IV initiated. 20 GA, in the left hand. Trauma Activation: Alert Physician: ED Physician; Name: ; Notified At: ; Arrived At: Physician: General Surgeon; Name: ; Notified At: ; Arrived At: Physician: Radiology; Name: ; Notified At: ; Arrived At: Physician: Respiratory; Name: ; Notified At: ; Arrived At: Physician: Lab; Name: ; Notified At: ; Arrived At: Historical: - Allergies: 10: No Known Allergies; ca1 - Home Meds: : alendronate 70 mg oral tab 1 tab once wkly [Active]; benazepril 20 mg oral tab 1 tab ca1 once daily [Active]; levothyroxine 25 mcg tab 1 tab once daily [Active]; 10: ondansetron HCl 4 mg Oral tab 1 tab as needed [Active]; Zenpep oral oral [Active]; ca1 Lactose Enzyme daily [Active]; Iron CR Oral 65 mg daily [Active]; - PMHx: 10: Hyperlipidemia; Hypertension; Hypothyroidism; pancreatic cancer; ca1 - PSHx: : whipple; Hysterectomy; ca1 10: Cholecystectomy; ca1 - Immunization history:: Adult Immunizations up to date, Last tetanus immunization: unknown, Pneumococcal vaccine is not up to date, Flu vaccine is up to date. - Social history:: Smoking status: Patient denies any tobacco usage or history of. - Immunization history: Last tetanus immunization: unknown. Screenin:20 Abuse screen: Denies threats or abuse. Denies injuries from another. Tuberculosis ca1 screening: No symptoms or risk factors identified. 10:20 Nutritional screening: No deficits noted. ca1 10:20 Fall Risk Fall in past 12 months (25 points). Total Farias Fall Scale indicates Low Risk ca1 Score (25-44 pts). Fall prevention measures have been instituted. Side Rails Up X 2 Frequent Obs/Assesments occuring Family Present and informed to notify staff if they need to leave bedside As available Patient and Family Educated on Fall Prevention Program and strategies. Primary Survey: 10:20 NO uncontrolled hemorrhage observed. ca1 10:20 Breathing/Chest: Respiratory pattern: regular, Chest inspection: symmetrical rise and ca1 fall of the chest. Circulation: Pulses: palpable bilateral radial, brachial, femoral, popliteal, posterior tibial and and dorsalis pedis arteries.. Skin color: pink, Skin temperature: warm, dry. Disability Alert. Exposure/Environment: All clothing and personal items were removed. Forensic evidence collection is not deemed to be indicated at this time. Items placed in patient belonging bag. There is no evidence of uncontrolled external bleeding. Obvious injury(ies) are noted at this time: Bruising on R elbow and R wrist. Possible hip fracture A warming method has been applied: A warm blanket has been provided to the patient. 13:36 Reassessment Airway Airway Patent Breathing/Chest Respiratory pattern Regular ca1 Respiratory effort Spontaneous Unlabored Breath sounds Clear Chest inspection Symmetrical Circulation Heart tones Present Pulses Palpable Color [place] Temperature Warm Dry Disability Alert. Assessment: 10:15 Reassessment: MERLYN Wright at bedside. ca1 10:16 General: Appears in no apparent distress. uncomfortable, Behavior is calm, cooperative, ca1 appropriate for age. Pain: Complains of pain in left hip Pain began 1 day ago. Neuro: Level of Consciousness is awake, alert, obeys commands, Oriented to person, place, time, situation, Appropriate for age. EENT: No signs and/or symptoms were reported regarding the EENT system. Cardiovascular: Heart tones S1 S2 present Capillary refill < 3 seconds Patient's skin is warm and dry. Rhythm is sinus tachycardia. Respiratory: Airway is patent Respiratory effort is even, unlabored, Respiratory pattern is regular, symmetrical, Breath sounds are clear. GI: Abdomen is flat, non-distended, Bowel sounds present X 4 quads. Abd is soft and non tender X 4 quads. : No signs and/or symptoms were reported regarding the genitourinary system. Derm: Skin is fragile, is thin, Skin is pink, warm \T\ dry. Bruising that is bright red, on right arm. Musculoskeletal: Circulation, motion, and sensation intact. Capillary refill < 3 seconds, external rotation of L hip and shortening of L leg. Injury Description: Bruise sustained to right arm is red, was sustained 12-24 hours ago. 10:25 Reassessment: PT to CT. ca1 11:35 Reassessment: Patient appears in no apparent distress at this time. Patient and/or ca1 family updated on plan of care and expected duration. Pain level reassessed. Patient is alert, oriented x 3, equal unlabored respirations, skin warm/dry/pink. 12:34 Reassessment: Patient appears in no apparent distress at this time. Patient and/or ca1 family updated on plan of care and expected duration. Pain level reassessed. Patient is alert, oriented x 3, equal unlabored respirations, skin warm/dry/pink. Family at bedside. 13:36 Reassessment: Patient appears in no apparent distress at this time. Patient and/or ca1 family updated on plan of care and expected duration. Pain level reassessed. Patient is alert, oriented x 3, equal unlabored respirations, skin warm/dry/pink. 14:42 Reassessment: Patient appears in no apparent distress at this time. Patient and/or ca1 family updated on plan of care and expected duration. Pain level reassessed. Patient is alert, oriented x 3, equal unlabored respirations, skin warm/dry/pink. 15:12 Reassessment: Dr. Shankar at bedside. ca1 15:36 Reassessment: Patient appears in no apparent distress at this time. Patient and/or ca1 family updated on plan of care and expected duration. Pain level reassessed. Patient is alert, oriented x 3, equal unlabored respirations, skin warm/dry/pink. 16:30 Reassessment: Patient appears in no apparent distress at this time. Patient is alert, ca1 oriented x 3, equal unlabored respirations, skin warm/dry/pink. Vital Signs: 10:21 BP 96 / 64; Pulse 106; Resp 19 S; Temp 97.8(O); Pulse Ox 91% on R/A; Weight 43.09 kg ca1 (R); Height 5 ft. 3 in. (160.02 cm) (R); Pain 10/10; 11:38 BP 91 / 54; Pulse 95; Resp 20 S; Pulse Ox 99% on R/A; ca1 12:05 BP 98 / 61; Pulse 105; Resp 17 S; Pulse Ox 97% on R/A; ca1 12:30 BP 104 / 64; Pulse 119; Resp 20; Pulse Ox 99% on R/A; ca1 13:30 BP 94 / 63; Pulse 119; Resp 20; Pulse Ox 97% on R/A; ca1 14:42 BP 86 / 51; Pulse 110; Resp 24; Pulse Ox 98% on R/A; ca1 15:00 BP 90 / 52; Pulse 108; Resp 24; Pulse Ox 97% on R/A; ca1 15:36 BP 89 / 56; Pulse 108; Resp 23 S; Pulse Ox 97% on R/A; ca1 15:53 BP 93 / 55; Pulse 112; Resp 24; Pulse Ox 96% on R/A; ca1 16:17 BP 95 / 57; Pulse 111; Resp 23; Pulse Ox 96% on R/A; ca1 16:30 BP 100 / 59; Pulse 115; Resp 24; Pulse Ox 96% on R/A; ca1 17:33 BP 99 / 55; Pulse 105; Resp 18 S; Pulse Ox 95% on R/A; ca1 10:21 Body Mass Index 16.83 (43.09 kg, 160.02 cm) ca1 Dony Coma Score: 10:20 Eye Response: spontaneous(4). Verbal Response: oriented(5). Motor Response: obeys ca1 commands(6). Total: 15. Trauma Score (Adult): 10:20 Eye Response: spontaneous(1); Verbal Response: oriented(1); Motor Response: obeys ca1 commands(2); Systolic BP: > 89 mm Hg(4); Respiratory Rate: 10 to 29 per min(4); Dony Score: 15; Trauma Score: 12 ED Course: 10:15 Patient arrived in ED. tyler 10:15 Kartik Woodson MD is Attending Physician. tyler 10:16 Roxanna Sandoval, BINA is Primary Nurse. ca1 10:17 Kartik Archer PA is PHCP. cp 10:19 Triage completed. ca1 10:20 Patient has correct armband on for positive identification. Placed in gown. Bed in low ca1 position. Call light in reach. Side rails up X2. Adult w/ patient. Patient maintains SpO2 saturation greater than 95% on room air. 10:20 glass bead maker on. Pulse ox on. NIBP on. Warm blanket given. ca1 10:20 Patient maintains SpO2 saturation greater than 95% on room air. ca1 10:20 Thermoregulation: warm blanket given to patient. ca1 10:20 Maintain EMS IV. Dressing intact. Good blood return noted. Site clean \T\ dry. Gauge \T\ ca 1 site: [address] 10:31 Arm band placed on right wrist. EKG completed in triage. Results shown to MD. ca1 10:52 EKG done, by senior technical project manager. reviewed by Kartik ZULETA. at1 11:25 XRAY Chest (1 view) In Process Unspecified. EDMS 11:25 Pelvis XRAY In Process Unspecified. EDMS 11:25 Femur Left XRAY In Process Unspecified. EDMS 11:35 No provider procedures requiring assistance completed. Initial lab(s) drawn, by wi, ca1 sent to lab. Inserted saline lock: 20 gauge in right antecubital area, using aseptic technique. Blood collected. 12:00 Urine collected: Senior catheter specimen, alfredo colored. dh3 12:02 Senior cath inserted, using sterile technique, 18 Fr., by me, balloon inflated, to ca1 gravity drainage. 12:30 First set of blood cultures drawn by me. ca1 12:49 XRAY Wrist RIGHT 3 view In Process Unspecified. EDMS 12:49 XRAY Elbow RIGHT 3 view In Process Unspecified. EDMS 12:52 CT Traumagram (Head C Spine CAP W Con) In Process Unspecified. EDMS 13:15 Second set of blood cultures drawn by me, by venipuncture 23G to right forearm. dh3 13:30 Wound care: to skin tear of right elbow cleaned with chlorhexidine and normal saline dh3 dressed with triple antibiotic, non-adherent gauze and kerlix. 13:[address] Light to Kartik Archer. dh4 15:48 called the OR and spoke to Nae CURRAN to notify Dr. Light the patient and family eb are declining surgery at this time. 15:57 Sandeep Butler MD is Hospitalizing Provider. cp 16:21 Sandeep Butler MD is Referral Physician. cp 16:26 Patient admitted, IV remains in place. ca1 Administered Medications: 11:40 Drug: NS 0.9% 250 ml Route: IV; Rate: bolus; Site: left hand; ca1 12:20 Follow up: Response: No adverse reaction; IV Status: Completed infusion ca1 11:41 Not Given (Physician Discretion): morphine 2 mg IVP once; (PAIN>8) RASS on ADMN: cp Combtv4, Very Agttd3, Agttd2, Rstlss1, AlertClm0, Drwsy-1, LtSdtn-2, ModSdtn-3, DpSdtn-4, UnArsble-5 x2 11:42 Drug: Zofran (Ondansetron) 4 mg Route: IVP; Site: left hand; ca1 13:41 Follow up: Response: No adverse reaction; Nausea is decreased ca1 11:45 Drug: fentaNYL (PF) 25 mcg Route: IVP; Site: left hand; ca1 12:30 Follow up: Response: No adverse reaction; Pain is decreased; RASS: Alert and Calm (0) ca1 12:10 Drug: NS 0.9% (30 ml/kg) 30 ml/kg Route: IV; Rate: bolus; Site: left hand; ca1 13:10 Follow up: Response: No adverse reaction; IV Status: Completed infusion ca1 13:00 Drug: Potassium Chloride 20 mEq Route: IV; Rate: calculated rate; Site: left hand; ca1 16:00 Follow up: Response: No adverse reaction; IV Status: Completed infusion ca1 13:04 Drug: Tetanus-Diphtheria Toxoid Adult 0.5 ml {[employer] Worker: [employer]. Exp: ca1 09/13/2020. Lot #: [id number]. } Route: IM; Site: left deltoid; 13:40 Follow up: Response: No adverse reaction ca1 13:18 Drug: Cefepime 2 grams Route: IVPB; Rate: 200 ml/hr; Infused Over: 30 mins; Site: left ca1 antecubital; 13:34 Follow up: Response: No adverse reaction; IV Status: Completed infusion ca1 13:35 Drug: NS 0.9% 1000 ml Route: IV; Rate: 75 ml/hr; Site: left antecubital; ca1 16:19 Follow up: Response: No adverse reaction; IV Status: Infusion continued upon admission ca1 13:35 Drug: vancoMYCIN 1 grams Route: IVPB; Infused Over: 2 hrs; Site: left antecubital; ca1 15:34 Follow up: Response: No adverse reaction; IV Status: Completed infusion ca1 15:05 Drug: fentaNYL (PF) 25 mcg {Note: RASS - 0.} Route: IVP; Site: left antecubital; ca1 16:18 Follow up: Response: No adverse reaction; Pain is decreased; RASS: Alert and Calm (0) ca1 15:35 Drug: Zosyn 3.375 grams Route: IVPB; Infused Over: 60 mins; Site: left antecubital; ca1 17:29 Follow up: Response: No adverse reaction; IV Status: Completed infusion ca1 Output: 13:55 Urine: 230ml (Senior); Total: 230ml. ca1 16:20 Urine: 400ml (Senior); Total: 630ml. ca1 Outcome: 16:01 Decision to Hospitalize by Provider. cp 16:22 Discharge ordered by MD. cp 16:24 Patient's length of stay in the Emergency Department was greater than 2 hours. other ca1 co-morbidityPatient's length of stay extended due to 17:17 Admitted to Tele accompanied by tech, family with patient, via stretcher, room 431, ca1 with chart, Other On hospice care Report called to BINA Razo 17:17 Condition: stable 17:17 Instructed on the need for admit. 17:44 Patient left the ED. ss Addendum: 06/11/2019 10:54 Addendum: Culture Results: Positive urine culture. Positive blood culture. pt was i w admitted to hospital under Dr. butler's care, is on hospice and receiving palliative care only Patient was not prescribed antibiotics at discharge. Report given to JAZZY for further evaluation and then to regulatory scientist for follow up with patient. Signatures: Dispatcher [employer] EDMS Kartik Woodson MD MD cha Williams, Irene, RN RN Mena Price RN RN ss Nicole Martel, salt manager EKG Tat1 Kartik Archer PA PA cp Herrera, Tere 3 Shawna Gray Cheryl, RN RN ca1 Hira Lassiter 4 Corrections: (The following items were deleted from the chart) 06/07 10:22 10:16 Chief complaint: EMS states: Fell yesterday around 1600 and landed on her wood ca1 floor. Has been on the floor until 09 this morning. C/O left hip pain and bruising on the R elbow and wrist. ca1 10:41 10:21 43.09 kg Reported; Height 5 ft. 3 in. Reported; BMI: 16.8; Pain 10/10; ca1 ca1 13:35 13:30 Cefepime 2 grams IVPB at 200 ml/hr in left antecubital over 30 mins ca1 ca1 16:31 16:30 Discharged to home ambulatory, with family, [facility] 16:31 16:30 Condition: good [facility] 16:31 16:30 Discharge instructions given to patient, family, Instructed on discharge ss instructions, follow up and referral plans. medication usage, Demonstrated understanding of instructions, follow-up care, medications, ss
--- NOTE | 2019-06-07 16:02 | EDPHYS ---
Physician Documentation [facility] Name: Elena Mir Age: 78 yrs Sex: Female : 1940 Arrival Date: 06/07/2019 Time: 10:15 Bed 19 Private MD: BRUNO Physician Kartik Woodson HPI: 06/07 10:30 This 78 yrs old Female presents to ER via EMS with complaints of Fall Injury. cp 10:30 Details of fall: The patient fell from an upright position, while walking. cp 10:30 Onset: The symptoms/episode began/occurred yesterday, approximately 1600. cp 10:30 Associated injuries: The patient sustained left hip, decreased range of motion, cp deformity, painful injury, right elbow and right wrist, abrasion, ecchymosis. Patient denies LOC. Was found by family this morning on ground and EMS was called. Historical: - Allergies: 10:28 No Known Allergies; ca1 - Home Meds: 10:28 alendronate 70 mg oral tab 1 tab once wkly [Active]; benazepril 20 mg oral tab 1 tab ca1 once daily [Active]; levothyroxine 25 mcg tab 1 tab once daily [Active]; 10:31 ondansetron HCl 4 mg Oral tab 1 tab as needed [Active]; Zenpep oral oral [Active]; ca1 Lactose Enzyme daily [Active]; Iron CR Oral 65 mg daily [Active]; - PMHx: 10:28 Hyperlipidemia; Hypertension; Hypothyroidism; pancreatic cancer; ca1 - PSHx: 10:28 whipple; Hysterectomy; ca1 10:31 Cholecystectomy; ca1 - Immunization history:: Adult Immunizations up to date, Last tetanus immunization: unknown, Pneumococcal vaccine is not up to date, Flu vaccine is up to date. - Social history:: Smoking status: Patient denies any tobacco usage or history of. - Immunization history: Last tetanus immunization: unknown. ROS: 10:35 Constitutional: Negative for body aches, chills, fever, poor PO intake. cp 10:35 Eyes: Negative for injury, pain, redness, and discharge. cp 10:35 ENT: Negative for drainage from ear(s), ear pain, sore throat, difficulty swallowing, difficulty handling secretions. 10:35 Neck: Negative for pain with movement, pain at rest, stiffness. 10:35 Cardiovascular: Negative for chest pain, edema. 10:35 Respiratory: Negative for cough, shortness of breath, wheezing. 10:35 Abdomen/GI: Negative for abdominal pain, vomiting, diarrhea, constipation, black/tarry stool, rectal bleeding. 10:35 Back: Negative for pain at rest. 10:35 MS/extremity: Positive for injury or acute deformity, decreased range of motion, pain, of the left hip. 10:35 Skin: Negative for cellulitis, rash. 10:35 Neuro: Negative for altered mental status, loss of consciousness, syncope. 10:35 All other systems are negative. Exam: 10:45 Constitutional: The patient appears in no acute distress, alert, awake, cp non-diaphoretic, non-toxic, well developed, frail, uncomfortable. 10:45 Head/Face: Normocephalic, atraumatic. cp 10:45 Eyes: Pupils equal round and reactive to light, extra-ocular motions intact. Lids and lashes normal. Conjunctiva and sclera are non-icteric and not injected. Cornea within normal limits. Periorbital areas with no swelling, redness, or edema. 10:45 ENT: External ear(s): are unremarkable, Ear canal(s): are normal, clear, TM's: dullness, bilaterally, Nose: is normal, Mouth: Lips: dry, Oral mucosa: dry, Posterior pharynx: Airway: no evidence of obstruction, patent. 10:45 Neck: C-spine: vertebral tenderness, is not appreciated, crepitus, is not appreciated, ROM/movement: Meningeal signs: are not present, nuchal rigidity, is not appreciated. 10:45 Chest/axilla: Inspection: normal, Palpation: is normal, no crepitus, no tenderness. 10:45 Cardiovascular: Rate: tachycardic, Rhythm: regular, Edema: is not appreciated, JVD: is not appreciated. 10:45 Respiratory: the patient does not display signs of respiratory distress, Respirations: labored breathing, is not present, intercostal retractions, are absent, shallow respirations, that is mild, Breath sounds: are clear throughout, no decreased breath sounds, no stridor, no wheezing. 10:45 Abdomen/GI: Inspection: abdomen appears normal, Bowel sounds: active, all quadrants, Palpation: soft, in all quadrants, moderate abdominal tenderness, in the right lower quadrant and left lower quadrant, voluntary guarding, is elicited in the right lower quadrant and left lower quadrant. 10:45 Musculoskeletal/extremity: Joints: the left hip displays deformity, limited range of motion, pain at rest, tenderness, the right elbow displays tenderness, the right wristdisplays tenderness. 10:45 Skin: cellulitis, is not appreciated, injury, abrasion(s), small abrasion noted, of the right elbow, no rash present. 10:45 Neuro: Orientation: to person, place \T\ time. Mentation: is normal, Sensation: is normal. 10:48 ECG was reviewed by the Attending Physician. cp Vital Signs: 10:21 BP 96 / 64; Pulse 106; Resp 19 S; Temp 97.8(O); Pulse Ox 91% on R/A; Weight 43.09 kg ca1 (R); Height 5 ft. 3 in. (160.02 cm) (R); Pain 10/10; 11:38 BP 91 / 54; Pulse 95; Resp 20 S; Pulse Ox 99% on R/A; ca1 12:05 BP 98 / 61; Pulse 105; Resp 17 S; Pulse Ox 97% on R/A; ca1 12:30 BP 104 / 64; Pulse 119; Resp 20; Pulse Ox 99% on R/A; ca1 13:30 BP 94 / 63; Pulse 119; Resp 20; Pulse Ox 97% on R/A; ca1 14:42 BP 86 / 51; Pulse 110; Resp 24; Pulse Ox 98% on R/A; ca1 15:00 BP 90 / 52; Pulse 108; Resp 24; Pulse Ox 97% on R/A; ca1 15:36 BP 89 / 56; Pulse 108; Resp 23 S; Pulse Ox 97% on R/A; ca1 15:53 BP 93 / 55; Pulse 112; Resp 24; Pulse Ox 96% on R/A; ca1 16:17 BP 95 / 57; Pulse 111; Resp 23; Pulse Ox 96% on R/A; ca1 16:30 BP 100 / 59; Pulse 115; Resp 24; Pulse Ox 96% on R/A; ca1 17:33 BP 99 / 55; Pulse 105; Resp 18 S; Pulse Ox 95% on R/A; ca1 10:21 Body Mass Index 16.83 (43.09 kg, 160.02 cm) ca1 Dony Coma Score: 10:20 Eye Response: spontaneous(4). Verbal Response: oriented(5). Motor Response: obeys ca1 commands(6). Total: 15. Trauma Score (Adult): 10:20 Eye Response: spontaneous(1); Verbal Response: oriented(1); Motor Response: obeys ca1 commands(2); Systolic BP: > 89 mm Hg(4); Respiratory Rate: 10 to 29 per min(4); [place] Score: 15; Trauma Score: 12 MDM: 10:15 Patient medically screened. tyler 10:30 Differential diagnosis: closed head injury, fracture, laceration, multiple trauma. cp 13:45 Physician consultation: Rahul Light MD was called at 13:40, was contacted at 13:40, regarding consult, patient's condition, and will see patient in ED. 13:45 Data reviewed: vital signs, nurses notes, lab test result(s), EKG, radiologic studies, cp CT scan, plain films, I have discussed the patient's presentation/case with the attending Emergency Department Physician;. 13:45 Test interpretation: by ED physician or midlevel provider: ECG. cp 15:10 Physician consultation: Rahul Light MD in the emergency department to see patient at cp 15:10. 16:15 Physician consultation: Sandeep Villareal MD was called at 16:05, was contacted at 16:05, regarding admission, hospital hospice, patient's condition. 06/07 10:20 Order name: Basic Metabolic Panel; Complete Time: 12:26 06/07 12:26 Interpretation: Normal except: K 3.1; GLUC 122; BUN 22; GFR 63. 06/07 10:20 Order name: CBC with Diff; Complete Time: 13:34 06/07 12:31 Interpretation: Reviewed. 06/07 10:20 Order name: LFT's; Complete Time: 12:26 06/07 12:26 Interpretation: Normal except: AST 65; ALK 532; BILIT 2.0; BILID 0.9; TP 5.9; ALB 2.5; cp A/G 0.7. 06/07 10:20 Order name: Magnesium; Complete Time: 12:26 cp 06/07 10:20 Order name: NT PRO-BNP; Complete Time: 12:26 cp 06/07 12:26 Interpretation: Abnormal: NT PRO-BNP 87459. cp 06/07 10:20 Order name: PT-INR; Complete Time: 12:26 cp 06/07 15:09 Interpretation: Abnormal: PT 15.2. cp 06/07 10:20 Order name: Troponin (emerg Dept Use Only); Complete Time: 12:26 cp 06/07 12:27 Interpretation: Abnormal: TROPED 1.50. cp 06/07 10:20 Order name: CPK; Complete Time: 12:26 cp 06/07 11:58 Order name: Manual Differential; Complete Time: 13:34 EDMS 06/07 12:02 Order name: Blood Culture Adult (2) cp 06/07 12:02 Order name: Lactate; Complete Time: 13:24 cp 06/07 13:25 Interpretation: Within normal limits: LAC 1.5. cp 06/07 12:02 Order name: Urine Microscopic Only; Complete Time: 13:24 cp 06/07 13:24 Interpretation: Normal except: UWBC 10-20; UBACT LOADED. 06/07 12:02 Order name: Urine Culture 06/07 12:02 Order name: Procalcitonin; Complete Time: 13:34 cp 06/07 10:20 Order name: XRAY Chest (1 view); Complete Time: 11:57 cp 06/07 11:57 Interpretation: Report review. 06/07 10:20 Order name: Pelvis XRAY; Complete Time: 11:49 cp 06/07 11:50 Interpretation: Report reviewed. 06/07 10:20 Order name: Femur Left XRAY cp 06/07 10:34 Order name: CT Traumagram (Head C Spine CAP W Con); Complete Time: 15:08 cp 06/07 15:10 Interpretation: Report reviewed. 06/07 11:49 Order name: XRAY Wrist RIGHT 3 view; Complete Time: 13:24 cp 06/07 13:24 Interpretation: Report reviewed. cp 06/07 11:49 Order name: XRAY Elbow RIGHT 3 view; Complete Time: 13:24 cp 06/07 13:24 Interpretation: Report reviewed. cp 06/07 12:16 Order name: Urine Dipstick--Ancillary (enter results); Complete Time: 12:31 eb 06/07 12:31 Interpretation: Normal except: UBLD 2+; UPROT 2+. cp 06/07 10:20 Order name: EKG; Complete Time: 10:21 cp 06/07 10:20 Order name: Cardiac monitoring; Complete Time: 10:47 cp 06/07 10:20 Order name: EKG - Nurse/Tech; Complete Time: 10:47 cp 06/07 10:20 Order name: IV Saline Lock; Complete Time: 10:47 cp 06/07 10:20 Order name: Labs collected and sent; Complete Time: 10:47 cp 06/07 10:20 Order name: O2 Per Protocol; Complete Time: 10:47 cp 06/07 10:20 Order name: O2 Sat Monitoring; Complete Time: 10:47 cp 06/07 10:20 Order name: Senior; Complete Time: 13:40 cp 06/07 11:49 Order name: Wound dressing: right elbow; Complete Time: 13:35 cp 06/07 12:02 Order name: Urine Dipstick-Ancillary (obtain specimen); Complete Time: 12:07 cp EC:48 Rate is 108 beats/min. Rhythm is regular. MI interval is normal. QRS interval is cp normal. QT interval is normal. T waves are Inverted in lead aVL. Interpreted by me. Reviewed by me. Administered Medications: 11:40 Drug: NS 0.9% 250 ml Route: IV; Rate: bolus; Site: left hand; ca1 12:20 Follow up: Response: No adverse reaction; IV Status: Completed infusion ca1 11:41 Not Given (Physician Discretion): morphine 2 mg IVP once; (PAIN>8) RASS on ADMN: cp Combtv4, Very Agttd3, Agttd2, Rstlss1, AlertClm0, Drwsy-1, LtSdtn-2, ModSdtn-3, DpSdtn-4, UnArsble-5 x2 11:42 Drug: Zofran (Ondansetron) 4 mg Route: IVP; Site: left hand; ca1 13:41 Follow up: Response: No adverse reaction; Nausea is decreased ca1 11:45 Drug: fentaNYL (PF) 25 mcg Route: IVP; Site: left hand; ca1 12:30 Follow up: Response: No adverse reaction; Pain is decreased; RASS: Alert and Calm (0) ca1 12:10 Drug: NS 0.9% (30 ml/kg) 30 ml/kg Route: IV; Rate: bolus; Site: left hand; ca1 13:10 Follow up: Response: No adverse reaction; IV Status: Completed infusion ca1 13:00 Drug: Potassium Chloride 20 mEq Route: IV; Rate: calculated rate; Site: left hand; ca1 16:00 Follow up: Response: No adverse reaction; IV Status: Completed infusion ca1 13:04 Drug: Tetanus-Diphtheria Toxoid Adult 0.5 ml {Metalizing Supervisor: [employer]. Exp: ca1 09/13/2020. Lot #: [id number]. } Route: IM; Site: left deltoid; 13:40 Follow up: Response: No adverse reaction ca1 13:18 Drug: Cefepime 2 grams Route: IVPB; Rate: 200 ml/hr; Infused Over: 30 mins; Site: left ca1 antecubital; 13:34 Follow up: Response: No adverse reaction; IV Status: Completed infusion ca1 13:35 Drug: NS 0.9% 1000 ml Route: IV; Rate: 75 ml/hr; Site: left antecubital; ca1 16:19 Follow up: Response: No adverse reaction; IV Status: Infusion continued upon admission ca1 13:35 Drug: vancoMYCIN 1 grams Route: IVPB; Infused Over: 2 hrs; Site: left antecubital; ca1 15:34 Follow up: Response: No adverse reaction; IV Status: Completed infusion ca1 15:05 Drug: fentaNYL (PF) 25 mcg {Note: RASS - 0.} Route: IVP; Site: left antecubital; ca1 16:18 Follow up: Response: No adverse reaction; Pain is decreased; RASS: Alert and Calm (0) ca1 15:35 Drug: Zosyn 3.375 grams Route: IVPB; Infused Over: 60 mins; Site: left antecubital; ca1 17:29 Follow up: Response: No adverse reaction; IV Status: Completed infusion ca1 Disposition: 06/07/19 16:22 Discharged to Other. Impression: Displaced fracture of base of neck of left femur, Fall on same level from slipping, tripping and stumbling, Intraperitoneal air and fluid. - Condition is Serious. - Medication Reconciliation Form, Thank You Letter, Antibiotic Education, Prescription Opioid Use, SBAR form form. - Follow up: Sandeep Villareal MD; When: Upon discharge from the Emergency Department; Reason: Recheck today's complaints. - Problem is new. - Symptoms have improved. Addendum: 06/09/2019 17:49 Co-signature as Attending Physician, Kartik Woodson MD I agree with the assessment and c ladd plan of care. Signatures: Dispatcher [employer] EDKartik Miramontes MD MD cha Smirch, Shelby, RN RN ss Kartik Archer PA PA cp Roxanna Sandoval RN RN ca1 Corrections: (The following items were deleted from the chart) 06/07 16:21 16:01 Hospitalization Ordered by Sandeep Villareal MD for Inpatient Admission. Preliminary cp diagnosis is Fall on same level from slipping, tripping and stumbling; Displaced fracture of base of neck of left femur; Intraperitoneal air and fluid. Bed requested for Telemetry/MedSurg (Inpatient). Status is Inpatient Admission. Condition is Stable. Problem is new. Symptoms have improved. cp 17:44 16:22 06/07/2019 16:22 Discharged to Other. Impression: Displaced fracture of base of ss neck of left femur; Fall on same level from slipping, tripping and stumbling; Intraperitoneal air and fluid. Condition is Serious. Forms are Medication Reconciliation Form, Thank You Letter, Antibiotic Education, Prescription Opioid Use. Follow up: Sandeep Villareal; When: Upon discharge from the Emergency Department; Reason: Recheck today's complaints. Problem is new. Symptoms have improved. cp
[2019-06-07] MEDS ORDERED: MORPHINE 2 MG/ML SYR IV PRN (16:05)
[2019-06-07] MEDS ORDERED: ONDANSETRON 4 MG/2 ML VIAL IV PRN (16:05)
[2019-06-07] MEDS ORDERED: LORazepam 2 MG/ML VIAL IV PRN (16:07)
[2019-06-07] MEDS ORDERED: SCOPOLAMINE HYDROBROMIDE PATCH TD ONE (16:15)
[2019-06-07] MEDS ORDERED: D5 0.45 NS 1,000 ML IV SCH (17:00)
[2019-06-07 17:58] VITALS: TEMP 97.8
[2019-06-07 18:23] VITALS: BP 99/55; O2SAT 95
--- NOTE | 2019-06-07 21:38 | CON ---
Date of Consultation: 06/07/2019 Brief History Of Present Illness: Patient is a 78-year-old female who presents to the ER a fter a fall approximately over 24 hours ago. She fell from an upright position while walking. She h ad some left hip pain, decreased range of motion deformity, painful at the right elbow, right wrist, left hip area abrasions with some bruising as well. She denies any LOC and she was found on the grou nd and EMS was called at that time. Past Medical History: Significant for hyperlipidemia, hypertension, hyperthyroidism, and metastatic pancreatic cancer, currently receiving chemotherapy regimen uncertain, but she is actively receiving chemotherapy prior to this admission. Past Surgical History: Includes a Whipple approximately 2 years ago, hysterectomy, cholecystectomy. Allergies: NO KNOWN DRUG ALLERGIES. Home Medications: Alendronate, benazepril, levothyroxine, Zofran, Zenpep, lactulose, iron. Review of Systems: She has some abdominal pain and hip pain predominantly on the left. Physical Examination: General: At the time of my examination, she is awake, alert, and oriented. Psychiatric: She is appropriate, conversive. She appears generally frail, thin, and cachectic. HEENT: Otherwise normocephalic. Her sclerae were anicteric. Mucous membranes are moist. Oropharyn x clear. Chest: Normal expansion, excursion. Cardiovascular: Regular rate and rhythm. Pulmonary: Clear to auscultation bilaterally. Abdomen: Soft. Tympanic. Global mild tenderness to palpation. Pelvis is stable. Extremities: She has a rotated left lower extremity and tenderness to the left hip and lower extremi ty area. She has some tenderness in the right hand as well as right elbow. Laboratory Data: Revealed a white blood cell count of 90.0, hemoglobin is 15.3, hematocrit 48.1, akanksha telet count is 175, neutrophils are 97%. Her coags showed a PT 15.2, INR 1.3. Chemistry showed a so dium 142, potassium 3.1, chloride 102, carbon dioxide 26, BUN 20, creatinine 0.8, glucose is 122, lac tic acid 1.5, magnesium 2.2, total bilirubin 2.0, direct component 0.9, AST 65, ALT 54, alkaline phos phatase is 532, creatine kinase 231. Troponin is 1.5. Procalcitonin 2.92. Her UA was loaded with b acteria. She had imaging performed which included a CT traumagram of the head, cervical spine, chest , abdomen, pelvis, officially read impression was moderately severe atrophic and chronic ischemic tyler nges with no acute intracranial finding. Cervical spine degenerative changes. No acute findings con firmed. No pulmonary contusion, pneumothorax, spiculated right upper lobe mass is not changed. Annie ent has dilated fluid-filled esophagus, aspiration pneumonia not seen. Moderate amount of free intra peritoneal air with etiology not definitive. Progressive intrahepatic metastatic disease, progressiv e biliary tree dilatation may be from obstruction and mass obstructing stone, may be occult not ident ified, free intraperitoneal air. No abscess or drainable fluid collection. Significant subcutaneous fat fluid retention is seen. A left femoral neck fracture also noted. Assessment And Plan: This is a 78-year-old female with free air and a fracture as described. 1.IV fluid hydration. 2.Pain management. 3.Medical management. 4.I have explained the risks, benefits, and alternatives of laparoscopic and possible open lap explo ration of the abdomen. However, the patient and the family have discussed that she has metastatic pa ncreatic cancer and as such, would not opt for any surgical intervention regardless of the necessity at this point and patient would rather be placed on hospice as such Dr. Villareal was consulted by report , I have been told that the patient and family have requested a hospice consultation to be placed and palliative care/hospice. Therefore, I will sign off for now. I will be available for future need. Should the patient and her family decide they require or request surgical consultation at that time. I have explained risks, benefits, and alternatives of this plan as well. Patient agrees to proceed as indicated. Thank you for this interesting consult. DEE/VIKA Voice ID: [id number] Report ID: [id number]
--- NOTE | 2019-06-10 10:10 | RAD REPORT ---
EXAM DESCRIPTION: RAD - Femur Left - 06/07/2019 11:24 am CLINICAL HISTORY: Fall Fall, left hip pain COMPARISON: None FINDINGS: AP pelvis left femur- multiple projections submitted Subcapital fracture proximal left femur with varus angulation noted. No dislocation evident. Blastic rounded metastatic lesion noted right iliac wing. Lucent lesion is seen involving the greater trochan ter of the proximal left femur, also likely metastatic in etiology.
== END 2019-06-07 17:44 | disposition home or self-care (01) ==
LOC: ER 10:12 → UNDOADMIN 16:03 → ERHOLD 16:03 → ER 17:44
DX: S72.042A Displaced fracture of base of neck of left femur, initial encounter for closed fracture (principal); K66.8 Other specified disorders of peritoneum; M25.521 Pain in right elbow; W01.0XXA Fall on same level from slipping, tripping and stumbling without subsequent striking against object, initial encounter; Y93.9 Activity, unspecified; Y92.9 Unspecified place or not applicable; Z23 Encounter for immunization; Z85.07 Personal history of malignant neoplasm of pancreas; I10 Essential (primary) hypertension; E03.9 Hypothyroidism, unspecified; E78.5 Hyperlipidemia, unspecified
CPT/HCPCS: 96365; 96367; 96361; 96368; 93005; 87040 ×2; 87088; 85025; 87086; 80048; 36415; 83735; 82550; 87205 ×3; 85610; 80076; 83605; 87077 ×3; 87186 ×3; 84484; 84145; 83880; 70450; 72125; 71260; 74177; 71045; 72170; 73080; 73110; 73552; 90471; 90714; 51702; 96375; 99285; 96366; Q9967; J3010; J2543; J2270; J3370; J0692; J7030 ×2; J2405; 81003; 81015

== ENCOUNTER 2019-06-07 16:15 | Inpatient (IN) | payer OTHER ==
[2019-06-07 18:05] VITALS: BMI 16.7
[2019-06-07] MEDS: PANTOPRAZOLE 40MG TABLET PO SCH (20:18)
[2019-06-07] MEDS: MORPHINE 2 MG/ML SYR IV PRN ×2 (20:42→23:39)
--- OUTSIDE RECORDS SUMMARY | 2019-06-07 21:26 | XMS REPORT ---
:1940 [facility] [place] [address] Care Team Providers Name Role Phone MARK ESCALERA Unavailable Unavailable JHOANCAS Unavailable Unavailable Problems This patient has no known problems. Allergies, Adverse Reactions, Alerts This patient has no known allergies or adverse reactions. Medications This patient has no known medications. Encounters Start End Encounter Admission Attending Care Care Encounter Date/Time Date/Time Type Type Clinicians Facility Department ID 2019-05-03 2019-05-03 Outpatient [facility] [id number] 11:30:00 11:30:00 Results Test Description Test Time Test Comments Text Results Atomic Results Result Comments TISSUE EXAM 2019-04-26 19:15:00 Surgical Pathology Report Case: [id number] Authorizing Provider: Mark Escalera MD Collected: 02/12/2018 0923 Ordering Location: [facility] Received: 02/12/2018 1247 SERVICES [...] of MMR proteins. 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 97690B. 45023, 74969, 87887 f9Ppesaljxf neoplasm of pancreasA. Hepatic artery lymph node; [...] by the mass. The uninvolved pancreas is umnson and lobulated. The gastric mucosa and proximal [...] bile duct margin, en face; B3, tumor, livestock sales representative; B4, vascular bed, en face; [...] pancreatic and common bile ducts; B27-B28 duodenum, livestock sales representative; B29, cystic duct edge; B30, cystic duct livestock sales representative. OK/pl/ewFROZEN SECTION DIAGNOSIS: B1FS, PANCREATIC NECK MARGIN, NEGATIVE FOR LFOCMWMVOG1BC, COMMON BILE DUCT MARGIN, NEGATIVE FOR ZECVHDJLMP4DW, TUMOR CRIMPER ASSEMBLER; ADENOCARCINOMAThe findings are reported to Dr. Escalera by Dr. Love on 12:49 p.m. February 12, 2018. ANAEROBIC CULTURE 2018-02-20 04:17:00 Test Item Value Reference Range Comments CULTURE (BEAKER) (test miql=4048) <1+ Propionibacterium acnes ANAEROBIC [id number] 05:08:00 Test Item Value Reference Range Comments CULTURE (BEAKER) (test jphr=9676) No anaerobes isolated HEPATIC FUNCTION [id number] 06:35:00 Test Item Value Reference Range Comments TOTAL PROTEIN (BEAKER) (test ppah=666) 4.5 gm/dL 6.0-8.3 ALBUMIN (BEAKER) (test jwwr=8782) 2.5 g/dL 3.5-5.0 BILIRUBIN TOTAL (BEAKER) (test mczq=984) 2.3 mg/dL 0.2-1.2 BILIRUBIN DIRECT (BEAKER) (test fcwa=115) 1.8 mg/dL 0.1-0.5 ALKALINE PHOSPHATASE (BEAKER) (test unvp=284) 169 U/L 40-150 AST (SGOT) (BEAKER) (test iuvn=836) 25 U/L 5-34 ALT (SGPT) (BEAKER) (test wcql=663) 32 U/L 6-55 Specimen slightly ictericSURGICALLY OBTAINED CULTURE + GRAM [id number] 16: 50:00 Test Item Value Reference Range Comments CULTURE (BEAKER) (test ENTEROCOCCUS SPECIES 1+ Enterococcus species clxh=1993) Ampicillin (test code=26) Linezolid (test code=40) Tetracycline (test code=2) Vancomycin (test code=13) CULTURE (BEAKER) (test <1+ Enterobacter cloacae tuse=9100) complex GRAM STAIN RESULT 1+ WBCs (BEAKER) (test bhtp=0532) GRAM STAIN RESULT No organisms seen (BEAKER) (test wazn=971885) [id number] 06:20:00 Test Item Value Reference Range Comments PHOSPHORUS (BEAKER) (test mstm=866) 1.2 mg/dL 2.3-4.7 [id number] 06:19:00 Test Item Value Reference Range Comments MAGNESIUM (BEAKER) (test yakm=739) 1.9 mg/dL 1.6-2.6 BASIC METABOLIC [id number] 06:19:00 Test Item Value Reference Range Comments SODIUM (BEAKER) (test 137 meq/L 136-145 edal=382) POTASSIUM (BEAKER) (test 3.5 meq/L 3.5-5.1 dpru=197) CHLORIDE (BEAKER) (test 106 meq/L 98-107 higt=020) CO2 (BEAKER) (test 23 meq/L 22-29 vdoa=068) BLOOD UREA NITROGEN 8 mg/dL 7-21 (BEAKER) (test qywk=948) CREATININE (BEAKER) (test 0.60 mg/dL 0.57-1.25 wkup=116) GLUCOSE RANDOM (BEAKER) 78 mg/dL 70-105 (test arpj=685) CALCIUM (BEAKER) (test 8.0 mg/dL 8.4-10.2 qbay=914) EGFR (BEAKER) (test 97 mL/min/1.73 sq m ESTIMATED GFR IS NOT gojf=5260) ACCURATE CREATININE CLEARANCE IN PREDICTING GLOMERULAR FILTRATION RATE. ESTIMATED GFR IS NOT APPLICABLE FOR DIALYSIS PATIENTS. Specimen slightly ictericHEPATIC FUNCTION [id number] 06:19:00 Test Item Value Reference Range Comments TOTAL PROTEIN (BEAKER) (test tjen=047) 5.2 gm/dL 6.0-8.3 ALBUMIN (BEAKER) (test tizd=7560) 2.9 g/dL 3.5-5.0 BILIRUBIN TOTAL (BEAKER) (test bswe=793) 2.8 mg/dL 0.2-1.2 BILIRUBIN DIRECT (BEAKER) (test jlys=607) 2.0 mg/dL 0.1-0.5 ALKALINE PHOSPHATASE (BEAKER) (test ndyh=117) 194 U/L 40-150 AST (SGOT) (BEAKER) (test rmtk=199) 30 U/L 5-34 ALT (SGPT) (BEAKER) (test ocjm=614) 40 U/L 6-55 Specimen slightly ictericCBC (HEMOGRAM ONLY)2018-02-15 05:55:00 Test Item Value Reference Range Comments WHITE BLOOD CELL COUNT (BEAKER) (test ttxi=692) 13.1 K/ L 3.5-10.5 RED BLOOD CELL COUNT (BEAKER) (test acxh=764) 3.05 M/ L 3.93-5.22 HEMOGLOBIN (BEAKER) (test dvgo=577) 9.8 GM/DL 11.2-15.7 HEMATOCRIT (BEAKER) (test mwsr=249) 31.0 % 34.1-44.9 MEAN CORPUSCULAR VOLUME (BEAKER) (test advk=253) 101.6 fL 79.4-94.8 MEAN CORPUSCULAR HEMOGLOBIN (BEAKER) (test 32.1 pg 25.6-32.2 vhmu=884) MEAN CORPUSCULAR HEMOGLOBIN CONC (BEAKER) (test 31.6 GM/DL 32.2-35.5 ejwe=199) RED CELL DISTRIBUTION WIDTH (BEAKER) (test 15.7 % 11.7-14.4 pqxa=863) PLATELET COUNT (BEAKER) (test vusk=930) 335 K/CU MM 150-450 MEAN PLATELET VOLUME (BEAKER) (test uwbx=663) 10.2 fL 9.4-12.3 NUCLEATED RED BLOOD CELLS (BEAKER) (test 0 /100 WBC 0-0 bozd=666) AMYLASE, BODY [id number] 05:30:00 Test Item Value Reference Range Comments AMYLASE FLUID (BEAKER) (test flmi=960) 14 U/L Absence of reference range indicates that normals have not been defined.Assay performance has not been validated for this type of specimen.Lateral drainAMYLASE, BODY [id number] 05:30:00 Test Item Value Reference Range Comments AMYLASE FLUID (BEAKER) (test mrea=131) 12 U/L Absence of reference range indicates that normals have not been defined.Assay performance has not been validated for this type of specimen.Medial drainSURGICALLY OBTAINED CULTURE + GRAM [id number] 10:26:00 Test Item Value Reference Range Comments CULTURE (BEAKER) (test ACINETOBACTER 1+ Acinetobacter iwig=0833) BAUMANNII baumannii Amikacin (test code=1) Susceptible 0-16 [...] CULTURE (BEAKER) (test From Broth Only Same cqmj=7944) organism has been isolated from cultures(s) of the same body site and collection date. Repeat identification and susceptibility testing performed only after consultation with the clinical microbiology laboratory.Refer to previous culture ofEnterococcus species GRAM STAIN RESULT 2+ White blood cells (BEAKER) (test seen unwf=0128) GRAM STAIN RESULT 1+ gram positive (BEAKER) (test cocci ftkk=995838) GRAM STAIN RESULT <1+ gram negative (BEAKER) (test rods bqno=904954) URINALYSIS W/ REFLEX URINE [id number] 06:48:00 Test Item Value Reference Range Comments COLOR (BEAKER) (test hyze=653) Yellow CLARITY (BEAKER) (test hqnk=652) Clear SPECIFIC GRAVITY UA (BEAKER) (test aqlf=290) 1.013 1.001-1.035 PH UA (BEAKER) (test iais=530) 5.5 5.0-8.0 PROTEIN UA (BEAKER) (test hcmq=933) 30 mg/dL Negative GLUCOSE UA (BEAKER) (test suyp=392) Negative Negative KETONES UA (BEAKER) (test wejm=939) Negative Negative BILIRUBIN UA (BEAKER) (test ouuj=266) Negative Negative BLOOD UA (BEAKER) (test jizu=291) Moderate Negative NITRITE UA (BEAKER) (test sske=354) Negative Negative LEUKOCYTE ESTERASE UA (BEAKER) (test wcgv=638) Negative Negative UROBILINOGEN UA (BEAKER) (test fjqr=574) 0.2 mg/dL 0.2-1.0 RBC UA (BEAKER) (test ovpw=416) 1 /HPF WBC UA (BEAKER) (test rkzo=197) 3 /HPF BACTERIA (BEAKER) (test chsw=089) Rare MUCUS (BEAKER) (test vdys=8964) Rare SQUAMOUS EPITHELIAL (BEAKER) (test pwkw=199) 2 /HPF HYALINE CASTS (BEAKER) (test dgir=029) 1 /LPF SOURCE(BEAKER) (test htsl=1907) BASIC METABOLIC [id number] 05:46:00 Test Item Value Reference Range Comments SODIUM (BEAKER) (test 136 meq/L 136-145 jpbj=819) POTASSIUM (BEAKER) (test 3.1 meq/L 3.5-5.1 ulsc=991) CHLORIDE (BEAKER) (test 105 meq/L 98-107 oyzj=309) CO2 (BEAKER) (test 24 meq/L 22-29 mwwt=949) BLOOD UREA NITROGEN 13 mg/dL 7-21 (BEAKER) (test pnys=077) CREATININE (BEAKER) (test 0.58 mg/dL 0.57-1.25 hofb=509) GLUCOSE RANDOM (BEAKER) 85 mg/dL 70-105 (test jhpd=172) CALCIUM (BEAKER) (test 7.5 mg/dL 8.4-10.2 retd=314) EGFR (BEAKER) (test 101 mL/min/1.73 sq m ESTIMATED GFR IS NOT mnir=8646) ACCURATE CREATININE CLEARANCE IN PREDICTING GLOMERULAR FILTRATION RATE. ESTIMATED GFR IS NOT APPLICABLE FOR DIALYSIS PATIENTS. Specimen slightly [id number] 05:36:00 Test Item Value Reference Range Comments PHOSPHORUS (BEAKER) (test kenf=823) 2.3 mg/dL 2.3-4.7 [id number] 05:36:00 Test Item Value Reference Range Comments MAGNESIUM (BEAKER) (test ptra=925) 1.8 mg/dL 1.6-2.6 HEPATIC FUNCTION [id number] 05:36:00 Test Item Value Reference Range Comments TOTAL PROTEIN (BEAKER) (test ajle=247) 4.6 gm/dL 6.0-8.3 ALBUMIN (BEAKER) (test dhkb=2622) 2.8 g/dL 3.5-5.0 BILIRUBIN TOTAL (BEAKER) (test qbws=498) 3.0 mg/dL 0.2-1.2 BILIRUBIN DIRECT (BEAKER) (test aqnn=033) 1.9 mg/dL 0.1-0.5 ALKALINE PHOSPHATASE (BEAKER) (test rpmn=288) 179 U/L 40-150 AST (SGOT) (BEAKER) (test gtdn=855) 32 U/L 5-34 ALT (SGPT) (BEAKER) (test vivm=997) 43 U/L 6-55 Specimen slightly ictericCBC (HEMOGRAM ONLY)2018-02-14 05:11:00 Test Item Value Reference Range Comments WHITE BLOOD CELL COUNT (BEAKER) (test nitx=192) 15.1 K/ L 3.5-10.5 RED BLOOD CELL COUNT (BEAKER) (test qhja=000) 2.76 M/ L 3.93-5.22 HEMOGLOBIN (BEAKER) (test ulcq=643) 9.0 GM/DL 11.2-15.7 HEMATOCRIT (BEAKER) (test irnv=991) 28.3 % 34.1-44.9 MEAN CORPUSCULAR VOLUME (BEAKER) (test xbjw=906) 102.5 fL 79.4-94.8 MEAN CORPUSCULAR HEMOGLOBIN (BEAKER) (test 32.6 pg 25.6-32.2 jfep=226) MEAN CORPUSCULAR HEMOGLOBIN CONC (BEAKER) (test 31.8 GM/DL 32.2-35.5 wflm=110) RED CELL DISTRIBUTION WIDTH (BEAKER) (test 16.0 % 11.7-14.4 ujbf=910) PLATELET COUNT (BEAKER) (test vhgn=167) 292 K/CU MM 150-450 MEAN PLATELET VOLUME (BEAKER) (test ldor=123) 10.4 fL 9.4-12.3 NUCLEATED RED BLOOD CELLS (BEAKER) (test 0 /100 WBC 0-0 fmhv=459) AMYLASE, BODY [id number] 04:25:00 Test Item Value Reference Range Comments AMYLASE FLUID (BEAKER) (test hujn=511) 32 U/L Absence of reference range indicates that normals have not been defined.Assay performance has not been validated for this type of specimen.Lateral drainAMYLASE, BODY [id number] 04:25:00 Test Item Value Reference Range Comments AMYLASE FLUID (BEAKER) (test ojws=478) 56 U/L Absence of reference range indicates that normals have not been defined.Assay performance has not been validated for this type of specimen.Medial drainAMYLASE , BODY [id number] 08:26:00 Test Item Value Reference Range Comments AMYLASE FLUID (BEAKER) (test aujo=885) 87 U/L Absence of reference range indicates that normals have not been defined.Assay performance has not been validated for this type of specimen.Medial drainAMYLASE , BODY [id number] 08:11:00 Test Item Value Reference Range Comments AMYLASE FLUID (BEAKER) (test wiym=594) 91 U/L Absence of reference range indicates that normals have not been defined.Assay performance has not been validated for this type of specimen.Lateral drainBASIC METABOLIC [id number] 07:04:00 Test Item Value Reference Range Comments SODIUM (BEAKER) (test 136 meq/L 136-145 hwfc=359) POTASSIUM (BEAKER) (test 4.1 meq/L 3.5-5.1 hsrn=362) CHLORIDE (BEAKER) (test 111 meq/L 98-107 hrwl=139) CO2 (BEAKER) (test 20 meq/L 22-29 tqhe=518) BLOOD UREA NITROGEN 15 mg/dL 7-21 (BEAKER) (test uueq=387) CREATININE (BEAKER) (test 0.66 mg/dL 0.57-1.25 zzsm=945) GLUCOSE RANDOM (BEAKER) 103 mg/dL 70-105 (test kbhu=259) CALCIUM (BEAKER) (test 7.6 mg/dL 8.4-10.2 dddq=177) EGFR (BEAKER) (test 87 mL/min/1.73 sq m ESTIMATED GFR IS NOT zwgx=5287) ACCURATE CREATININE CLEARANCE IN PREDICTING GLOMERULAR FILTRATION RATE. ESTIMATED GFR IS NOT APPLICABLE FOR DIALYSIS PATIENTS. Specimen slightly [id number] 07:02:00 Test Item Value Reference Range Comments PHOSPHORUS (BEAKER) (test mjgy=063) 2.1 mg/dL 2.3-4.7 [id number] 07:02:00 Test Item Value Reference Range Comments MAGNESIUM (BEAKER) (test lbjt=342) 1.4 mg/dL 1.6-2.6 HEPATIC FUNCTION [id number] 07:02:00 Test Item Value Reference Range Comments TOTAL PROTEIN (BEAKER) (test fqny=476) 5.3 gm/dL 6.0-8.3 ALBUMIN (BEAKER) (test jwez=0083) 3.3 g/dL 3.5-5.0 BILIRUBIN TOTAL (BEAKER) (test icsq=558) 3.3 mg/dL 0.2-1.2 BILIRUBIN DIRECT (BEAKER) (test dmjw=117) 2.2 mg/dL 0.1-0.5 ALKALINE PHOSPHATASE (BEAKER) (test nkrv=889) 208 U/L 40-150 AST (SGOT) (BEAKER) (test fasl=328) 50 U/L 5-34 ALT (SGPT) (BEAKER) (test wcfn=767) 60 U/L 6-55 Specimen slightly ictericCBC (HEMOGRAM ONLY)2018-02-13 07:00:00 Test Item Value Reference Range Comments WHITE BLOOD CELL COUNT (BEAKER) (test vmew=895) 16.5 K/ L 3.5-10.5 RED BLOOD CELL COUNT (BEAKER) (test bdns=098) 3.13 M/ L 3.93-5.22 HEMOGLOBIN (BEAKER) (test lpch=194) 10.3 GM/DL 11.2-15.7 HEMATOCRIT (BEAKER) (test coza=623) 32.6 % 34.1-44.9 MEAN CORPUSCULAR VOLUME (BEAKER) (test zeuu=890) 104.2 fL 79.4-94.8 MEAN CORPUSCULAR HEMOGLOBIN (BEAKER) (test 32.9 pg 25.6-32.2 fdph=101) MEAN CORPUSCULAR HEMOGLOBIN CONC (BEAKER) (test 31.6 GM/DL 32.2-35.5 okux=424) RED CELL DISTRIBUTION WIDTH (BEAKER) (test 16.1 % 11.7-14.4 tybv=830) PLATELET COUNT (BEAKER) (test bode=877) 366 K/CU MM 150-450 MEAN PLATELET VOLUME (BEAKER) (test xxdq=842) 9.9 fL 9.4-12.3 NUCLEATED RED BLOOD CELLS (BEAKER) (test 0 /100 WBC 0-0 dhsp=926) BASIC METABOLIC [id number] 17:20:00 Test Item Value Reference Range Comments SODIUM (BEAKER) (test 137 meq/L 136-145 gbmz=911) POTASSIUM (BEAKER) (test 4.6 meq/L 3.5-5.1 eyps=058) CHLORIDE (BEAKER) (test 110 meq/L 98-107 jkft=576) CO2 (BEAKER) (test 21 meq/L 22-29 hpbp=290) BLOOD UREA NITROGEN 16 mg/dL 7-21 (BEAKER) (test sjvm=123) CREATININE (BEAKER) (test 0.77 mg/dL 0.57-1.25 oofn=861) GLUCOSE RANDOM (BEAKER) 151 mg/dL 70-105 (test egst=072) CALCIUM (BEAKER) (test 7.8 mg/dL 8.4-10.2 evto=654) EGFR (BEAKER) (test 73 mL/min/1.73 sq m ESTIMATED GFR IS NOT hzru=1275) ACCURATE CREATININE CLEARANCE IN PREDICTING GLOMERULAR FILTRATION RATE. ESTIMATED GFR IS NOT APPLICABLE FOR DIALYSIS PATIENTS. Specimen slightly [id number] 17:19:00 Test Item Value Reference Range Comments POTASSIUM (BEAKER) (test oanf=156) 4.6 meq/L 3.5-5.1 CBC (HEMOGRAM ONLY)2018-02-12 16:54:00 Test Item Value Reference Range Comments WHITE BLOOD CELL COUNT (BEAKER) (test ldtm=148) 11.9 K/ L 3.5-10.5 RED BLOOD CELL COUNT (BEAKER) (test gzae=706) 2.91 M/ L 3.93-5.22 HEMOGLOBIN (BEAKER) (test jrzv=911) 9.3 GM/DL 11.2-15.7 HEMATOCRIT (BEAKER) (test vhqn=240) 29.1 % 34.1-44.9 MEAN CORPUSCULAR VOLUME (BEAKER) (test smcw=827) 100.0 fL 79.4-94.8 MEAN CORPUSCULAR HEMOGLOBIN (BEAKER) (test 32.0 pg 25.6-32.2 mztq=386) MEAN CORPUSCULAR HEMOGLOBIN CONC (BEAKER) (test 32.0 GM/DL 32.2-35.5 nhir=843) RED CELL DISTRIBUTION WIDTH (BEAKER) (test 15.5 % 11.7-14.4 cpvp=580) PLATELET COUNT (BEAKER) (test vkjn=209) 299 K/CU MM 150-450 MEAN PLATELET VOLUME (BEAKER) (test batw=953) 9.5 fL 9.4-12.3 NUCLEATED RED BLOOD CELLS (BEAKER) (test 0 /100 WBC 0-0 ywyj=032) GLUCOSE-STAT [id number] 12:41:00 Test Item Value Reference Range Comments GLUCOSE RANDOM (BEAKER) (test odpr=625) 126 mg/dL 70-110 HGB/HCT (H&H) - STAT [id number] 12:41:00 Test Item Value Reference Range Comments HEMOGLOBIN (BEAKER) (test zceo=598) 10.1 g/dL 12.0-15.0 HEMATOCRIT (BEAKER) (test wfoj=912) 30.0 % 36.0-45.0 BLOOD GAS, [id number] 12:41:00 Test Item Value Reference Range Comments PH ARTERIAL (BEAKER) (test ufgq=187) 7.39 7.35-7.45 PCO2 ARTERIAL (BEAKER) (test uczv=157) 39 mmHg 35-45 PO2 ARTERIAL (BEAKER) (test ksar=779) 269 mmHg 80-90 O2 SATURATION ARTERIAL (BEAKER) (test mrdr=243) 99.6 % 96.0-97.0 HCO3 ARTERIAL (BEAKER) (test tytm=160) 23 mmol/L 21-29 BASE EXCESS ARTERIAL (BEAKER) (test iuew=455) -1.9 mmol/L -2.0-3.0 PATIENT TEMPERATURE (BEAKER) (test kcxc=2974) 37.0 C FIO2 (BEAKER) (test rtmc=5344) 50.0 % CALCIUM, [id number] 12:41:00 Test Item Value Reference Range Comments CALCIUM IONIZED (BEAKER) (test krdx=349) 1.00 mmol/L 1.12-1.27 PH, BLOOD (BEAKER) (test qmea=7334) 7.39 SODIUM NA-STAT [id number] 12:40:00 Test Item Value Reference Range Comments SODIUM (BEAKER) (test pwbn=957) 135 meq/L 135-148 POTASSIUM-STAT [id number] 12:40:00 Test Item Value Reference Range Comments POTASSIUM (BEAKER) (test drxh=733) 4.8 meq/L 3.6-5.5 POTASSIUM-STAT [id number] 08:57:00 Test Item Value Reference Range Comments POTASSIUM (BEAKER) (test xjii=665) 2.9 meq/L 3.6-5.5 HGB/HCT (H&H) - STAT [id number] 08:57:00 Test Item Value Reference Range Comments HEMOGLOBIN (BEAKER) (test wgiz=371) 10.1 g/dL 12.0-15.0 HEMATOCRIT (BEAKER) (test wkpn=923) 30.0 % 36.0-45.0 BLOOD GAS, [id number] 08:57:00 Test Item Value Reference Range Comments PH ARTERIAL (BEAKER) (test riyq=542) 7.53 7.35-7.45 PCO2 ARTERIAL (BEAKER) (test xwks=758) 27 mmHg 35-45 PO2 ARTERIAL (BEAKER) (test hbyw=287) 347 mmHg 80-90 O2 SATURATION ARTERIAL (BEAKER) (test rlaa=337) 99.8 % 96.0-97.0 HCO3 ARTERIAL (BEAKER) (test aejv=124) 22 mmol/L 21-29 BASE EXCESS ARTERIAL (BEAKER) (test qixm=906) 0.4 mmol/L -2.0-3.0 PATIENT TEMPERATURE (BEAKER) (test iphl=1159) 37.0 C FIO2 (BEAKER) (test uxwu=6115) 90.0 % CALCIUM, [id number] 08:57:00 Test Item Value Reference Range Comments CALCIUM IONIZED (BEAKER) (test uwet=715) 1.09 mmol/L 1.12-1.27 PH, BLOOD (BEAKER) (test decb=1117) 7.53 GLUCOSE-STAT [id number] 08:56:00 Test Item Value Reference Range Comments GLUCOSE RANDOM (BEAKER) (test dbzu=120) 93 mg/dL 70-110 SODIUM NA-STAT [id number] 08:56:00 Test Item Value Reference Range Comments SODIUM (BEAKER) (test czpt=714) 135 meq/L 135-148 POTASSIUM-STAT [id number] 06:57:00 Test Item Value Reference Range Comments POTASSIUM (BEAKER) (test yoyg=780) 3.0 meq/L 3.6-5.5 [id number] 17:22:00Medical Cytology Report Case: [id number] Authorizing Provider: Randy Andrew MD Collected: 02/03/2018 1308 Ordering Location: [address] Received: 02/05/2018 1110 Service Pathologist: Steffi Renee MD Specimen: Common Bile Duct COMMON BILE DUCT BRUSHING (CYTOSPINS): - NO MALIGNANT CELLS SEEN Signing Pathologist Direct Phone Line: [phone] signed by Steffi Renee MD on 02/07/2018 at 5:22 PMPlease see cases [id number] and [id number] head mass, bile duct strictureCOMMON BILE DUCT BRUSHING1 brush tipin cytorich red; 2 cytospinsCollected: [id number]: [id number]. [facility], Department of Pathology, [address] [place] [address], [place] [address], [facility], Department of [facility]ology, [address] [place] [address] , [facility]wa[facility], Department of Pathology, [address] [place] [address], HIMF NEEDLE ASPIRATION BY [id number] 11:04:00Medical Cytology Report Case: [id number] Authorizing Provider: Randy Andrew MD Collected: 02/03/2018 1308 Ordering Location: [address] Received: 02/05/2018 1108 Service Pathologist: Steffi Renee MD Specimen: Pancreas, Head, Head of pancreas FNA PANCREAS HEAD MASS FNA BY CLINICIAN (CYTOSPINS AND CELL BLOCK OF ASPIRATE) : - FEW CLUSTERS OF ATYPICAL CELLS (SEE COMMENT) Signing Pathologist Direct Phone Line: [phone] signed by Keith Renee MD on 02/07/2018 at 11:04 AMVery few atypical cell clusters with rare gland formation are seen in the cellblock. These cells are very few for a definite diagnosis. Background acinar tissue is present. Five levels are examined.Please see cases [id number] and [id number], 08616(2.2 x 2.0 cm) Irregular mass in the pancreatic headPANCREAS, HEAD MASS FNA25 mls in cytorich red; 4 cytospins, cell blockCollected: [id number]: [id number] [facility], Department of Pathology, [address] [place] [address], Tel [facility], Department of Pathology, [address] [place] [address], [facility], Department of Pathology, [address] [place] [address], Tel TISSUE [id number] 18:25:00Surgical Pathology Report Case: [id number] Authorizing Provider: Randy Andrew MD Collected: 02/03/2018 1307 Ordering Location: [address] Received: 2017 0812 Service Pathologist: Shayan Green MD Specimen: Pancreas, Head, FNA -head of pancreas PANCREAS, HEAD, FNA BIOPSY OF MASS- ADENOCARCINOMA- SEE COMMENT Signing Pathologist Direct Phone Line: [phone] signed by Shayan Green MD on 2017 at 6:25 PMAbundant benign acinar tissue is seen in the background. Please also see concurrent cytology reports [id number] and [id number].Intradepartmental consultation: Los Baez MD has seen the case and agrees with the diagnosis.[id number] mass, jaundice Head of pancreas FNA biopsy Received in formalin labeled "pancreas, head" are multiple carrion-white friable fragments of soft tissue admixed with clotted blood measuring 1.5 x 1.1 x 02 cm in aggregate. The specimen is entirely submitted in cassette A1. DB/ew Performed.CT , ABDOMEN - PELVIS, PANCREAS [id number] 10:37:00Reason for exam:-> abnormal EUSFINAL REPORT INDICATION:77-year-old [...] Pineda MDReport VerifiedDate/Time: 02/06/2018 10:37:24 Reading Location: [facility] C0X Ortho Consult Reading Room [id number] 06:11:00 Test Item Value Reference Range Comments MAGNESIUM (BEAKER) (test bsxj=459) 1.7 mg/dL 1.6-2.6 BASIC METABOLIC [id number] 06:11:00 Test Item Value Reference Range Comments SODIUM (BEAKER) (test 142 meq/L 136-145 kipx=619) POTASSIUM (BEAKER) (test 3.2 meq/L 3.5-5.1 sbdr=761) CHLORIDE (BEAKER) (test 111 meq/L 98-107 rolq=059) CO2 (BEAKER) (test 23 meq/L 22-29 fmcp=795) BLOOD UREA NITROGEN 7 mg/dL 7-21 (BEAKER) (test wcpm=761) CREATININE (BEAKER) (test 0.62 mg/dL 0.57-1.25 otkf=068) GLUCOSE RANDOM (BEAKER) 80 mg/dL 70-105 (test zkvf=108) CALCIUM (BEAKER) (test 8.7 mg/dL 8.4-10.2 qlqy=569) EGFR (BEAKER) (test 93 mL/min/1.73 sq m ESTIMATED GFR IS NOT brah=0286) ACCURATE CREATININE CLEARANCE IN PREDICTING GLOMERULAR FILTRATION RATE. ESTIMATED GFR IS NOT APPLICABLE FOR DIALYSIS PATIENTS. Specimen moderately ictericHEPATIC FUNCTION [id number] 06:11:00 Test Item Value Reference Range Comments TOTAL PROTEIN (BEAKER) (test ckeg=106) 5.1 gm/dL 6.0-8.3 ALBUMIN (BEAKER) (test blaj=2929) 2.7 g/dL 3.5-5.0 BILIRUBIN TOTAL (BEAKER) (test zwmn=991) 5.5 mg/dL 0.2-1.2 BILIRUBIN DIRECT (BEAKER) (test sulw=087) 3.5 mg/dL 0.1-0.5 ALKALINE PHOSPHATASE (BEAKER) (test qxtu=279) 597 U/L 40-150 AST (SGOT) (BEAKER) (test covm=562) 54 U/L 5-34 ALT (SGPT) (BEAKER) (test ccjh=314) 108 U/L 6-55 Specimen moderately ictericCBC W/PLT COUNT & AUTO [id number] 06: 03:00 Test Item Value Reference Range Comments WHITE BLOOD CELL COUNT (BEAKER) (test fhce=986) 8.1 K/ L 3.5-10.5 RED BLOOD CELL COUNT (BEAKER) (test uhtk=215) 2.82 M/ L 3.93-5.22 HEMOGLOBIN (BEAKER) (test bskh=910) 8.9 GM/DL 11.2-15.7 HEMATOCRIT (BEAKER) (test cobc=548) 27.9 % 34.1-44.9 MEAN CORPUSCULAR VOLUME (BEAKER) (test lmbf=803) 98.9 fL 79.4-94.8 MEAN CORPUSCULAR HEMOGLOBIN (BEAKER) (test 31.6 pg 25.6-32.2 nxqd=629) MEAN CORPUSCULAR HEMOGLOBIN CONC (BEAKER) (test 31.9 GM/DL 32.2-35.5 syds=166) RED CELL DISTRIBUTION WIDTH (BEAKER) (test 15.7 % 11.7-14.4 taqx=042) PLATELET COUNT (BEAKER) (test tdnx=582) 222 K/CU MM 150-450 MEAN PLATELET VOLUME (BEAKER) (test tbjn=108) 10.2 fL 9.4-12.3 NUCLEATED RED BLOOD CELLS (BEAKER) (test 0 /100 WBC 0-0 lmpu=833) NEUTROPHILS RELATIVE PERCENT (BEAKER) (test 64 % ctab=748) LYMPHOCYTES RELATIVE PERCENT (BEAKER) (test 19 % vdxt=163) MONOCYTES RELATIVE PERCENT (BEAKER) (test 8 % rbpv=934) EOSINOPHILS RELATIVE PERCENT (BEAKER) (test 3 % btwk=977) BASOPHILS RELATIVE PERCENT (BEAKER) (test 1 % deyn=486) NEUTROPHILS ABSOLUTE COUNT (BEAKER) (test 5.17 K/ L 1.56-6.13 kncy=797) LYMPHOCYTES ABSOLUTE COUNT (BEAKER) (test 1.56 K/ L 1.18-3.74 dfvs=393) MONOCYTES ABSOLUTE COUNT (BEAKER) (test 0.63 K/ L 0.24-0.36 racn=950) EOSINOPHILS ABSOLUTE COUNT (BEAKER) (test 0.24 K/ L 0.04-0.36 jtop=362) BASOPHILS ABSOLUTE COUNT (BEAKER) (test 0.06 K/ L 0.01-0.08 hhod=359) IMMATURE GRANULOCYTES-RELATIVE PERCENT (BEAKER) 5 % 0-1 (test rlfw=1168) CYTOLOGY [id number] 13:00:00 Test Item Value Reference Range Comments CYTOLOGY RESULT POINTER (BEAKER) (test See Separate Report nrrk=6634) FINE NEEDLE ASPIRATE (FNA) [id number] 13:00:00 Test Item Value Reference Range Comments CYTOLOGY RESULT POINTER (BEAKER) (test See Separate Report wxki=0856) [id number] 07:38:00 Test Item Value Reference Range Comments MAGNESIUM (BEAKER) (test hryr=900) 1.9 mg/dL 1.6-2.6 BASIC METABOLIC [id number] 07:38:00 Test Item Value Reference Range Comments SODIUM (BEAKER) (test 140 meq/L 136-145 mphe=442) POTASSIUM (BEAKER) (test 3.5 meq/L 3.5-5.1 urfp=182) CHLORIDE (BEAKER) (test 110 meq/L 98-107 kzao=073) CO2 (BEAKER) (test 22 meq/L 22-29 stav=688) BLOOD UREA NITROGEN 8 mg/dL 7-21 (BEAKER) (test gwvo=959) CREATININE (BEAKER) (test 0.66 mg/dL 0.57-1.25 ywtk=299) GLUCOSE RANDOM (BEAKER) 84 mg/dL 70-105 (test plun=489) CALCIUM (BEAKER) (test 9.1 mg/dL 8.4-10.2 deln=593) EGFR (BEAKER) (test 87 mL/min/1.73 sq m ESTIMATED GFR IS NOT welw=8905) ACCURATE CREATININE CLEARANCE IN PREDICTING GLOMERULAR FILTRATION RATE. ESTIMATED GFR IS NOT APPLICABLE FOR DIALYSIS PATIENTS. Specimen moderately ictericHEPATIC FUNCTION [id number] 07:38:00 Test Item Value Reference Range Comments TOTAL PROTEIN (BEAKER) (test bapd=539) 6.0 gm/dL 6.0-8.3 ALBUMIN (BEAKER) (test iefw=7547) 3.2 g/dL 3.5-5.0 BILIRUBIN TOTAL (BEAKER) (test tacq=579) 7.3 mg/dL 0.2-1.2 BILIRUBIN DIRECT (BEAKER) (test xyzr=788) 4.6 mg/dL 0.1-0.5 ALKALINE PHOSPHATASE (BEAKER) (test splx=865) 838 U/L 40-150 AST (SGOT) (BEAKER) (test urws=017) 89 U/L 5-34 ALT (SGPT) (BEAKER) (test gdxj=206) 161 U/L 6-55 Specimen moderately ictericCBC W/PLT COUNT & AUTO [id number] 06: 59:00 Test Item Value Reference Range Comments WHITE BLOOD CELL COUNT (BEAKER) (test nazh=380) 10.8 K/ L 3.5-10.5 RED BLOOD CELL COUNT (BEAKER) (test ezhh=072) 3.21 M/ L 3.93-5.22 HEMOGLOBIN (BEAKER) (test vxks=285) 10.3 GM/DL 11.2-15.7 HEMATOCRIT (BEAKER) (test gakg=953) 31.3 % 34.1-44.9 MEAN CORPUSCULAR VOLUME (BEAKER) (test isow=508) 97.5 fL 79.4-94.8 MEAN CORPUSCULAR HEMOGLOBIN (BEAKER) (test 32.1 pg 25.6-32.2 qkhv=551) MEAN CORPUSCULAR HEMOGLOBIN CONC (BEAKER) (test 32.9 GM/DL 32.2-35.5 uzus=700) RED CELL DISTRIBUTION WIDTH (BEAKER) (test 16.7 % 11.7-14.4 rxyz=690) PLATELET COUNT (BEAKER) (test wegu=137) 245 K/CU MM 150-450 MEAN PLATELET VOLUME (BEAKER) (test behi=701) 10.5 fL 9.4-12.3 NUCLEATED RED BLOOD CELLS (BEAKER) (test 0 /100 WBC 0-0 shfo=404) NEUTROPHILS RELATIVE PERCENT (BEAKER) (test 65 % zjue=818) LYMPHOCYTES RELATIVE PERCENT (BEAKER) (test 20 % foir=029) MONOCYTES RELATIVE PERCENT (BEAKER) (test 7 % ydjt=822) EOSINOPHILS RELATIVE PERCENT (BEAKER) (test 2 % gpxt=284) BASOPHILS RELATIVE PERCENT (BEAKER) (test 1 % ntkd=493) NEUTROPHILS ABSOLUTE COUNT (BEAKER) (test 7.01 K/ L 1.56-6.13 gnxs=003) LYMPHOCYTES ABSOLUTE COUNT (BEAKER) (test 2.15 K/ L 1.18-3.74 zxly=447) MONOCYTES ABSOLUTE COUNT (BEAKER) (test 0.71 K/ L 0.24-0.36 berq=845) EOSINOPHILS ABSOLUTE COUNT (BEAKER) (test 0.26 K/ L 0.04-0.36 yrwh=001) BASOPHILS ABSOLUTE COUNT (BEAKER) (test 0.08 K/ L 0.01-0.08 emru=736) IMMATURE GRANULOCYTES-RELATIVE PERCENT (BEAKER) 5 % 0-1 (test bcbx=1286) URINE [id number] 06:20:00 Test Item Value Reference Range Comments CULTURE (BEAKER) (test fhdc=8268) No growth [id number] 05:46:00 Test Item Value Reference Range Comments MAGNESIUM (BEAKER) (test cduq=195) 2.2 mg/dL 1.6-2.6 BASIC METABOLIC [id number] 05:46:00 Test Item Value Reference Range Comments SODIUM (BEAKER) (test 143 meq/L 136-145 xnva=239) POTASSIUM (BEAKER) (test 3.9 meq/L 3.5-5.1 lxqr=243) CHLORIDE (BEAKER) (test 112 meq/L 98-107 lhby=277) CO2 (BEAKER) (test 22 meq/L 22-29 qyrn=499) BLOOD UREA NITROGEN 13 mg/dL 7-21 (BEAKER) (test bvhg=385) CREATININE (BEAKER) (test 0.79 mg/dL 0.57-1.25 trin=732) GLUCOSE RANDOM (BEAKER) 106 mg/dL 70-105 (test ypvy=132) CALCIUM (BEAKER) (test 8.6 mg/dL 8.4-10.2 nrbz=650) EGFR (BEAKER) (test 71 mL/min/1.73 sq m ESTIMATED GFR IS NOT iygi=5880) ACCURATE CREATININE CLEARANCE IN PREDICTING GLOMERULAR FILTRATION RATE. ESTIMATED GFR IS NOT APPLICABLE FOR DIALYSIS PATIENTS. Specimen moderately ictericHEPATIC FUNCTION [id number] 05:46:00 Test Item Value Reference Range Comments TOTAL PROTEIN (BEAKER) (test trla=014) 5.4 gm/dL 6.0-8.3 ALBUMIN (BEAKER) (test nqmj=5281) 3.0 g/dL 3.5-5.0 BILIRUBIN TOTAL (BEAKER) (test xwzs=937) 9.2 mg/dL 0.2-1.2 BILIRUBIN DIRECT (BEAKER) (test mrpj=003) 6.0 mg/dL 0.1-0.5 ALKALINE PHOSPHATASE (BEAKER) (test zooq=911) 932 U/L 40-150 AST (SGOT) (BEAKER) (test ntsi=608) 189 U/L 5-34 ALT (SGPT) (BEAKER) (test drns=616) 213 U/L 6-55 Specimen moderately ictericCBC W/PLT COUNT & AUTO [id number] 04: 26:00 Test Item Value Reference Range Comments WHITE BLOOD CELL COUNT (BEAKER) (test oinl=727) 9.9 K/ L 3.5-10.5 RED BLOOD CELL COUNT (BEAKER) (test piri=025) 3.06 M/ L 3.93-5.22 HEMOGLOBIN (BEAKER) (test lwxc=795) 9.9 GM/DL 11.2-15.7 HEMATOCRIT (BEAKER) (test hqus=522) 29.2 % 34.1-44.9 MEAN CORPUSCULAR VOLUME (BEAKER) (test cllg=971) 95.4 fL 79.4-94.8 MEAN CORPUSCULAR HEMOGLOBIN (BEAKER) (test 32.4 pg 25.6-32.2 njid=150) MEAN CORPUSCULAR HEMOGLOBIN CONC (BEAKER) (test 33.9 GM/DL 32.2-35.5 asgc=166) RED CELL DISTRIBUTION WIDTH (BEAKER) (test 17.6 % 11.7-14.4 ckbx=680) PLATELET COUNT (BEAKER) (test sipu=332) 232 K/CU MM 150-450 MEAN PLATELET VOLUME (BEAKER) (test kirf=605) 10.8 fL 9.4-12.3 NUCLEATED RED BLOOD CELLS (BEAKER) (test 0 /100 WBC 0-0 ixgx=863) NEUTROPHILS RELATIVE PERCENT (BEAKER) (test 71 % vsmn=261) LYMPHOCYTES RELATIVE PERCENT (BEAKER) (test 14 % qfqp=842) MONOCYTES RELATIVE PERCENT (BEAKER) (test 8 % fybe=798) EOSINOPHILS RELATIVE PERCENT (BEAKER) (test 2 % igwo=244) BASOPHILS RELATIVE PERCENT (BEAKER) (test 1 % rakt=869) NEUTROPHILS ABSOLUTE COUNT (BEAKER) (test 6.98 K/ L 1.56-6.13 fgzv=084) LYMPHOCYTES ABSOLUTE COUNT (BEAKER) (test 1.41 K/ L 1.18-3.74 zidp=129) MONOCYTES ABSOLUTE COUNT (BEAKER) (test 0.78 K/ L 0.24-0.36 pklk=128) EOSINOPHILS ABSOLUTE COUNT (BEAKER) (test 0.16 K/ L 0.04-0.36 dszr=088) BASOPHILS ABSOLUTE COUNT (BEAKER) (test 0.07 K/ L 0.01-0.08 nbsb=706) IMMATURE GRANULOCYTES-RELATIVE PERCENT (BEAKER) 5 % 0-1 (test qwau=0532) [place], [id number] 13:28:00Reason for exam:->jaundiceFINAL REPORT ERCP, 02/03/2018 Clinical [...] Verified Date/Time: 2017 13:28:45 Reading Location: [address] [facility]ult Reading Room [id number] 07:11:00 Test Item Value Reference Range Comments MAGNESIUM (BEAKER) (test ltui=503) 1.7 mg/dL 1.6-2.6 BASIC METABOLIC [id number] 07:11:00 Test Item Value Reference Range Comments SODIUM (BEAKER) (test 142 meq/L 136-145 iotu=012) POTASSIUM (BEAKER) (test 3.3 meq/L 3.5-5.1 xpta=936) CHLORIDE (BEAKER) (test 110 meq/L 98-107 fjaz=344) CO2 (BEAKER) (test 23 meq/L 22-29 byvh=500) BLOOD UREA NITROGEN 22 mg/dL 7-21 (BEAKER) (test lufq=636) CREATININE (BEAKER) (test 1.06 mg/dL 0.57-1.25 reul=842) GLUCOSE RANDOM (BEAKER) 89 mg/dL 70-105 (test uvro=636) CALCIUM (BEAKER) (test 8.6 mg/dL 8.4-10.2 bnyt=424) EGFR (BEAKER) (test 50 mL/min/1.73 sq m ESTIMATED GFR IS NOT zbal=7095) ACCURATE CREATININE CLEARANCE IN PREDICTING GLOMERULAR FILTRATION RATE. ESTIMATED GFR IS NOT APPLICABLE FOR DIALYSIS PATIENTS. Specimen markedly ictericHEPATIC FUNCTION [id number] 07:11:00 Test Item Value Reference Range Comments TOTAL PROTEIN (BEAKER) (test nawt=426) 5.4 gm/dL 6.0-8.3 ALBUMIN (BEAKER) (test ykdc=8263) 3.0 g/dL 3.5-5.0 BILIRUBIN TOTAL (BEAKER) (test dncn=806) 18.0 mg/dL 0.2-1.2 BILIRUBIN DIRECT (BEAKER) (test kanf=285) 11.9 mg/dL 0.1-0.5 ALKALINE PHOSPHATASE (BEAKER) (test tlrv=013) 1031 U/L 40-150 AST (SGOT) (BEAKER) (test rcgf=192) 306 U/L 5-34 ALT (SGPT) (BEAKER) (test qniv=071) 246 U/L 6-55 Specimen markedly [id number] 07:11:00 Test Item Value Reference Range Comments AMYLASE (BEAKER) (test jiip=820) 202 U/L 25-125 Specimen markedly [id number] 07:11:00 Test Item Value Reference Range Comments LIPASE (BEAKER) (test gwxp=208) 489 U/L 8-78 Specimen markedly ictericCBC W/PLT COUNT & AUTO [id number] 06:42 :00 Test Item Value Reference Range Comments WHITE BLOOD CELL COUNT (BEAKER) (test qymn=789) 8.1 K/ L 3.5-10.5 RED BLOOD CELL COUNT (BEAKER) (test qrrz=679) 3.19 M/ L 3.93-5.22 HEMOGLOBIN (BEAKER) (test enle=381) 10.2 GM/DL 11.2-15.7 HEMATOCRIT (BEAKER) (test etav=792) 30.2 % 34.1-44.9 MEAN CORPUSCULAR VOLUME (BEAKER) (test wgaw=726) 94.7 fL 79.4-94.8 MEAN CORPUSCULAR HEMOGLOBIN (BEAKER) (test 32.0 pg 25.6-32.2 btvh=216) MEAN CORPUSCULAR HEMOGLOBIN CONC (BEAKER) (test 33.8 GM/DL 32.2-35.5 lwjs=184) RED CELL DISTRIBUTION WIDTH (BEAKER) (test 17.0 % 11.7-14.4 mllo=188) PLATELET COUNT (BEAKER) (test krit=126) 222 K/CU MM 150-450 MEAN PLATELET VOLUME (BEAKER) (test wmzd=197) 11.0 fL 9.4-12.3 NUCLEATED RED BLOOD CELLS (BEAKER) (test 0 /100 WBC 0-0 popn=736) NEUTROPHILS RELATIVE PERCENT (BEAKER) (test 70 % oavt=452) LYMPHOCYTES RELATIVE PERCENT (BEAKER) (test 14 % zcij=630) MONOCYTES RELATIVE PERCENT (BEAKER) (test 8 % lnmh=318) EOSINOPHILS RELATIVE PERCENT (BEAKER) (test 2 % veat=236) BASOPHILS RELATIVE PERCENT (BEAKER) (test 1 % tanr=303) NEUTROPHILS ABSOLUTE COUNT (BEAKER) (test 5.69 K/ L 1.56-6.13 gqfb=155) LYMPHOCYTES ABSOLUTE COUNT (BEAKER) (test 1.13 K/ L 1.18-3.74 rcpk=706) MONOCYTES ABSOLUTE COUNT (BEAKER) (test 0.67 K/ L 0.24-0.36 tvwj=322) EOSINOPHILS ABSOLUTE COUNT (BEAKER) (test 0.17 K/ L 0.04-0.36 egvr=648) BASOPHILS ABSOLUTE COUNT (BEAKER) (test 0.05 K/ L 0.01-0.08 isgm=714) IMMATURE GRANULOCYTES-RELATIVE PERCENT (BEAKER) 5 % 0-1 (test fksn=5964) URINALYSIS W/ [id number] 20:08:00 Test Item Value Reference Range Comments COLOR (BEAKER) (test beom=483) Dark Yellow CLARITY (BEAKER) (test tvgj=786) Hazy SPECIFIC GRAVITY UA (BEAKER) (test 1.014 1.001-1.035 buhk=199) PH UA (BEAKER) (test yduj=605) 5.5 5.0-8.0 PROTEIN UA (BEAKER) (test ique=777) 20 mg/dL Negative GLUCOSE UA (BEAKER) (test xxpj=562) Negative Negative KETONES UA (BEAKER) (test nqcj=259) Negative Negative BILIRUBIN UA (BEAKER) (test ekvo=356) Positive Negative BLOOD UA (BEAKER) (test ziqa=737) Trace Negative NITRITE UA (BEAKER) (test meha=614) Negative Negative LEUKOCYTE ESTERASE UA (BEAKER) (test Large Negative mvxt=707) UROBILINOGEN UA (BEAKER) (test xude=527) 0.2 mg/dL 0.2-1.0 RBC UA (BEAKER) (test xqvq=885) 0 /HPF WBC UA (BEAKER) (test cqzz=381) > /HPF SQUAMOUS EPITHELIAL (BEAKER) (test 7 /HPF ajpn=127) SOURCE(BEAKER) (test jwve=0143) Urine, Clean Catch [id number] 07:14:00 Test Item Value Reference Range Comments MAGNESIUM (BEAKER) (test azzo=531) 1.8 mg/dL 1.6-2.6 BASIC METABOLIC [id number] 07:14:00 Test Item Value Reference Range Comments SODIUM (BEAKER) (test 141 meq/L 136-145 razf=481) POTASSIUM (BEAKER) (test 3.6 meq/L 3.5-5.1 kjhv=464) CHLORIDE (BEAKER) (test 104 meq/L 98-107 zgke=121) CO2 (BEAKER) (test 21 meq/L 22-29 domk=293) BLOOD UREA NITROGEN 31 mg/dL 7-21 (BEAKER) (test lwwi=397) CREATININE (BEAKER) (test 1.57 mg/dL 0.57-1.25 xcth=610) GLUCOSE RANDOM (BEAKER) 74 mg/dL 70-105 (test jutq=537) CALCIUM (BEAKER) (test 9.0 mg/dL 8.4-10.2 xrww=719) EGFR (BEAKER) (test 32 mL/min/1.73 sq m ESTIMATED GFR IS NOT yjwo=2616) ACCURATE CREATININE CLEARANCE IN PREDICTING GLOMERULAR FILTRATION RATE. ESTIMATED GFR IS NOT APPLICABLE FOR DIALYSIS PATIENTS. Specimen markedly ictericHEPATIC FUNCTION [id number] 07:14:00 Test Item Value Reference Range Comments TOTAL PROTEIN (BEAKER) (test psmx=543) 6.2 gm/dL 6.0-8.3 ALBUMIN (BEAKER) (test tqli=6873) 3.4 g/dL 3.5-5.0 BILIRUBIN TOTAL (BEAKER) (test nylt=607) 19.3 mg/dL 0.2-1.2 BILIRUBIN DIRECT (BEAKER) (test srau=798) 13.2 mg/dL 0.1-0.5 ALKALINE PHOSPHATASE (BEAKER) (test hvji=309) 1182 U/L 40-150 AST (SGOT) (BEAKER) (test ityp=002) 314 U/L 5-34 ALT (SGPT) (BEAKER) (test cpsj=914) 301 U/L 6-55 Specimen markedly ictericCBC W/PLT COUNT & AUTO [id number] 06:43 :00 Test Item Value Reference Range Comments WHITE BLOOD CELL COUNT (BEAKER) (test isfa=038) 11.0 K/ L 3.5-10.5 RED BLOOD CELL COUNT (BEAKER) (test zajz=419) 3.71 M/ L 3.93-5.22 HEMOGLOBIN (BEAKER) (test apuh=814) 11.9 GM/DL 11.2-15.7 HEMATOCRIT (BEAKER) (test nvlu=460) 35.2 % 34.1-44.9 MEAN CORPUSCULAR VOLUME (BEAKER) (test qrdz=904) 94.9 fL 79.4-94.8 MEAN CORPUSCULAR HEMOGLOBIN (BEAKER) (test 32.1 pg 25.6-32.2 ognc=682) MEAN CORPUSCULAR HEMOGLOBIN CONC (BEAKER) (test 33.8 GM/DL 32.2-35.5 vtzj=119) RED CELL DISTRIBUTION WIDTH (BEAKER) (test 16.4 % 11.7-14.4 dspq=086) PLATELET COUNT (BEAKER) (test xslb=272) 270 K/CU MM 150-450 MEAN PLATELET VOLUME (BEAKER) (test lqrc=570) 10.6 fL 9.4-12.3 NUCLEATED RED BLOOD CELLS (BEAKER) (test 0 /100 WBC 0-0 pkac=841) NEUTROPHILS RELATIVE PERCENT (BEAKER) (test 68 % potq=591) LYMPHOCYTES RELATIVE PERCENT (BEAKER) (test 18 % upsb=685) MONOCYTES RELATIVE PERCENT (BEAKER) (test 8 % wwgv=296) EOSINOPHILS RELATIVE PERCENT (BEAKER) (test 1 % bozs=136) BASOPHILS RELATIVE PERCENT (BEAKER) (test 1 % wtcr=422) NEUTROPHILS ABSOLUTE COUNT (BEAKER) (test 7.50 K/ L 1.56-6.13 ndbb=375) LYMPHOCYTES ABSOLUTE COUNT (BEAKER) (test 1.94 K/ L 1.18-3.74 rzea=612) MONOCYTES ABSOLUTE COUNT (BEAKER) (test 0.87 K/ L 0.24-0.36 yfqb=492) EOSINOPHILS ABSOLUTE COUNT (BEAKER) (test 0.15 K/ L 0.04-0.36 xkow=196) BASOPHILS ABSOLUTE COUNT (BEAKER) (test 0.09 K/ L 0.01-0.08 xsht=085) IMMATURE GRANULOCYTES-RELATIVE PERCENT (BEAKER) 4 % 0-1 (test yypv=3697) BASIC METABOLIC [id number] 16:47:00 Test Item Value Reference Range Comments SODIUM (BEAKER) (test 140 meq/L 136-145 zuxc=909) POTASSIUM (BEAKER) (test 3.4 meq/L 3.5-5.1 hxwz=516) CHLORIDE (BEAKER) (test 97 meq/L 98-107 pclo=759) CO2 (BEAKER) (test 28 meq/L 22-29 zdas=524) BLOOD UREA NITROGEN 32 mg/dL 7-21 (BEAKER) (test ckch=595) CREATININE (BEAKER) (test 2.08 mg/dL 0.57-1.25 fore=641) GLUCOSE RANDOM (BEAKER) 92 mg/dL 70-105 (test kklg=096) CALCIUM (BEAKER) (test 10.1 mg/dL 8.4-10.2 zgbf=214) EGFR (BEAKER) (test 23 mL/min/1.73 sq m ESTIMATED GFR IS NOT awbs=3981) ACCURATE CREATININE CLEARANCE IN PREDICTING GLOMERULAR FILTRATION RATE. ESTIMATED GFR IS NOT APPLICABLE FOR DIALYSIS PATIENTS. Specimen markedly [id number] 16:44:00 Test Item Value Reference Range Comments AMYLASE (BEAKER) (test lkfj=562) 186 U/L 25-125 Specimen markedly ictericHEPATIC FUNCTION [id number] 16:44:00 Test Item Value Reference Range Comments TOTAL PROTEIN (BEAKER) (test pmen=192) 7.4 gm/dL 6.0-8.3 ALBUMIN (BEAKER) (test bcvd=3971) 4.0 g/dL 3.5-5.0 BILIRUBIN TOTAL (BEAKER) (test yrua=702) 20.0 mg/dL 0.2-1.2 BILIRUBIN DIRECT (BEAKER) (test xdjw=617) 13.9 mg/dL 0.1-0.5 ALKALINE PHOSPHATASE (BEAKER) (test lzel=124) 1372 U/L 40-150 AST (SGOT) (BEAKER) (test bpoq=739) 377 U/L 5-34 ALT (SGPT) (BEAKER) (test wrpd=055) 433 U/L 6-55 Specimen markedly [id number] 16:44:00 Test Item Value Reference Range Comments LIPASE (BEAKER) (test qpxa=650) 316 U/L 8-78 Specimen markedly ictericPT/[id number] 16:30:00 Test Item Value Reference Range Comments PROTIME (BEAKER) (test klrh=534) 14.1 seconds 11.7-14.7 INR (BEAKER) (test jhed=865) 1.1 <=5.9 PARTIAL THROMBOPLASTIN TIME (BEAKER) (test 27.4 seconds 22.5-36.0 bqgk=494) RECOMMENDED COUMADIN/WARFARIN INR THERAPY RANGESSTANDARD DOSE: 2.0 - 3.0 Includes: PROPHYLAXIS forvenous thrombosis, systemic embolization; TREATMENT for venous thrombosis and/or pulmonary embolus.HIGH RISK: Target INR is 2.5-3.5 for patients with mechanical heart valves.CBC W/PLT COUNT & AUTO [id number] 16:24:00 Test Item Value Reference Range Comments WHITE BLOOD CELL COUNT (BEAKER) (test vonu=537) 14.1 K/ L 3.5-10.5 RED BLOOD CELL COUNT (BEAKER) (test jrul=422) 4.23 M/ L 3.93-5.22 HEMOGLOBIN (BEAKER) (test avxj=395) 13.4 GM/DL 11.2-15.7 HEMATOCRIT (BEAKER) (test hcwh=994) 39.8 % 34.1-44.9 MEAN CORPUSCULAR VOLUME (BEAKER) (test byux=307) 94.1 fL 79.4-94.8 MEAN CORPUSCULAR HEMOGLOBIN (BEAKER) (test 31.7 pg 25.6-32.2 vvzq=165) MEAN CORPUSCULAR HEMOGLOBIN CONC (BEAKER) (test 33.7 GM/DL 32.2-35.5 wxyl=734) RED CELL DISTRIBUTION WIDTH (BEAKER) (test 16.2 % 11.7-14.4 azzy=231) PLATELET COUNT (BEAKER) (test yycu=448) 352 K/CU MM 150-450 MEAN PLATELET VOLUME (BEAKER) (test azie=976) 10.6 fL 9.4-12.3 NUCLEATED RED BLOOD CELLS (BEAKER) (test 0 /100 WBC 0-0 fxve=761) NEUTROPHILS RELATIVE PERCENT (BEAKER) (test 75 % ajdi=145) LYMPHOCYTES RELATIVE PERCENT (BEAKER) (test 13 % zfmb=670) MONOCYTES RELATIVE PERCENT (BEAKER) (test 8 % nvav=158) EOSINOPHILS RELATIVE PERCENT (BEAKER) (test 1 % zkyl=691) BASOPHILS RELATIVE PERCENT (BEAKER) (test 1 % vmsa=634) NEUTROPHILS ABSOLUTE COUNT (BEAKER) (test 10.52 K/ L 1.56-6.13 zges=907) LYMPHOCYTES ABSOLUTE COUNT (BEAKER) (test 1.86 K/ L 1.18-3.74 jjyw=750) MONOCYTES ABSOLUTE COUNT (BEAKER) (test 1.06 K/ L 0.24-0.36 lpqf=569) EOSINOPHILS ABSOLUTE COUNT (BEAKER) (test 0.11 K/ L 0.04-0.36 fpwe=889) BASOPHILS ABSOLUTE COUNT (BEAKER) (test 0.09 K/ L 0.01-0.08 ooox=429) IMMATURE GRANULOCYTES-RELATIVE PERCENT (BEAKER) 3 % 0-1 (test hgjs=9447)
--- NOTE | 2019-06-07 23:05 | P.HP ---
Certification for Inpatient Patient admitted to: Inpatient With expected LOS: >2 Midnights Practitioner: I am a practitioner with admitting privileges, knowledge of patient current condition, hospital course, and medical plan of care. Services: Services provided to patient in accordance with Admission requirements found in Title 42 Section 412.3 of the Code of Federal Regulations Patient History Date of Service: 06/07/19 Reason for admission: END STAGE PANCREATIC CANCER, HIP FRACTURE History of Present Illness: MS. GREGG IS 78 YEARS OLD LADY WITH ADVANCED PANCREATIC CANCER SP CHEMOTHERAPY WHO IS GETTING WORSE, HAS BECOME VERY CACHECTIC, FELL AT HOME AND BROKE HIP. SHE ALSO HAS FREE AIR IN ABDOMEN. ER PA CALLED ME AND I TALKED TO THE DAUGHTER AND OTHER FAMILY IS NOW READY FOR HOSPICE. WHEN I SAW HER A MONTH AGO I SUSPECTED SHE WAS GOING THROUGH HER LAST STAGES BUT I DID NOT MENTION NOT TO TAKE AWAY HER WILL TO LIVE. SHE NOW IS READY. SHE IS IN SIGNIFICANT AMOUNT OF PAIN FROM HIP FRACTURE. Allergies No Known Allergies Allergy (Verified 02/28/18 19:21) Home Medications: Alendronate Sodium 1 tab PO SEECOM 06/07/19 Benazepril HCl 1 tab PO DAILY 06/07/19 Lactase [Lactose Fast Acting Relief] 1 tab PO DAILY 06/07/19 Levothyroxine Sodium 1 tab PO DAILY 06/07/19 Lipase/Protease/Amylase [Zenpep Dr 25,000 Unit Capsule] 1 tab PO TID 06/07/19 Ondansetron HCl 1 tab PO Q4H PRN 06/07/19 - Past Medical/Surgical History Has patient received pneumonia vaccine in the past: No Diabetic: No -: Pancreatic Cancer -: HTN -: Hypothyroidism -: Hyperlipidemia -: Whipple Surgery (2 weeks ago) -: hysterectomy -: vin - Family History Father -: Stroke Mother -: Cancer - Social History Smoking Status: Never smoker Alcohol use: No CD- Drugs: No Caffeine use: Yes Place of Residence: Home Review of Systems 10-point ROS is otherwise unremarkable General: Weakness, Malaise, As per HPI Physical Examination - Vital Signs Respirations: 20 Pulse Ox (%): 94 - Physical Exam General: Alert, Cachectic, Moderate distress HEENT: Atraumatic, PERRLA, Mucous membr. moist/pink, EOMI, Sclerae nonicteric Neck: Supple, 2+ carotid pulse no bruit, No LAD, Without JVD or thyroid abnormality Respiratory: Clear to auscultation bilaterally, Normal air movement Cardiovascular: Regular rate/rhythm, Normal S1 S2 Gastrointestinal: Normal bowel sounds, Tenderness (DIFFUSE MILD TENDER. ) Musculoskeletal: No tenderness Integumentary: No rashes Neurological: Normal gait, Normal speech, Normal strength at 5/5 x4 extr, Normal tone, Normal affect Lymphatics: No axilla or inguinal lymphadenopathy Assessment and Plan - Problems (Diagnosis) (1) Hip fracture Current Visit: Yes Status: Acute Plan: PAIN CONTROL. SHE IS NOT A SURGICAL CANDIDATE. Qualifiers: Fracture type: closed (2) Pancreatic cancer Onset Date: 03/05/18 Current Visit: No Status: Chronic Plan: MS. GREGG HAS GONE THROUGH ABOUT YEAR OF THERAPY NOW SHE IS TERMINAL AND SEVERELY CACHECTIC. SHE WANTS COMFORT CARE AND HOSPICE. SHE SAYS SHE IS READY NOW. WE WILL DO EVERYTHING TO KEEP HER COMFORTABLE. - Advance Directives Does patient have a Living Will: Yes Does patient have a Durable POA for Healthcare: Yes
[2019-06-08] MEDS: LORazepam 2 MG/ML VIAL IV PRN ×2 (00:42→20:21)
[2019-06-08] MEDS: PANTOPRAZOLE 40MG TABLET PO SCH (05:17)
[2019-06-08] MEDS: MORPHINE 2 MG/ML SYR IV PRN ×4 (06:26→17:17)
[2019-06-08] MEDS: SCOPOLAMINE HYDROBROMIDE PATCH TD SCH (09:00)
--- NOTE | 2019-06-08 15:36 | PN ---
Ms. Mir is a pancreatic cancer with advanced condition, who is frail, cachectic, down to a very low weight now. She came in yesterday for a fall and was found to have broken hip on the left side femor al neck fracture. She is extremely cachectic, frail, weak and she is in the hospital now for hospice for advanced pancreatic cancer, which as expected has failed chemotherapy. She started chemotherapy about a year ago, and as we know, chemo does not work for advanced pancreatic cancer. Family is und erstanding. Family has a nurse as a daughter and we placed her on hospice to see if she survives to 5 days or not. If she does, we will be placing at home with hospice, but currently pain control is v kvng important for this lady, who has a broken hip and with any movement, she is in significant amount of pain, so we have her immobilized with pain medications and on comfortable bed. MELL/VIKA Voice ID: [id number] Report ID: [id number]
[2019-06-09] MEDS: PANTOPRAZOLE 40MG TABLET PO SCH (05:35)
[2019-06-09] MEDS: MORPHINE 2 MG/ML SYR IV PRN ×3 (08:29→23:49)
[2019-06-09] MEDS: LORazepam 2 MG/ML VIAL IV PRN ×2 (08:36→17:08)
[2019-06-09] MEDS: FENTANYL 25 MCG/PATCH TD SCH (11:12)
--- NOTE | 2019-06-09 15:04 | PN ---
Subjective: She is semicomatose except when she wakes up and asks for water for a short duration of time. She is frail, cachectic, pancreatic cancer patient with metastases, on hospice in the hospital here. Family is medicating more often now for her pain and agitation. I will put her on Duragesic patch to see if we can facilitate home if possible. Currently, she is needing parenteral medications to control her symptoms. That plan is limited today. It is unclear how long she will be living whe ther 3 to 4 days or longer. Patient's family is understanding. MELL/VIKA Voice ID: [id number] Report ID: [id number]
[2019-06-10] MEDS: PANTOPRAZOLE 40MG TABLET PO SCH (03:26)
[2019-06-10] MEDS: LORazepam 2 MG/ML VIAL IV PRN ×3 (03:26→21:37)
[2019-06-10] MEDS ORDERED: SCOPOLAMINE HYDROBROMIDE PATCH TD SCH (09:00)
[2019-06-10] MEDS: MORPHINE 2 MG/ML SYR IV PRN ×3 (12:59→20:53)
[2019-06-11] MEDS: MORPHINE 2 MG/ML SYR IV PRN ×5 (01:00→21:21)
[2019-06-11] MEDS: LORazepam 2 MG/ML VIAL IV PRN ×5 (02:54→22:00)
[2019-06-11] MEDS: PANTOPRAZOLE 40MG TABLET PO SCH (06:02)
[2019-06-11] MEDS: SCOPOLAMINE HYDROBROMIDE PATCH TD SCH (08:57)
--- NOTE | 2019-06-11 09:27 | PN ---
Ms. Quiros is comatose now. She hardly wakes up or has any response to painful stimuli. She is suffer ing from end-stage pancreatic cancer, severely cachectic, frail and bed-bound, needing intravenous me dications to control her symptoms. Patient's family at bedside. I suspect that she will be possibly living for a few more days, hard to predict when she will , but family is comfortable with the care. RVD/MODL Voice ID: [id number] Report ID: [id number]
--- NOTE | 2019-06-11 18:17 | P.PN ---
Subjective Date of Service: 06/11/19 Chief Complaint: END STAGE PANCREATIC CANCER, HIP FRACTURE Subjective: Worsening MS. GREGG IS END STAGE PANCREATIC CANCER PATIENT WHO IS AGITATED EVERY FEW HOURS NEEDING IV MEDICATIONS. SHE IS NOT ABLE TO TAKE ANYTHING ORALLY TO CONTROL HER SYMPTOMS. Review of Systems is unable to be obtained Physical Examination - Vital Signs Temperature: 97.8 F Blood Pressure: 125/64 Pulse: 106 Respirations: 20 Pulse Ox (%): 94 - Physical Exam General: Cachectic, Comatose Assessment And Plan - Current Problems (Diagnosis) (1) Hip fracture Current Visit: Yes Status: Acute Plan: PAIN CONTROL. SHE IS NOT A SURGICAL CANDIDATE. Qualifiers: Fracture type: closed (2) Pancreatic cancer Onset Date: 03/05/18 Current Visit: No Status: Chronic Plan: MS. GREGG HAS GONE THROUGH ABOUT YEAR OF THERAPY NOW SHE IS TERMINAL AND SEVERELY CACHECTIC. SHE WANTS COMFORT CARE AND HOSPICE. SHE SAYS SHE IS READY NOW. WE WILL DO EVERYTHING TO KEEP HER COMFORTABLE. END STAGE CONDITION. DAILY WORSENING. NEEDS IV MEDS TO CONTROL HER PAIN AND AGITATION.
[2019-06-12] MEDS: MORPHINE 2 MG/ML SYR IV PRN ×6 (01:25→21:23)
[2019-06-12] MEDS: LORazepam 2 MG/ML VIAL IV PRN ×6 (01:55→22:22)
[2019-06-12] MEDS ORDERED: PANTOPRAZOLE 40MG TABLET PO SCH (07:30)
[2019-06-12] MEDS: FENTANYL 25 MCG/PATCH TD SCH (09:34)
--- NOTE | 2019-06-12 21:09 | P.PN ---
Subjective Date of Service: 06/12/19 Chief Complaint: END STAGE PANCREATIC CANCER, HIP FRACTURE Subjective: Worsening MS. GREGG IS END STAGE PANCREATIC CANCER PATIENT WHO IS AGITATED EVERY FEW HOURS NEEDING IV MEDICATIONS. SHE IS NOT ABLE TO TAKE ANYTHING ORALLY TO CONTROL HER SYMPTOMS. SHE IS MORE AGITATED NOW. MOVING HER L ARM WITH RESTLESSNESS STILL COMATOSE. DESPITE THE SCOP PATCH SHE STILL HAS SALIVA POOLING AND THROAT RATTLE. Review of Systems is unable to be obtained Physical Examination - Vital Signs Temperature: 99 F Blood Pressure: 123/58 Pulse: 105 Respirations: 14 Pulse Ox (%): 94 - Physical Exam General: Cachectic, Comatose (NO MAJOR MOVEMENT AT PAINFUL STIMULUS.) Assessment And Plan - Current Problems (Diagnosis) (1) Hip fracture Current Visit: Yes Status: Acute Plan: PAIN CONTROL. SHE IS NOT A SURGICAL CANDIDATE. Qualifiers: Fracture type: closed (2) Pancreatic cancer Onset Date: 03/05/18 Current Visit: No Status: Chronic Plan: MS. GREGG HAS GONE THROUGH ABOUT YEAR OF THERAPY NOW SHE IS TERMINAL AND SEVERELY CACHECTIC. SHE WANTS COMFORT CARE AND HOSPICE. SHE SAYS SHE IS READY NOW. WE WILL DO EVERYTHING TO KEEP HER COMFORTABLE. END STAGE CONDITION. DAILY WORSENING. NEEDS IV MEDS TO CONTROL HER PAIN AND AGITATION. LOW GRAD FEVER HAS STARTED. THROAT RATTLE IS NEW. NEEDS RECURRENT SUCTION DEVICE.
[2019-06-13] MEDS: MORPHINE 2 MG/ML SYR IV PRN ×6 (01:26→21:54)
[2019-06-13] MEDS: LORazepam 2 MG/ML VIAL IV PRN ×6 (02:35→23:34)
--- NOTE | 2019-06-13 21:37 | P.PN ---
Subjective Date of Service: 06/13/19 Chief Complaint: END STAGE PANCREATIC CANCER, HIP FRACTURE Subjective: Worsening MS. GREGG IS END STAGE PANCREATIC CANCER PATIENT WHO IS AGITATED EVERY FEW HOURS NEEDING IV MEDICATIONS. SHE IS NOT ABLE TO TAKE ANYTHING ORALLY TO CONTROL HER SYMPTOMS. SHE IS MORE AGITATED NOW. MOVING HER L ARM WITH RESTLESSNESS STILL COMATOSE. DESPITE THE SCOP PATCH SHE STILL HAS SALIVA POOLING AND THROAT RATTLE. COMATOSE BREATHING FAST. HIGH FEVER TODAY. Review of Systems is unable to be obtained Physical Examination - Vital Signs Temperature: 101.1 F Blood Pressure: 137/64 Pulse: 121 Respirations: 21 Pulse Ox (%): 89 - Physical Exam General: Cachectic, Moderate distress, Unresponsive, Comatose Respiratory: Diminished (RAPID) Assessment And Plan - Current Problems (Diagnosis) (1) Hip fracture Current Visit: Yes Status: Acute Plan: PAIN CONTROL. SHE IS NOT A SURGICAL CANDIDATE. Qualifiers: Fracture type: closed (2) Pancreatic cancer Onset Date: 03/05/18 Current Visit: No Status: Chronic Plan: MS. GREGG HAS GONE THROUGH ABOUT YEAR OF THERAPY NOW SHE IS TERMINAL AND SEVERELY CACHECTIC. SHE WANTS COMFORT CARE AND HOSPICE. SHE SAYS SHE IS READY NOW. WE WILL DO EVERYTHING TO KEEP HER COMFORTABLE. END STAGE CONDITION. DAILY WORSENING. NEEDS IV MEDS TO CONTROL HER PAIN AND AGITATION. LOW GRAD FEVER HAS STARTED. THROAT RATTLE IS NEW. NEEDS RECURRENT SUCTION DEVICE. GETTING WORSE DAILY. TRANSFER HOME WILL BE VERY DETRIMENTAL SHE WILL PASS ON TRANSIT. SHE IS NEEDING CONSTANT CARE.
[2019-06-14] MEDS: MORPHINE 2 MG/ML SYR IV PRN ×3 (01:55→10:21)
[2019-06-14] MEDS: LORazepam 2 MG/ML VIAL IV PRN ×3 (03:45→11:48)
[2019-06-14 08:02] VITALS: O2SAT 69
[2019-06-14] MEDS: SCOPOLAMINE HYDROBROMIDE PATCH TD SCH (08:03)
[2019-06-14 08:33] VITALS: BP 109/47; TEMP 102
--- NOTE | 2019-06-18 17:38 | P.DS ---
Admission Date: 06/07/19 Discharge Date: 06/18/19 Disposition: Reason for Admission: END STAGE PANCREATIC CANCER, HIP FRACTURE - Problems (1) Hip fracture Status: Acute Qualifiers: Fracture type: closed (2) Pancreatic cancer Onset Date: 03/05/18 Status: Chronic Brief History of Present Illness: MS. GREGG IS 78 YEARS OLD LADY WITH ADVANCED PANCREATIC CANCER SP CHEMOTHERAPY WHO IS GETTING WORSE, HAS BECOME VERY CACHECTIC, FELL AT HOME AND BROKE HIP. SHE ALSO HAS FREE AIR IN ABDOMEN. ER PA CALLED ME AND I TALKED TO THE DAUGHTER AND OTHER FAMILY IS NOW READY FOR HOSPICE. WHEN I SAW HER A MONTH AGO I SUSPECTED SHE WAS GOING THROUGH HER LAST STAGES BUT I DID NOT MENTION NOT TO TAKE AWAY HER WILL TO LIVE. SHE NOW IS READY. SHE IS IN SIGNIFICANT AMOUNT OF PAIN FROM HIP FRACTURE. Hospital Course: MS. GREGG EXIPRED EXPECTED FROM PANCREATIC CANCER. FAMILY AT BEDSIDE. I HAD DAILY DISCUSSION WITH FAMILY AT TIME OF HER EXAMINATION. Vital Signs/Physical Exam: Temp Pulse Resp BP Pulse Ox 102.0 F H 103 H 16 109/47 L 69 L 06/14/19 08:00 06/14/19 08:00 06/14/19 10:51 06/14/19 08:00 06/14/19 10:51 Home Medications: Alendronate Sodium 1 tab PO SEECOM 06/07/19 Benazepril HCl 1 tab PO DAILY 06/07/19 Lactase [Lactose Fast Acting Relief] 1 tab PO DAILY 06/07/19 Levothyroxine Sodium 1 tab PO DAILY 06/07/19 Lipase/Protease/Amylase [Chintan Dr 25,000 Unit Capsule] 1 tab PO TID 06/07/19 Ondansetron HCl 1 tab PO Q4H PRN 06/07/19
== END 2019-06-14 13:26 | disposition expired | DRG 951 ==
LOC: 4TH 16:15
PROVIDERS: ADMIT Internal Medicine; ATTEND Internal Medicine
DX: Z51.5 Encounter for palliative care (principal); S72.009A Fracture of unspecified part of neck of unspecified femur, initial encounter for closed fracture; C25.9 Malignant neoplasm of pancreas, unspecified; C79.9 Secondary malignant neoplasm of unspecified site; R64 Cachexia; Z68.1 Body mass index [BMI] 19.9 or less, adult
CPT/HCPCS: J2270